=== PATIENT | male | born 1940 | race Caucasian/White ===

== ENCOUNTER 2022-05-31 06:00 | Outpatient (RCR) | payer MEDICARE, OTHER, SELFPAY | END 2022-06-29 23:59 | disposition home or self-care (01) | LOC: SPT 06:00 | PROVIDERS: Family Provider Family Medicine; Visit Provider Family Medicine | DX: H81.10 Benign paroxysmal vertigo, unspecified ear (principal) | CPT/HCPCS: 97140; 97161 ==

== ENCOUNTER 2022-09-25 17:05 | Emergency (ER) | payer MEDICARE, OTHER, SELFPAY ==
[2022-09-25] VITALS (23 sets, daily range): BP systolic 157–184; BP diastolic 86–106; PULSE 63–70; RESP 14–24; TEMP 36.8; O2SAT 93–97; BMI 31.1
--- NOTE | 2022-09-25 17:51 | CTR_ITS ---
PROCEDURE INFORMATION: Exam: CT Head Without Contrast Exam date and time: 09/25/2022 6:08 PM Age: 82 years old Clinical indication: Injury or trauma; Fall; Blunt trauma (contusions or hematomas); Consciousness not specified; Additional info: Posterior head impact with laceration, 82 yo TECHNIQUE: Imaging protocol: Computed tomography of the head without contrast. Radiation optimization: All CT scans at this facility use at least one of these dose optimization techniques: automated exposure control; mA and/or kV adjustment per patient size (includes targeted exams where dose is matched to clinical indication); or iterative reconstruction. REPORTING DATA: Count of CT and Cardiac NM exams in prior 12 months: This patient has received 0 known CTs and 0 known cardiac nuclear medicine studies in the 12 months prior to the current study. COMPARISON: No relevant prior studies available. RADIATION DOSE METRICS: Total DLP (mGy-cm): 1107.18 FINDINGS: Brain: [id number] diffuse white matter disease likely reflecting chronic microvascular ischemic changes. Cerebral ventricles: No ventriculomegaly. Paranasal sinuses: Paranasal sinus opacifications. Mastoid air cells: Visualized mastoid air cells are well aerated. Bones/joints: Unremarkable. No acute fracture. Soft tissues: Unremarkable. CT/CT head wo con* [id number] IMPRESSION: Negative for intracranial hemorrhage or mass effect.
--- NOTE | 2022-09-25 17:52 | ED_ITS ---
HPI - Fall General: Chief Complaint: Fall Stated Complaint: fall Time Seen by Provider: 09/25/22 17:12 History of Present Illness: 82-year-old male with a history of reported intermittent paroxysmal vertigo. Patient states he had a sudden onset of vertigo which caused him to lose his balance and fall backwards. He hit the back of his head and has a laceration there. He says that he did not lose consciousness. The dizziness only lasted about 5 seconds. This is happened to him several times in the past but has not happened in about 9 to 12 months. He denies any recent illnesses, fevers, chills, medication changes, dehydration, blood in his stools, chest pain, palpitations or other precipitating causes. He denies any other injuries. He has no neck pain. He has a normal mental status now. He is on aspirin but not anticoagulated. His tetanus is reportedly up-to-date within the last 10 years. He has a hx of having to go to PT for vertigo. Associated symptoms-after fall: Denies abdominal pain, chest pain, difficulty walking or neck pain Review of Systems General: Reports: 10 or more systems reviewed and unremarkable except in HPI and below Const: Denies: fever(s), chills or body aches Eyes: Denies: change in vision ENMT: Denies: throat pain Card: Denies: chest pain, edema or syncope Resp: Denies: dyspnea or productive cough GI: Denies: abdominal pain, nausea, vomiting or diarrhea : Denies: flank pain, dysuria or urinary frequency Musc: Denies: neck pain, back pain, extremity pain or extremity swelling Skin/Breast: Reports: other (laceration); Denies: rash or erythema Neuro: Reports: other (Transient dizziness--only lasted 5 s so hard to jermaine racterize); Denies: numbness in extremities, weakness in extremities, lack of coordination or difficulty walking COUNT INCLUDES THE [facility] ED PFSH: Medical History (Updated 09/25/22 @ 18:41 by Tyrone Huffman MD) BPH loc w urin obs/LUTS Cataract Diabetes type 2, controlled Diabetic gastroparesis Dyslipidemia associated with type 2 diabetes mellitus GERD (gastroesophageal reflux disease) HTN (hypertension) with goal to be determined Rotator cuff dysfunction Stroke Syncope Surgical History (Updated 09/16/22 @ 11:05 by Popeye Hernández MD) H/O shoulder surgery H/O total knee replacement Physical Exam Const: COMMON NORMALS: no limitations, alert and well nourished EXAM LIMITATIONS: no altered mental status HENMT: COMMON NORMALS: external ears normal HEAD & SCALP: contusion and laceration; no abrasion, no Land's sign, no hematoma and no raccoon eyes EXTERNAL EAR: Yes external ears normal MOUTH: no muffled voice OTHER: 3.5 cm laceration low occipital scalp Eye: COMMON NORMALS: Equal, round and reactive pupils present, EOMs intact bilaterally, conjunctivae normal and no scleral icterus CONJUNCTIVA: Yes conjunctivae normal PUPIL: Yes Equal, round and reactive pupils present Neck/C-Spine: COMMON NORMALS: no JVD GENERAL: Yes normal visual inspection, Yes trachea midline and Yes other (No midline tenderness. Normal painless AROM and PROM) Resp: COMMON NORMALS: normal respiratory effort and No use of accessory muscles Cardio: COMMON NORMALS: no JVD, regular rate and regular rhythm RATE: regular rate RHYTHM: regular rhythm GI: COMMON NORMALS: Soft to palpation and non-tender PALPATION: Yes Soft to palpation and No Guarding due to palpation present (GI) Extremity: COMMON NORMALS: normal to inspection Neuro: COMMON NORMALS: moves all extremities, no focal motor deficits and no sensory deficits noted SENSORIUM/ORIENTATION: Yes alert SPEECH: speech normal Psych: COMMON NORMALS: mental status grossly normal, Normal thought process present, cooperative, normal affect and speech normal SPEECH: Yes normal speech THOUGHT PROCESS: Normal thought process present Skin: OTHER: scalp laceration Procedures Laceration Laceration 1: Site: scalp Size (cm): 3.5 Description: linear Depth: simple, single layer Local Anesthetic: other anesthetic (Patient did not desire anesthetic. It was cleaned with iodine prior to closing.) Pre-repair: wound explored and deep structures intact Skin layer closed with: other ([place]) Number of sutures: 6 Course Vital Signs: Vital signs: Vital Signs Temperature 98.2 F 09/25/22 17:16 Pulse Rate 64 09/25/22 18:40 Respiratory Rate 21 H 09/25/22 18:40 Blood Pressure 184/106 09/25/22 18:40 Pulse Oximetry 97 09/25/22 18:40 Oxygen Delivery Me thod 09/25/22 18:30 MDM - Fall Medical Decision Making 82-year-old male with a transient nonspecific dizziness lasting just 5 seconds. This will be difficult to characterize as it could be TIA, arrhythmia, peripheral vertigo, hypotension, orthostasis, etc. Patient is asymptomatic now. He did fall back and hit the back of his head. He has a 3.5 cm laceration which was repaired with jackelyn. A CT scan of his head without contrast was negative. Patient was given information about head injury and potential for delayed onset head bleed including subdural. His jackelyn will need to be removed in 1 week. I asked the patient and his friend to follow-up with his primary care doctor if he has another episode of dizziness or to return to the emergency department. Lab Data Radiology Impressions Head CT 09/25/22 17:51 IMPRESSION: Negative for intracranial hemorrhage or mass effect. Discharge Plan Discharge Patient Disposition: Home Clinical Impression: Closed head injury, Nonspecific dizziness, Laceration of scalp Condition: Stable Prescriptions: No Action (DME) lancets [Monolet Lancets] 21 gauge misc See Rx Instructions .ROUTE Rx Instructions: Test once a day. (DME) Contour Next Test Strips Strip See Rx Instructions .ROUTE Rx Instructions: Test once a day. peg 3350-electrolytes [GaviLyte-G] 236-22.74-6.74 -5.86 gram recon soln 240 ml PO Q10M Rx Instructions: until fecal effluent is clear triamcinolone acetonide 0.1 % cream 1 applic topical BID atenolol 50 mg tablet 50 mg PO DAILY Qty: 30 5RF meclizine 25 mg tablet 25 mg PO TID PRN (Reason: dizziness) Qty: 90 5RF metformin 1,000 mg tablet 1,000 mg PO BID Qty: 60 5RF metoclopramide HCl 10 mg tablet 10 mg PO BID Qty: 60 5RF pantoprazole 40 mg tablet,delayed release (DR/EC) 40 mg PO DAILY PRN (Reason: acid reflux) Qty: 30 5RF pravastatin 80 mg tablet 80 mg PO DAILY Qty: 30 5RF terazosin 10 mg capsule 10 mg PO DAILY Qty: 30 5RF valsartan 80 mg tablet 80 mg PO BID Qty: 60 5RF aspirin 81 mg tablet,delayed release (DR/EC) 81 mg PO DAILY mecobalamin (vitamin B12) 1,000 mcg tablet,chewable 1,000 mcg PO DAILY cholecalciferol (vitamin D3) 50 mcg (2,000 unit) capsule 50 mcg PO DAILY ferrous fumarate 325 mg (106 mg iron) tablet 325 mg PO DAILY 30 Days Qty: 30 0RF glimepiride 2 mg tablet 2 mg PO DAILY Qty: 30 5RF Discharge Orders: Discharge ED (Routine); Ordered 09/25/22 Ordered By: Tyrone Huffman Referrals: Popeye Hernández MD [Primary Care Provider] - 4-7 days (Transient dizzy spell. Fell down, hit back of head. Has scalp laceration.) Discharge Diet: Usual diet Discharge Activity: Increase activity as tolerated Patient Instructions: Head Injury (ED), Dizziness (ED), Staple Care (ED) Activity Restrictions/Additional Instructions: Your jackelyn need to be removed in 1 week. If there are signs of infection, return to ER. The dizziness was brief. If it returns or you start experiencing new symptoms, call your doctor or return to ER. Coding Level of Care Code ED [employer]r for [employer]
[2022-09-25] MEDS: scopolamine 1.5 Patch 1 PATCH TRANSDERMA (18:54)
== END 2022-09-25 19:03 | disposition home or self-care (01) ==
PROVIDERS: Emergency Provider Emergency Medicine; PCP Family Medicine Adult Medicine
DX: R42 Dizziness and giddiness (principal); S09.8XXA Other specified injuries of head, initial encounter; S01.01XA Laceration without foreign body of scalp, initial encounter; Z79.82 Long term (current) use of aspirin; Z79.84 Long term (current) use of oral hypoglycemic drugs; E11.9 Type 2 diabetes mellitus without complications; E78.5 Hyperlipidemia, unspecified; I10 Essential (primary) hypertension; Z86.73 Personal history of transient ischemic attack (TIA), and cerebral infarction without residual deficits; W18.30XA Fall on same level, unspecified, initial encounter; Z23 Encounter for immunization
CPT/HCPCS: 12002; 70450; 99284

== ENCOUNTER → 2022-09-30 09:31 | Outpatient (BNVA) | payer MEDICARE, OTHER, SELFPAY | PROVIDERS: PCP Family Medicine Adult Medicine; Visit Provider Family Medicine Adult Medicine | DX: I10 Essential (primary) hypertension (principal); R55 Syncope and collapse; E11.9 Type 2 diabetes mellitus without complications; E11.69 Type 2 diabetes mellitus with other specified complication; E78.5 Hyperlipidemia, unspecified; R42 Dizziness and giddiness | CPT/HCPCS: 80053; 80061; 83036; 84443; 85025 ==

== ENCOUNTER → 2022-12-29 09:39 | Outpatient (BNVA) | payer MEDICARE, OTHER, SELFPAY | PROVIDERS: PCP Family Medicine Adult Medicine; Visit Provider Family Medicine Adult Medicine | DX: E11.9 Type 2 diabetes mellitus without complications (principal); D61.818 Other pancytopenia; D64.9 Anemia, unspecified | CPT/HCPCS: 80048; 83036; 85025 ==

== ENCOUNTER → 2023-04-24 08:23 | Outpatient (BNVA) | payer MEDICARE, OTHER, SELFPAY | PROVIDERS: PCP Family Medicine Adult Medicine; Referring Provider Family Medicine Adult Medicine; Visit Provider Psychiatry & Neurology Neurology | DX: R41.3 Other amnesia (principal); E55.9 Vitamin D deficiency, unspecified; R44.1 Visual hallucinations; R47.02 Dysphasia | CPT/HCPCS: 0346U; 36415; 82306; 82542; 82607; 82746; 83735; 83921; 86592; 86780; 99203 ==

== ENCOUNTER 2023-05-23 07:51 | Outpatient (CLI) | payer MEDICARE, OTHER, SELFPAY ==
--- NOTE | 2023-05-23 08:00 | MR_ITS ---
WS: [id number] MRI HEAD WITHOUT CONTRAST TECHNIQUE: Sagittal T1, T2 axial, T2 axial FLAIR, axial and coronal T1 images, axial susceptibility w eighted imaging, axial diffusion weighted images, and coronal T2 images were obtained. CLINICAL INFORMATION: R41.3 - Other amnesia COMPARISON: CT 09/25/2022 FINDINGS: Small 6 mm focus of equivocal restricted diffusion involving the LEFT posterior frontal lobe at the c ortex laterally suspicious for a small amount of acute to subacute ischemia. Small amount of T2 signa l abnormality in this area. This is only seen on one image and could represent artifact or T2 shine t hrough. Otherwise no evidence of restricted diffusion. Advanced small vessel changes with moderate parenchyma l volume loss. Innumerable chronic infarcts and lacunar infarcts in the cerebellum bilaterally. Encep halomalacia in the LEFT cerebellar hemisphere. Normal vascular flow voids at the skull base. No extra -axial fluid collections. No evidence of mass or mass effect. Mild paranasal sinusitis. Mastoid air cells are well aerated. Normal posterior nasopharynx and paraph aryngeal fat. Small vessel changes in the arvind. Tiny chronic lacunar infarct LEFT thalamus. Moderate symmetric atrophy temporal lobes and hippocampal formations. Normal optic chiasm and pituitary infund ibulum. Tiny punctate focus of hemosiderin in the RIGHT cerebellum. No other suspicious findings. IMPRESSION: 1. Equivocal 6 mm focus of acute to subacute ischemia in the LEFT posterior frontal cortex laterally versus artifact or T2 shine through. This is only seen on one image. 2. Moderate to advanced small vessel changes with moderate parenchymal volume loss. 3. Innumerable chronic lacunar infarcts with peripheral cortical infarcts in the cerebellum LEFT gre ater than RIGHT with encephalomalacia. 4. Tiny chronic lacunar infarct in the LEFT thalamus. 5. Tiny punctate focus of hemosiderin in the RIGHT cerebellum. 6. Moderate symmetric atrophy temporal lobes and hippocampal formations. 7. Small vessel changes in the arvind. 8. Mild paranasal sinusitis.
--- NOTE | 2023-05-23 08:45 | USCV_ITS ---
Rufus Gonsalez Age: 83 Gender: M : 1940 Exam Date: 05/23/2023 08:48 Ordering Phys: Carlyle Pack MD Technologist: COLLEEN [place] [facility] [place]: DIZZINESS AND WEAKNESS Risk Factors: Previous Vascular Surgery: Right Brachial BP: / Left Brachial BP: / Right Left Velocity (cm/s) Spectral Plaque Velocity (cm/s) Spectral Plaque Syst/Diast Broadening Syst/Diast Broadening 63.00/ 13.40 Prox CCA 79.00 / 13.90 94.80/ 15.40 Mid CCA 68.20 / 16.10 47.90/ 13.70 Distal CCA 55.50 / 14.50 37.60/ 14.20 Prox ICA 38.40 / 11.80 47.60/ 11.40 Mid ICA 61.20 / 18.00 56.70/ 14.80 Distal ICA 59.00 / 18.70 76.90 ECA 64.90 0.60 ICA/CCA 0.77 Antegrade Vertebral Antegrade 51.30/ 14.00 cm/s 50.40/ 14.50 cm/s Tri Subclavian Tri 85.90 101.9 0 FINDINGS Comparison: none available. No significant elevation of systolic or diastolic velocities. Tortuous carotid arteries. Minimal atherosclerosis. Antegrade vertebral arteries. CONCLUSIONS Bilateral ICA stenosis less than 50%. Dr. Renee Low DO (Electronically Signed) Final Date: 23 May 2023 09:40 S
== END 2023-05-23 07:52 | disposition home or self-care (01) ==
LOC: RAD 07:52
PROVIDERS: PCP Family Medicine Adult Medicine; Visit Provider Psychiatry & Neurology Neurology
DX: R41.3 Other amnesia (principal); R42 Dizziness and giddiness; R53.1 Weakness; I65.23 Occlusion and stenosis of bilateral carotid arteries; I67.82 Cerebral ischemia; Z86.73 Personal history of transient ischemic attack (TIA), and cerebral infarction without residual deficits
CPT/HCPCS: 70551; 93880

== ENCOUNTER 2023-05-29 12:40 | Emergency (ER) | payer MEDICARE, OTHER, SELFPAY ==
[2023-05-29 13:07] VITALS: BP 184/99; PULSE 70; RESP 18; TEMP 36.6; O2SAT 93; BMI 31.1
--- NOTE | 2023-05-29 13:23 | ED_ITS ---
HPI - Fall General: Chief Complaint: Fall Stated Complaint: fall, left hand lac, face lac Time Seen by Provider: 05/29/23 13:01 Source: patient and family Mode of arrival: wheelchair Limitations: no limitations History of Present Illness: Patient is a very nice 83-year-old male who presents to the ED today presumably with his daughter for evaluation following a fall. Daughter states patient was getting out of his automatic recliner and states the foot rest was not fully down and patient got his foot caught up in it causing him to fall. He did strike his head. No LOC. His main complaint is a laceration to the palmar aspect of his left hand. He has minor abrasions to his face and left elbow with no tenderness here. He does report some neck pain. No back pain. Has been ambulatory without difficulty since the fall. Unknown last tetanus. He is not on anticoagulation. MD complaint: fall Onset (ago): hour(s) Fall from: standing Fall witnessed: yes, by family Place fall occurred: home Loss of consciousness: None Prolonged down time: no Symptoms prior to fall: none Context: tripped/slipped Location of injury: head, face and neck Location of injury - extremities: Left: elbow and hand Severity: mild Associated symptoms-after fall: Reports neck pain; Denies chest pain, difficulty walking, headache(s) or lightheadedness Review of Systems Eyes: Denies: change in vision, blurry vision, floaters or seeing flashes Card: Denies: chest pain, palpitations, lightheadedness, syncope or pre- syncope Resp: Denies: dyspnea GI: Denies: nausea or vomiting Musc: Reports: neck pain and extremity pain (L hand); Denies: back pain, extremity swelling, joint pain, joint swelling, joint redness, joint warmth or limited range of motion Skin/Breast: Reports: other (L hand laceration); Denies: rash Neuro: Denies: headache(s), numbness in extremities, weakness in extremities, sensory changes, difficulty walking or dizziness [facility] PFSH: Medical History Anemia Behavior related to cognitive impairment BPH loc w urin obs/LUTS Cataract CKD stage 3 due to type 2 diabetes mellitus Diabetes type 2, controlled 12/03/2020 A1C 6.4, & 09/30/2022 A1C 7.3 Diabetic gastroparesis Dyslipidemia associated with type 2 diabetes mellitus GERD (gastroesophageal reflux disease) HTN (hypertension) with goal to be determined Pancytopenia Restless legs syndrome (RLS) Rotator cuff dysfunction Stroke Surgical History H/O shoulder surgery H/O total knee replacement Social History Smoking and tobacco/nicotine status: never used tobacco/nicotine Alcohol intake: never Substance/Drug Use: never Physical Exam Const: COMMON NORMALS: no acute distress, average body habitus, patient oriented x3, no limitations, healthy appearing, alert and well nourished GENERAL APPEARANCE: cooperative ORIENTATION/CONSCIOUSNESS: Yes awake, Yes oriented to person, Yes oriented to place and Yes oriented to time HENMT: COMMON NORMALS: normocephalic, atraumatic and TM's normal bilaterally HEAD & SCALP: normal to inspection, normocephalic and atraumatic; no Land's sign, no hematoma and no raccoon eyes FACE & SINUS: normal facial exam and other (very minor facial abrasions with no bony tenderness) TYMPANIC MEMBRANE: TM's normal bilaterally MOUTH: other (no intraoral injuries noted) Eye: COMMON NORMALS: Equal, round and reactive pupils present and EOMs intact bilaterally GENERAL EYE: appearance normal, both eyes and all related structures and normal light reflex PUPIL: Yes Equal, round and reactive pupils present DIRECT OPHTHALMOSCOPY: Yes normal light reflex Neck/C-Spine: COMMON NORMALS: full ROM GENERAL: Yes normal visual inspectio n CERVICAL SPINE: Yes cervical ROM normal, No pain with cervical ROM, Yes Cervical spine tenderness, No step off deformity and Yes Paracervical muscle tenderness Chest: COMMONS NORMALS: normal inspection of the chest and normal palpation of entire chest wall Resp: COMMON NORMALS: normal respiratory effort and clear to auscultation bilaterally AUSCULTATION: clear to auscultation bilaterally Cardio: COMMON NORMALS: regular rate and regular rhythm RATE: regular rate RHYTHM: regular rhythm GI: COMMON NORMALS: Normal to inspection, nondistended, normoactive bowel sounds present, Soft to palpation, non-tender, No hepatosplenomegaly present and no masses INSPECTION: Yes normal to inspection and No abdominal wall ecchymosis AUSCULTATION: Yes normoactive bowel sounds PALPATION: Yes Soft to palpation and Yes No hepatosplenomegaly present Back/Pelvis: COMMON NORMALS: thoracic and lumbar spine normal to inspection, no thoracic nor lumbar tenderness and thoraco-lumbar ROM normal Extremity: COMMON NORMALS: full ROM, capillary refill normal and no joint enlargement GENERAL: Yes normal exam except as noted LEFT UPPER EXTREMITY: Yes hand & digits (3.0cm palmar laceration; no tendon involvement) Left hand and digits: Yes ROM (normal) and Yes neurovascular exam (normal) OTHER: minor skin tear L elbow w/o pain-full ROM Neuro: JAKE COMA SCALE: document GCS findings Jake coma scale eye opening: Spontaneous Jake coma scale verbal response: Orientated Jake coma scale motor response: Obey commands [place] coma scale total score: 15 COMMON NORMALS: patient oriented x3, CN's II-XII intact bilaterally, moves all extremities, no focal motor deficits, no sensory deficits noted and gait normal SENSORIUM/ORIENTATION: Yes alert, Yes oriented to person, Yes oriented to place and Yes oriented to time SPEECH: speech normal GAIT: Yes Normal gait present Skin: TRAUMA: abrasion (minor) and laceration (L hand) Procedures Laceration Laceration 1: Site: hand Side (If applicable): left Size (cm): 3.0 Description: irregular and clean Depth: simple, single layer Local Anesthetic: lidocaine 2% Amount of anesthesia used (mL): 3.0 Pre-repair: wound explored and irrigated extensively Skin layer closed with: nylon Size (cm): 3-0 Number of sutures: 4 Technique: simple, interrupted Course Vital Signs: Vital signs: Vital Signs Temperature 97.9 F 05/29/23 13:07 Pulse Rate 70 05/29/23 13:07 Respiratory Rate 18 05/29/23 13:07 Blood Pressure 184/99 05/29/23 13:07 Pulse Oximetry 93 05/29/23 13:07 Oxygen Delivery Me thod Room Air 05/29/23 13:07 MDM - Fall Medical Decision Making CT head/cervical spine negative. Hand XR negative. Laceration repaired as documented. Wound care/infection precautions discussed. Tetanus updated. Return to ED precautions given. Lab Data Radiology Impressions Hand X-Ray 05/29/23 13:23 IMPRESSION: No acute findings. All radiology interpretation(s) finalized by discharge Discharge Plan Discharge Patient Disposition: Home Clinical Impression: Fall on same level from tripping Laceration of left hand Qualifiers: Encounter type: initial encounter Foreign body presence: without foreign body Qualified Code(s): S61.412A - Laceration without foreign body of left hand, initial encounter Condition: Stable Prescriptions: No Action vitamin B complex [Vitamins B Complex] Tablet 1 tab PO DAILY Qty: 90 0RF ferrous sulfate 324 mg (65 mg iron) tablet,delayed release (DR/EC) 324 mg PO DAILY cetirizine [All Day Allergy (cetirizine)] 10 mg tablet 10 mg PO DAILY PRN peg 3350-electrolytes [GaviLyte-G] 236-22.74-6.74 -5.86 gram recon soln 240 ml PO Q10M Rx Instructions: until fecal effluent is clear triamcinolone acetonide 0.1 % cream 1 applic topical BID aspirin 81 mg tablet,delayed release (DR/EC) 81 mg PO DAILY cholecalciferol (vitamin D3) 50 mcg (2,000 unit) capsule 50 mcg PO DAILY meclizine 25 mg tablet 25 mg PO .q 6 hr PRN (Reason: dizziness) Qty: 30 3RF (DME) motorized wheelchair See Rx Instructions .Route .MEDSUPPLY Qty: 1 0RF Rx Instructions: As directed glimepiride 4 mg tablet 4 mg PO BID Qty: 180 3RF Rx Instructions: administer one tablet with breakfast and one with supper ropinirole 2 mg tablet 2 mg PO .qhs Qty: 90 0RF (DME) Contour Next Test Strips Strip See Rx Instructions .Route Qty: 100 3RF Rx Instructions: Test once a day. (DME) lancets [Microlet Lancet] Misc See Rx Instructions .Route Qty: 400 11RF Rx Instructions: As directed pantoprazole 40 mg tablet,delayed release (DR/EC) 40 mg PO DAILY PRN (Reason: acid reflux) Qty: 30 5RF metformin 1,000 mg tablet 1,000 mg PO BID Qty: 60 5RF metoclopramide HCl 10 mg tablet 10 mg PO BID Qty: 60 5RF atenolol 50 mg tablet 50 mg PO DAILY Qty: 30 5RF valsartan 80 mg tablet 80 mg PO BID Qty: 60 5RF pravastatin 80 mg tablet 80 mg PO DAILY Qty: 30 5RF tamsulosin 0.4 mg capsule 0.4 mg PO DAILY Qty: 30 5RF Discharge Orders: Discharge ED (Routine); Ordered 05/29/23 Ordered By: Sari Duarte Referrals: Popeye Hernández MD [Primary Care Provider] - Activity Restrictions/Additional Instructions: CT scans and hand XR were negative. Keep wound/laceration clean with warm soap and water twice daily. Monitor for signs of infection such as redness, swelling, increased pain, or drainage. Please seek medical re-evaluation if these occur. If you received sutures today these will need to be removed (unless you were told by the provider that they are absorbable). The provider should have discussed with you the length of time until removal-7 DAYS. You may return to the emergency department for this service. 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
--- NOTE | 2023-05-29 13:23 | CT_ITS ---
WS: [id number] CT CERVICAL TRAUMA TECHNIQUE: Noncontrast CT of the cervical spine with coronal and sagittal reformatted images. CLINICAL INFORMATION: fall COMPARISON: None. DLP: 1395.[address] scans at [facility] use at least one of these dose optimization techniques: automated e xposure control; mA and/or kV adjustment per patient size (includes targeted exams where dose is matc hed to clinical indication); or iterative reconstruction. FINDINGS: Straightening of the normal cervical lordosis. Moderate spondylitic changes. Mild cervical curve conv ex LEFT. Anterior hypertrophic changes C4-C6. Normal craniocervical junction. Normal C1-C2 articulati on. Dens is normal in appearance. Normal occipital condyles. No high-grade spinal canal narrowing. No rmal C1 ring. No evidence of acute fracture or dislocation. Normal prevertebral soft tissues. Mastoids air cells are well aerated. IMPRESSION: No evidence of acute fracture or dislocation.
--- NOTE | 2023-05-29 13:23 | CT_ITS ---
WS: [id number] CT HEAD TECHNIQUE: Noncontrast CT of the head obtained from the skullbase to the vertex. CLINICAL INFORMATION: fall, struck head COMPARISON: MRI 05/23/2023 DLP: 1395.[address] scans at [facility] use at least one of these dose optimization techniques: automated e xposure control; mA and/or kV adjustment per patient size (includes targeted exams where dose is matc hed to clinical indication); or iterative reconstruction. FINDINGS: No evidence of intracranial hemorrhage or mass effect. Ventricular system and basal cisterns are kaufman nt. Moderate small vessel changes with moderate parenchymal volume loss. Chronic encephalomalacia in the cerebellum unchanged since the prior MRI compatible with chronic infarcts. Intracranial vascular calcification. LEFT maxillary sinusitis with air-fluid level. Scattered fluid in the ethmoid air cells. Normal posterior nasopharynx. Mastoid air cells are well ae rated. IMPRESSION: 1. No evidence of intracranial hemorrhage or mass effect. 2. LEFT maxillary sinusitis. 3. Moderate small cell changes with moderate parenchymal volume loss. 4. Chronic infarcts in the cerebellum bilaterally with encephalomalacia unchanged.
--- NOTE | 2023-05-29 13:23 | XRR_ITS ---
PROCEDURE INFORMATION: Exam: XR Left Hand Exam date and time: 05/29/2023 1:28 PM Age: 83 years old Clinical indication: Injury or trauma; Other: Laceration; Hand; Left; Additional info: Fall, palmar laceration TECHNIQUE: Imaging protocol: Radiologic exam of the left hand. Views: 3 or more views. COMPARISON: No relevant prior studies available. FINDINGS: Bones/joints: Alignment is normal. Severe diffuse interphalangeal osteoarthritis. Mild osteoarthritis at the metacarpophalangeal joints. Moderate osteoarthritis at the triscaphe and 1st carpometacarpal joints. No acute fracture. Soft tissues: Visible soft tissues are unremarkable. No radiopaque foreign body. XR/XR hand LT min 3V* [id number] IMPRESSION: No acute findings.
[2023-05-29] MEDS: tetanus-dipt-pertussis 0.5 mL SDV IM (14:06)
== END 2023-05-29 15:04 | disposition home or self-care (01) ==
PROVIDERS: Emergency Provider Physician Assistant; PCP Family Medicine Adult Medicine
DX: S61.412A Laceration without foreign body of left hand, initial encounter (principal); Z79.82 Long term (current) use of aspirin; Z79.84 Long term (current) use of oral hypoglycemic drugs; E11.22 Type 2 diabetes mellitus with diabetic chronic kidney disease; I12.9 Hypertensive chronic kidney disease with stage 1 through stage 4 chronic kidney disease, or unspecified chronic kidney disease; N18.30 Chronic kidney disease, stage 3 unspecified; E78.5 Hyperlipidemia, unspecified; Z86.73 Personal history of transient ischemic attack (TIA), and cerebral infarction without residual deficits; Z23 Encounter for immunization; W01.0XXA Fall on same level from slipping, tripping and stumbling without subsequent striking against object, initial encounter
CPT/HCPCS: 12002; 70450; 72125; 73130; 90471; 90715; 99284

== ENCOUNTER 2023-06-08 13:09 | Emergency (ER) | payer MEDICARE, OTHER, SELFPAY ==
--- NOTE | 2023-06-08 13:24 | W.ED.UPPEXIN ---
HPI - Extremity Injury (Upper) General: Stated Complaint: need stiches taken out Time Seen by Provider: 06/08/23 13:22 History of Present Illness: Patient returns today from an incident that occurred on May 29 in which she had stitches placed into the palmar left hand. Patient is needing removal of sutures. Patient denies any complaints. Patient appears nontoxic. Patient appears in no pain. Wound appears well approximated and healed. Review of Systems General: Reports: 10 or more systems reviewed and unremarkable except in HPI and below PFSH ED PFSH: Medical History Anemia Behavior related to cognitive impairment BPH loc w urin obs/LUTS Cataract CKD stage 3 due to type 2 diabetes mellitus Diabetes type 2, controlled 12/03/2020 A1C 6.4, & 09/30/2022 A1C 7.3 Diabetic gastroparesis Dyslipidemia associated with type 2 diabetes mellitus GERD (gastroesophageal reflux disease) HTN (hypertension) with goal to be determined Pancytopenia Restless legs syndrome (RLS) Rotator cuff dysfunction Stroke Surgical History H/O shoulder surgery H/O total knee replacement Social History Smoking and tobacco/nicotine status: never used tobacco/nicotine Alcohol intake: never Substance/Drug Use: never Physical Exam Const: COMMON NORMALS: alert HENMT: COMMON NORMALS: normocephalic HEAD & SCALP: normocephalic Neck/C-Spine: COMMON NORMALS: full ROM Resp: COMMON NORMALS: normal respiratory effort Extremity: LEFT UPPER EXTREMITY: Yes hand & digits (Healed wound palmar hand) Left hand and digits: Yes ROM Neuro: SENSORIUM/ORIENTATION: Yes alert Skin: WOUNDS: Yes wounds noted (Left hand, sutures intact, well approximated, healed) MDM - Extremity Injury (Upper) Medical Decision Making 83-year-old male patient comes in today for removal of sutures. On exam patient has well-healed wound with sutures intact and area well approximated. Nursing removed sutures without difficulty. Patient was instructed to monitor site for signs of infection and to use an emollient to the wound to help with scarring. Patient reported understanding and agreed to plan. Differential diagnosis includes not limited to dehiscence of wound, wound infection, retained foreign body. No radiology studies performed this visit Discharge Plan Discharge Patient Disposition: Home Clinical Impression: Encounter for removal of sutures Condition: Stable Prescriptions: No Action vitamin B complex [Vitamins B Complex] Tablet 1 tab PO DAILY Qty: 90 0RF ferrous sulfate 324 mg (65 mg iron) tablet,delayed release (DR/EC) 324 mg PO DAILY cetirizine [All Day Allergy (cetirizine)] 10 mg tablet 10 mg PO DAILY PRN peg 3350-electrolytes [GaviLyte-G] 236-22.74-6.74 -5.86 gram recon soln 240 ml PO Q10M Rx Instructions: until fecal effluent is clear triamcinolone acetonide 0.1 % cream 1 applic topical BID aspirin 81 mg tablet,delayed release (DR/EC) 81 mg PO DAILY cholecalciferol (vitamin D3) 50 mcg (2,000 unit) capsule 50 mcg PO DAILY meclizine 25 mg tablet 25 mg PO .q 6 hr PRN (Reason: dizziness) Qty: 30 3RF (DME) motorized wheelchair See Rx Instructions .Route .MEDSUPPLY Qty: 1 0RF Rx Instructions: As directed glimepiride 4 mg tablet 4 mg PO BID Qty: 180 3RF Rx Instructions: administer one tablet with breakfast and one with supper ropinirole 2 mg tablet 2 mg PO .qhs Qty: 90 0RF (DME) Contour Next Test Strips Strip See Rx Instructions .Route Qty: 100 3RF Rx Instructions: Test once a day. (DME) lancets [Microlet Lancet] Misc See Rx Instructions .Route Qty: 400 11RF Rx Instructions: As directed pantoprazole 40 mg tablet,delayed release (DR/EC) 40 mg PO DAILY PRN (Reason: acid reflux) Qty: 30 5RF metformin 1,000 mg tablet 1,000 mg PO BID Qty: 60 5RF metoclopramide HCl 10 mg tablet 10 mg PO BID Qty: 60 5RF atenolol 50 mg tablet 50 mg PO DAILY Qty: 30 5RF pravastatin 80 mg tablet 80 mg PO DAILY Qty: 30 5RF valsartan 80 mg tablet 80 mg PO BID Qty: 180 1RF tamsulosin 0.4 mg capsule 0.4 mg PO DAILY Qty: 30 5RF Discharge Orders: Discharge ED (Routine); Ordered 06/08/23 Ordered By: Eric Erwin Referrals: Popeye Hernández MD [Primary Care Provider] - Discharge Diet: Usual diet Discharge Activity: Increase activity as tolerated Patient Instructions: Stitches Removal (ED) Activity Restrictions/Additional Instructions: Continue routine care. Monitor site for signs of infection such as redness, fever, or drainage. Return to ED for new concerns or worsening symptoms. Coding Level of Care Code ED [employer] for [employer]
== END 2023-06-08 14:20 | disposition home or self-care (01) ==
PROVIDERS: Emergency Provider Nurse Practitioner Family; PCP Family Medicine Adult Medicine
DX: Z48.02 Encounter for removal of sutures (principal); Z79.82 Long term (current) use of aspirin; Z79.84 Long term (current) use of oral hypoglycemic drugs; E11.22 Type 2 diabetes mellitus with diabetic chronic kidney disease; I12.9 Hypertensive chronic kidney disease with stage 1 through stage 4 chronic kidney disease, or unspecified chronic kidney disease; N18.30 Chronic kidney disease, stage 3 unspecified; E78.5 Hyperlipidemia, unspecified; Z86.73 Personal history of transient ischemic attack (TIA), and cerebral infarction without residual deficits
CPT/HCPCS: 99281

== ENCOUNTER → 2023-07-19 13:53 | Outpatient (BNVA) | payer MEDICARE, OTHER, SELFPAY | PROVIDERS: PCP Family Medicine Adult Medicine; Visit Provider Psychiatry & Neurology Neurology | DX: I63.9 Cerebral infarction, unspecified (principal); I12.9 Hypertensive chronic kidney disease with stage 1 through stage 4 chronic kidney disease, or unspecified chronic kidney disease; E11.22 Type 2 diabetes mellitus with diabetic chronic kidney disease; N18.30 Chronic kidney disease, stage 3 unspecified; Z79.84 Long term (current) use of oral hypoglycemic drugs | CPT/HCPCS: 99212 ==

== ENCOUNTER → 2023-08-18 10:46 | Outpatient (BNVA) | payer MEDICARE, OTHER, SELFPAY | PROVIDERS: PCP Family Medicine Adult Medicine; Visit Provider Family Medicine Adult Medicine | DX: I10 Essential (primary) hypertension (principal); E11.22 Type 2 diabetes mellitus with diabetic chronic kidney disease; N18.30 Chronic kidney disease, stage 3 unspecified; E11.9 Type 2 diabetes mellitus without complications; I63.9 Cerebral infarction, unspecified; R55 Syncope and collapse; E11.43 Type 2 diabetes mellitus with diabetic autonomic (poly)neuropathy; K31.84 Gastroparesis; K21.9 Gastro-esophageal reflux disease without esophagitis; E11.69 Type 2 diabetes mellitus with other specified complication; E78.5 Hyperlipidemia, unspecified; G25.81 Restless legs syndrome; N40.1 Benign prostatic hyperplasia with lower urinary tract symptoms; I63.512 Cerebral infarction due to unspecified occlusion or stenosis of left middle cerebral artery; D50.8 Other iron deficiency anemias | CPT/HCPCS: 80053; 83036 ==

== ENCOUNTER → 2023-11-08 14:53 | Outpatient (BNVA) | payer MEDICARE, OTHER, SELFPAY | PROVIDERS: PCP Family Medicine Adult Medicine; Visit Provider Psychiatry & Neurology Neurology | DX: Z86.73 Personal history of transient ischemic attack (TIA), and cerebral infarction without residual deficits (principal); R41.3 Other amnesia | CPT/HCPCS: 99212 ==

== ENCOUNTER → 2024-04-03 12:25 | Outpatient (BNVA) | payer MEDICARE, OTHER, SELFPAY | PROVIDERS: PCP Family Medicine Adult Medicine; Referring Provider Family Medicine Adult Medicine; Visit Provider Nurse Practitioner Family | DX: D48.5 Neoplasm of uncertain behavior of skin (principal); L57.0 Actinic keratosis; L57.8 Other skin changes due to chronic exposure to nonionizing radiation; L82.1 Other seborrheic keratosis; L81.4 Other melanin hyperpigmentation; L91.8 Other hypertrophic disorders of the skin; D22.5 Melanocytic nevi of trunk | CPT/HCPCS: 11102; 17000; 99203 ==

== ENCOUNTER → 2024-04-22 13:03 | Outpatient (BNVA) | payer MEDICARE, OTHER, SELFPAY | PROVIDERS: PCP Family Medicine Adult Medicine; Visit Provider Dermatology | DX: C44.319 Basal cell carcinoma of skin of other parts of face (principal); L30.0 Nummular dermatitis | CPT/HCPCS: 14040; 17311; 99214 ==

== ENCOUNTER → 2024-09-27 09:50 | Outpatient (BNVA) | payer MEDICARE, OTHER, SELFPAY | PROVIDERS: PCP Family Medicine Adult Medicine; Visit Provider Family Medicine | DX: D50.8 Other iron deficiency anemias (principal); I10 Essential (primary) hypertension; E11.69 Type 2 diabetes mellitus with other specified complication | CPT/HCPCS: 80053; 80061; 82728; 83036; 83550; 84439; 84443; 85025 ==

== ENCOUNTER → 2024-11-22 10:08 | Outpatient (BNVA) | payer MEDICARE, OTHER, SELFPAY | PROVIDERS: PCP Family Medicine; Visit Provider Nurse Practitioner Family | DX: L57.8 Other skin changes due to chronic exposure to nonionizing radiation (principal); L82.1 Other seborrheic keratosis; L81.4 Other melanin hyperpigmentation; L30.0 Nummular dermatitis; Z08 Encounter for follow-up examination after completed treatment for malignant neoplasm; Z85.828 Personal history of other malignant neoplasm of skin; L57.0 Actinic keratosis; D48.5 Neoplasm of uncertain behavior of skin | CPT/HCPCS: 11102; 17004; 99214 ==

== ENCOUNTER → 2024-12-18 10:52 | Outpatient (BNVA) | payer MEDICARE, OTHER, SELFPAY | PROVIDERS: PCP Family Medicine; Visit Provider Family Medicine | DX: N17.0 Acute kidney failure with tubular necrosis (principal); N40.1 Benign prostatic hyperplasia with lower urinary tract symptoms; I10 Essential (primary) hypertension; E11.69 Type 2 diabetes mellitus with other specified complication; K21.9 Gastro-esophageal reflux disease without esophagitis; E11.22 Type 2 diabetes mellitus with diabetic chronic kidney disease; N18.30 Chronic kidney disease, stage 3 unspecified; D50.8 Other iron deficiency anemias; E11.43 Type 2 diabetes mellitus with diabetic autonomic (poly)neuropathy; K31.84 Gastroparesis; G25.81 Restless legs syndrome; R53.81 Other malaise; R31.9 Hematuria, unspecified | CPT/HCPCS: 80053; 85025; 87086 ==

== ENCOUNTER 2024-12-20 16:01 | Emergency (ER) | payer MEDICARE, OTHER, SELFPAY ==
[2024-12-20 16:12] VITALS: BP 227/92; PULSE 66; RESP 18; TEMP 36.9; O2SAT 95; BMI 31.4
--- NOTE | 2024-12-20 16:21 | ED_ITS ---
HPI - Male Genitourinary 2 General: Chief complaint: Urogenital-Male Stated complaint: Blood in Urine Time Seen by Provider: 12/20/24 16:02 History of Present Illness: 84-year-old man with a history of man ia, anemia, restless legs, chronic kidney disease, BPH, hyperlipidemia, type 2 diabetes mellitus, stroke and hypertension who presents emergency room with concern for blood in his urine. Family had noticed his urine looked darker and thought it might be blood. Patient states symptoms started on Monday. Home health nurse called EMS because of urine being darker than usual today. No known fevers. No nausea or vomiting. No abdominal pain. No chest pain Related Data Home Medications ?Medication ?Instructions ?Recorded ?Confirmed cholecalciferol (vitamin D3) 50 50 mcg PO DAILY 12/18/24 mcg (2,000 unit) capsule Previous Rx's ?Medication ?Instructions ?Recorded motorized wheelchair #1 ea 10/25/22 aspirin 81 mg tablet,delayed 81 mg PO DAILY circulatio n #90 tabs 11/08/24 release atenolol 50 mg tablet See Rx Instructions .Route 0 11/08/24 .COMPLEX #90 tabs blood sugar diagnostic (Contour #100 ea 11/08/24 Next Test Strips) cetirizine 10 mg tablet (All Day 10 mg PO DAILY PRN Allergy (cetirizine)) allergy/diaainess #90 tabs ferrous sulfate 324 mg (65 mg 324 mg PO DAILY anemia # 90 tabs 11/08/24 iron) tablet,delayed release glimepiride 4 mg tablet 4 mg PO BID diabetes #180 ta bs 11/08/24 lancets (Microlet Lancet) #400 ea 11/08/24 meclizine 25 mg tablet 25 mg PO .q 6 hr PRN dizzine ss 11/08/24 #180 tabs metformin 1,000 mg tablet 1,000 mg PO BID diabetes #18 0 tabs 11/08/24 metoclopramide HCl 10 mg tablet 10 mg PO BID gastropar esis #180 11/08/24 tabs pantoprazole 40 mg tablet,delayed 40 mg PO DAILY PRN a anila reflux #90 11/08/24 release tabs pioglitazone 30 mg tablet (Actos) 30 mg PO DAILY diabe judy #90 tabs 11/08/24 ropinirole 2 mg tablet See Rx Instructions .Route 0 11/08/24 .COMPLEX #90 tabs sitagliptin phosphate 100 mg 100 mg PO DAILY diabetes #90 tabs 11/08/24 tablet (Januvia) tamsulosin 0.4 mg capsule See Rx Instructions .Route 0 11/08/24 .COMPLEX #90 caps valsartan 80 mg tablet 80 mg PO DAILY blood pressur e and 11/08/24 kidney protection #90 tabs hydrochlorothiazide 25 mg tablet 25 mg PO QAM #14 tabs 12/18/24 nitrofurantoin 100 mg PO Q12H 5 days #10 ca ps 12/18/24 monohydrate/macrocrystals 100 mg capsule (Macrobid) cefdinir 300 mg capsule 300 mg PO BID 7 days #14 cap s 12/20/24 Allergies Allergy/AdvReac Type Severity Reaction Status Date / Time No Known Allergies Allergy Verified 12/18/24 09:56 Review of Systems 2 Narrative: Constitutional symptoms: Negative except as documented in HPI. Skin symptoms: Negative except as documented in HPI. Eye symptoms: Negative except as documented in HPI. ENMT symptoms: Negative except as documented in HPI. Respiratory symptoms: Negative except as documented in HPI. Cardiovascular symptoms: Negative except as documented in HPI. Gastrointestinal symptoms: Negative except as documented in HPI. Genitourinary symptoms: Negative except as documented in HPI. Musculoskeletal symptoms: Negative except as documented in HPI. Neurologic symptoms: Negative except as documented in HPI. Psychiatric symptoms: Negative except as documented in HPI. Endocrine symptoms: Negative except as documented in HPI. PFSH ED 2 PFSH: Medical History Debilitated patient Health counseling Orthostatic dizziness Behavior related to cognitive impairment Anemia Pancytopenia Restless legs syndrome (RLS) CKD stage 3 due to type 2 diabetes mellitus BPH loc w urin obs/LUTS Dyslipidemia associated with type 2 diabetes mellitus GERD (gastroesophageal reflux disease) Diabetic gastroparesis Rotator cuff dysfunction Cataract HTN (hypertension) with goal to be determined Stroke Diabetes type 2, controlled Surgical History H/O shoulder surgery H/O total knee replacement Social History Smoking and tobacco/nicotine status: former use of tobacco/nicotine Alcohol intake: never Substance/Drug Use: never Physical Exam 2 Narrative: EXAM NARRATIVE: General: Alert, no acute distress. Skin: Warm, dry. Head: Normocephalic, atraumatic. Neck: Supple, trachea midline. Eye: Extraocular movements are intact. Ears, nose, mouth and throat: mucosa moist. Cardiovascular: Regular, Normal peripheral perfusion. Respiratory: Lungs are clear to auscultation, respirations are non-labored, breath sounds are equal, Symmetrical chest wall expansion. Gastrointestinal: Soft, Nontender, Non distended Musculoskeletal: Normal ROM, no deformity. Neurological: Alert and oriented, No focal neurological deficit observed. Psychiatric: Cooperative, appropriate mood & affect. Course 2 Vital Signs: Vital signs: Vital Signs Temperature 98.5 F 12/20/24 16:12 Pulse Rate 64 12/20/24 16:25 Respiratory Rate 18 12/20/24 16:12 Blood Pressure 176/76 12/20/24 16:25 Pulse Oximetry 92 12/20/24 16:25 Oxygen Delivery Me thod Room Air 12/20/24 16:25 MDM - Male Medical Decision Making Medical decision making: Differential diagnosis for complaint of hematuria including but not limited to and based on the above HPI, review of systems and physical exam: UTI / hemorrhagic cystitis, pyelonephritis, kidney stones, bladder cancer Orders placed to evaluate differential diagnosis based on the above differential, HPI and physical exam Lab Review: Laboratory results were reviewed and interpreted by myself the emergency room physician. No leukocytosis. Stable anemia. Creatinine slightly elevated over his baseline at 1.7. He was just darted on HCTZ. We are can hold that for now. Urine does show hematuria with very few whites. No bacteria. Will treat for possible continued urinary tract infection since he does have hematuria and have him follow with urology. With his worsening renal failure not going to do a CT with contrast today which could help evaluate this but I think cystoscopy with urology is a better choice at this time. I reviewed the patient's medical record. Reexamination: Patient remained stable. No increased work of breathing. No altered mental status. No focal motor deficits. Blood pressure has improved spontaneously. I discussed findings with his . She expresses understanding. Sounds like he has some worsening sundowning and dementia. This may need to be addressed by his primary as well. This is been going on for some time. I do not see any acute findings and there is not been an acute worsening of the symptoms. Assessment and plan: Hematuria Dehydration ? IV Rocephin and IV fluids. - Discharged home - Discussed plan with patient. Answered any questions. - Evaluation and treatment of this problem were appropriate in the emergency setting. Lab Data 12/20/24 16:12 12/20/24 16:12 Laboratory Results WBC 4.60 10^3/uL (3.29-11.43) 12/20/24 16:12 RBC 3.26 10^6/uL (3.85-5.65) L 12/20/24 16:12 Hgb 9.00 g/dL (11.27-16.99) L 12/20/24 16:12 Hct 29.5 % (37-53) L 12/20/24 16:12 MCV 90.5 fl (82-101) 12/20/24 16:12 MCH 27.6 pg (27-33) 12/20/24 16:12 MCHC 30.5 g/dL (30-55) 12/20/24 16:12 RDW 13.9 % (12.1-15.1) 12/20/24 16:12 Plt Count 140 10^3/cmm (157-399) L 12/20/24 16:12 MPV 9.7 fL (7.4-10.4) 12/20/24 16:12 Neut % (Auto) 63.3 % 12/20/24 16:12 Lymph % (Auto) 19.3 % 12/20/24 16:12 [place] % (Auto) 12.8 % 12/20/24 16:12 Eos % (Auto) 3.7 % 12/20/24 16:12 Baso % (Auto) 0.7 % 12/20/24 16:12 Neut # (Auto) 2.91 10^3/uL (1.8-7.7) 12/20/24 16:12 Lymph # (Auto) 0.9 10^3/uL (0.8-4.8) 12/20/24 16:12 [place] # (Auto) 0.6 10^3/uL (0.2-0.9) 12/20/24 16:12 Eos # (Auto) 0.2 10^3/uL (0.0-0.8) 12/20/24 16:12 Baso # (Auto) 0.0 10^3/uL (0.0-0.1) 12/20/24 16:12 Nucleated RBC % (auto) 0 % 12/20/24 16:12 Nucleated RBCs # 0.0 /100WBC 12/20/24 16:12 PT 12.70 SECONDS (12.1-14.9) 12/20/24 16:12 INR 0.90 (0.8-1.2) 12/20/24 16:12 APTT 26.6 SECONDS (23.9-36.7) 12/20/24 16:12 Sodium 143 mmol/L (136-145) 12/20/24 16:12 Potassium 3.5 mmol/L (3.5-5.1) 12/20/24 16:12 Chloride 104 mmol/L (98-107) 12/20/24 16:12 Carbon Dioxide 26 mmol/L (22-29) 12/20/24 16:12 Anion Gap 16.5 (5-19) 12/20/24 16:12 BUN 19 mg/dL (8-23) 12/20/24 16:12 Creatinine 1.7 mg/dL (0.7-1.2) H 12/20/24 16:12 GFR Calculation Not Reportable 12/20/24 16:12 Glucose 71 mg/dL (65-115) 12/20/24 16:12 Calculated Osmolality 297 mOsm/kg (285-295) H 12/20/24 16:12 Lactic Acid 1.4 mmol/L (0.5-2.2) 12/20/24 16:12 Calcium 8.6 mg/dL (8.5-10.5) 12/20/24 16:12 Total Bilirubin 0.6 mg/dL (0.15-1.2) 12/20/24 16:12 AST 14 U/L (0-40) 12/20/24 16:12 ALT 11 U/L (0-41) 12/20/24 16:12 Alkaline Phosphatase 51 U/L (40-130) 12/20/24 16:12 Total Protein 6.6 g/dL (6.6-8.7) 12/20/24 16:12 Albumin 4.0 g/dL (3.5-5.2) 12/20/24 16:12 Globulin 2.6 g/dL (1.3-4.6) 12/20/24 16:12 Urine Color Yellow (Yellow) 12/20/24 16:20 Urine Appearance Clear (CLEAR) 12/20/24 16:20 Urine pH 6.5 (5-7) 12/20/24 16:20 Ur Specific [place] 1.014 (1.005-1.030) 12/20/24 16:20 Urine Protein 2+ (Negative) A 12/20/24 16:20 Urine Glucose (UA) Negative (Normal) 12/20/24 16:20 Urine Ketones Negative (Negative) 12/20/24 16:20 Urine Blood 3+ (Negative) A 12/20/24 16:20 Urine Nitrate Negative (Negative) 12/20/24 16:20 Urine Bilirubin Negative (Negative) 12/20/24 16:20 Urine Urobilinogen 1.0 mg/dL (Negative) 12/20/24 16:20 Ur Leukocyte Esterase Negative (Negative) 12/20/24 16:20 Urine RBC >100 /hpf (0-2) H 12/20/24 16:20 Urine WBC 0-5 /hpf (0-5) 12/20/24 16:20 Ur Squamous Epith Cells 0-5 /hpf (0-5) 12/20/24 16:20 Amorphous Sediment Not Reportable 12/20/24 16:20 Urine Bacteria None seen /hpf (NONE) 12/20/24 16:20 Hyaline Casts 1.21 /lpf 12/20/24 16:20 No radiology studies performed this visit Discharge Plan Discharge Patient Disposition: Home Clinical Impression: Hematuria, Dehydration Condition: Stable Prescriptions: New cefdinir 300 mg capsule 300 mg PO BID 7 Days Qty: 14 0RF No Action aspirin 81 mg tablet,delayed release (DR/EC) 81 mg PO DAILY Qty: 90 3RF atenolol 50 mg tablet See Rx Instructions .ROUTE .COMPLEX Qty: 90 3RF Dose Instruction: TAKE 1 TABLET DAILY FOR BLOOD PRESSURE Rx Instructions: TAKE 1 TABLET DAILY FOR BLOOD PRESSURE (DME) Contour Next Test Strips Strip See Rx Instructions .Route Qty: 100 3RF Rx Instructions: Test once a day. cetirizine [All Day Allergy (cetirizine)] 10 mg tablet 10 mg PO DAILY PRN (Reason: allergy/diaainess) Qty: 90 3RF ferrous sulfate 324 mg (65 mg iron) tablet,delayed release (DR/EC) 324 mg PO DAILY Qty: 90 3RF glimepiride 4 mg tablet 4 mg PO BID Qty: 180 3RF Rx Instructions: administer one tablet with breakfast and one with supper (DME) lancets [Microlet Lancet] Misc See Rx Instructions .Route Qty: 400 11RF Rx Instructions: As directed meclizine 25 mg tablet 25 mg PO .q 6 hr PRN (Reason: dizziness) Qty: 180 3RF metformin 1,000 mg tablet 1,000 mg PO BID Qty: 180 3RF metoclopramide HCl 10 mg tablet 10 mg PO BID Qty: 180 3RF pantoprazole 40 mg tablet,delayed release (DR/EC) 40 mg PO DAILY PRN (Reason: acid reflux) Qty: 90 2RF pioglitazone [Actos] 30 mg tablet 30 mg PO DAILY Qty: 90 1RF ropinirole 2 mg tablet See Rx Instructions .ROUTE .COMPLEX Qty: 90 3RF Dose Instruction: TAKE 1 TABLET AT BEDTIME Rx Instructions: TAKE 1 TABLET AT BEDTIME Januvia 100 mg tablet 100 mg PO DAILY Qty: 90 1RF tamsulosin 0.4 mg capsule See Rx Instructions .ROUTE .COMPLEX Qty: 90 3RF Dose Instruction: TAKE 1 CAPSULE DAILY Rx Instructions: TAKE 1 CAPSULE DAILY valsartan 80 mg tablet 80 mg PO DAILY Qty: 90 3RF cholecalciferol (vitamin D3) 50 mcg (2,000 unit) capsule 50 mcg PO DAILY hydrochlorothiazide 25 mg tablet 25 mg PO QAM Qty: 14 0RF nitrofurantoin monohyd/m-cryst [Macrobid] 100 mg capsule 100 mg PO Q12H 5 Days Qty: 10 0RF Rx Instructions: must administer with a meal/food (DME) motorized wheelchair See Rx Instructions .Route .MEDSUPPLY Qty: 1 0RF Rx Instructions: As directed Discharge Orders: Discharge ED (Routine); Ordered 12/20/24 Ordered By: Maria Antonia Cook Referrals: Darren Roberts [Referring, Urology] Referral Note: Please call for follow-up with urologist for possible cystoscopy with either Dr. Roberts or urologist of your choosing Homero Roman MD [Primary Care Provider, Family Practice] Discharge Diet: Usual diet Discharge Activity: Increase activity as tolerated Patient Instructions: Hematuria (ED), Opioid Safety, Pain Management Activity Restrictions/Additional Instructions: Hold your hydrochlorothiazide over the weekend. Keep your follow-up with Dr. Roman. Thank you for choosing [facility] for your healthcare needs today. You have been screened and evaluated and felt safe for discharge. Health conditions do change or evolve sometimes and as such it is important that you follow up with your Primary Doctor to be re checked, 3-5 days is a general good time frame for follow up. 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
[2024-12-20 16:25] VITALS: BP 176/76; PULSE 64; O2SAT 92
[2024-12-20 16:33] LABS: Bilirubin Urine Negative (Negative); Blood Urine 3+ (Negative); Glucose Urine UA Negative (Normal); Ketones Urine Negative (Negative); Leukocyte Esterase Urine Negative (Negative); Nitrate Urine Negative (Negative); Protein Urine 2+ (Negative); Specific Gravity, Urine 1.014 (1.005-1.030); Urine Appearance Clear (CLEAR); Urine Color Yellow (Yellow); pH Urine 6.5 (5-7)
[2024-12-20 16:36] LABS: Bacteria Urine None Seen /hpf; Hyaline Casts Urine 1.21 /lpf; RBC Urine >100 /hpf (0-2); Squamous Epithelial Cell Urine 0-5 /hpf (0-5); WBC Urine 0-5 /hpf (0-5)
[2024-12-20 16:37] LABS: Basophils % 0.7 %; Eosinophils # 0.2 10^3/uL (0.0-0.8); Eosinophils % 3.7 %; Hematocrit 29.5 % (37-53); Lymphocytes # 0.9 10^3/uL (0.8-4.8); Lymphocytes % 19.3 %; Mean Corpuscular HGB Conc 30.5 g/dL (30-55); Mean Corpuscular Hemoglobin 27.6 pg (27-33); Mean Corpuscular Volume 90.5 fl (82-101); Mean Platelet Volume 9.7 fL (7.4-10.4); Monocytes # 0.6 10^3/uL (0.2-0.9); Monocytes % 12.8 %; Neutrophils # 2.91 10^3/uL (1.8-7.7); Neutrophils % 63.3 %; Nucleated Red Blood Cells % 0 %; Platelet Count 140 10^3/cmm (157-399); Red Blood Count 3.26 10^6/uL (3.85-5.65); Red Cell Distribution Width 13.9 % (12.1-15.1)
[2024-12-20 16:44] LABS: Lactic Sepsis W/Reflex 1.4 mmol/L (0.5-2.2)
[2024-12-20 16:50] LABS: Alanine Aminotransferase 11 U/L (0-41); Alkaline Phosphatase 51 U/L (40-130); Anion Gap 16.5 (5-19); Aspartate Amino Transferase 14 U/L (0-40); Blood Urea Nitrogen 19 mg/dL (8-23); Calcium 8.6 mg/dL (8.5-10.5); Carbon Dioxide 26 mmol/L (22-29); Chloride 104 mmol/L (98-107); Globulin 2.6 g/dL (1.3-4.6); Glucose 71 mg/dL (65-115); Osmolality Calculated 297 mOsm/kg (285-295); Potassium 3.5 mmol/L (3.5-5.1); Sodium 143 mmol/L (136-145); Total Bilirubin 0.6 mg/dL (0.15-1.2); Total Protein 6.6 g/dL (6.6-8.7)
[2024-12-20 16:57] LABS: Add Urine Culture? Yes
[2024-12-20] MEDS: sodium chloride 0.9% 500 ML 999 ML IV (17:03)
[2024-12-20 17:04] LABS: Partial Thromboplastin Time 26.6 SECONDS (23.9-36.7)
[2024-12-20 17:15] VITALS: PULSE 90; O2SAT 93
[2024-12-20] MEDS: cefTRIAXone 1,000 mg SDV 1000 MG IVP (17:43)
[2024-12-20 17:58] VITALS: BP 180/91; PULSE 89; O2SAT 94
== END 2024-12-20 17:59 | disposition home or self-care (01) ==
PROVIDERS: Emergency Provider Emergency Medicine; PCP Family Medicine
DX: R31.9 Hematuria, unspecified (principal); F03.90 Unspecified dementia, unspecified severity, without behavioral disturbance, psychotic disturbance, mood disturbance, and anxiety; D64.9 Anemia, unspecified; G25.81 Restless legs syndrome; N18.30 Chronic kidney disease, stage 3 unspecified; E11.43 Type 2 diabetes mellitus with diabetic autonomic (poly)neuropathy; K31.84 Gastroparesis; E11.69 Type 2 diabetes mellitus with other specified complication; E78.5 Hyperlipidemia, unspecified; E11.22 Type 2 diabetes mellitus with diabetic chronic kidney disease; I12.9 Hypertensive chronic kidney disease with stage 1 through stage 4 chronic kidney disease, or unspecified chronic kidney disease; Z86.73 Personal history of transient ischemic attack (TIA), and cerebral infarction without residual deficits; Z79.899 Other long term (current) drug therapy; N40.0 Benign prostatic hyperplasia without lower urinary tract symptoms; Z87.891 Personal history of nicotine dependence; E86.0 Dehydration; Z79.82 Long term (current) use of aspirin; Z79.84 Long term (current) use of oral hypoglycemic drugs
CPT/HCPCS: 36415; 80053; 81001; 83605; 85025; 85610; 85730; 87040; 87086; 96361; 96374; 99284; J0696; J7040

== ENCOUNTER → 2025-01-03 10:28 | Outpatient (BNVA) | payer MEDICARE, OTHER, SELFPAY | PROVIDERS: PCP Family Medicine; Visit Provider Registered Nurse Neonatal Intensive Care | DX: R39.9 Unspecified symptoms and signs involving the genitourinary system (principal) | CPT/HCPCS: 81000 ==

== ENCOUNTER 2025-01-31 16:04 | Emergency (ER) | payer MEDICARE, OTHER, SELFPAY ==
[2025-01-31 16:05] VITALS: BP 174/84; PULSE 65; RESP 16; TEMP 36.8; O2SAT 93; BMI 31.8
--- NOTE | 2025-01-31 16:09 | XRR_ITS ---
PROCEDURE INFORMATION: Exam: XR Chest Exam date and time: 01/31/2025 4:09 PM Age: 84 years old Clinical indication: Cough and dyspnea; Additional info: Dyspnea/cough TECHNIQUE: Imaging protocol: Radiologic exam of the chest. Views: 1 view. COMPARISON: CT cervical spin wo con* [id number] 05/29/2023 1:34 PM FINDINGS: Lungs: Unremarkable. No consolidation. Pleural spaces: Unremarkable. No pleural effusion. No pneumothorax. Heart/Mediastinum: Unremarkable. No cardiomegaly. Bones/joints: Mild and moderate multilevel spondylosis. Bilateral shoulder arthritis. Otherwise, unremarkable. XR/XR chest 1V portable [id number] IMPRESSION: No acute disease.
--- NOTE | 2025-01-31 16:11 | ED_ITS ---
Documented by User: Barber Fontaine DO 02/01/25 14:16 HPI - Weakness 2 General: Chief complaint: Weakness Stated complaint: weakness Time Seen by Provider: 01/31/25 16:09 History of Present Illness: 84-year-old male presents emergency room complaint of generalized weakness for the last 2 to 3 months at times he gets very dizzy he states he is fallen multiple times including twice yesterday has been looking at getting into a prison. He denies any chest pain denies any shortness of breath has not noticed anything that exacerbates or relieves his symptoms. No vomiting. He does notice that at times when he gets up in the morning he has urgency to urinate or lose control of his urine. Denies any fever sweats or chills no recent medication changes. According to his old chart he does have some mild dementia symptoms. He has had some behavior issues related to his dementia as well. He has chronic kidney disease and is diabetic. 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 Dyslipidemia associated with type 2 diabetes mellitus GERD (gastroesophageal reflux disease) Diabetic gastroparesis Rotator cuff dysfunction Cataract HTN (hypertension) with goal to be determined Stroke Diabetes type 2, controlled Surgical History H/O shoulder surgery H/O total knee replacement Social History Smoking and tobacco/nicotine status: former use of tobacco/nicotine Alcohol intake: never Substance/Drug Use: never Physical Exam 2 Const: COMMON NORMALS: no acute distress GENERAL APPEARANCE: cooperative and comfortable ORIENTATION/CONSCIOUSNESS: Yes awake, Yes oriented to person, Yes oriented to place and Yes oriented to time HENMT: COMMON NORMALS: normocephalic, atraumatic and hearing grossly normal bilaterally HEAD & SCALP: normocephalic and atraumatic Resp: COMMON NORMALS: normal respiratory effort, No retractions, No use of accessory muscles and clear to auscultation bilaterally AUSCULTATION: clear to auscultation bilaterally Cardio: COMMON NORMALS: regular rate, regular rhythm and No murmurs present (Cardio) RATE: regular rate RHYTHM: regular rhythm GI: COMMON NORMALS: Soft to palpation and No hepatosplenomegaly present A USCULTATION: Yes normoactive bowel sounds PALPATION: Yes Soft to palpation, No Tenderness to palpation present (GI), No Guarding due to palpation present (GI) and Yes No hepatosplenomegaly present Extremity: COMMON NORMALS: normal to inspection, capillary refill normal, no clubbing, cyanosis or edema, no calf tenderness and no pedal edema Neuro: SENSORIUM/ORIENTATION: Yes oriented to person, Yes oriented to place and Yes oriented to time Skin: COMMON NORMALS: no rashes or lesions noted GENERAL SKIN EXAM: no rashes or lesions noted Course 2 Vital Signs: Vital signs: Vital Signs Temperature 98.2 F 01/31/25 16:05 Pulse Rate 68 01/31/25 20:06 Respiratory Rate 16 01/31/25 16:05 Blood Pressure 191/96 01/31/25 20:06 Pulse Oximetry 94 01/31/25 20:06 Oxygen Delivery Me thod Room Air 01/31/25 19:00 MDM - Weakness Medical Decision Making Care signed out to Dr. Verduzco at change of shift. See final notes for diagnosis and disposition. Patient with generalized weakness. This been ongoing for several months. He has chronic anemia and chronic renal insufficiency. None of his workup today shows anything of acute changes or concerning abnormalities that would require admission or emergent evaluation or treatment. Discussed with patient the findings. They are trying to get into a prison and I recommend they continue following up with her primary care physician to facilitate this. Lab Data 01/31/25 17:24 01/31/25 17:24 Radiology Impressions Chest X-Ray 01/31/25 16:09 IMPRESSION: No acute disease. Head CT 01/31/25 16:31 IMPRESSION: 1. No acute intracranial findings. 2. Additional details as above. Laboratory Results WBC 4.42 10^3/uL (3.29-11.43) 01/31/25 17: RBC 3.32 10^6/uL (3.85-5.65) L 01/31/25 17:24 Hgb 9.20 g/dL (11.27-16.99) L 01/31/25 17:24 Hct 30.0 % (37-53) L 01/31/25 17: MCV 90.4 fl (82-101) 01/31/25 17:24 MCH 27.7 pg (27-33) 01/31/25 17: MCHC 30.7 g/dL (30-55) 01/31/25 17: RDW 14.3 % (12.1-15.1) 01/31/25 17: Plt Count 131 10^3/cmm (157-399) L 01/31/25 17: MPV 10.3 fL (7.4-10.4) 01/31/25 17: Neut % (Auto) 53.6 % 01/31/25 17:24 Lymph % (Auto) 28.5 % 01/31/25 17:24 [place] % (Auto) 12.4 % 01/31/25 17: Eos % (Auto) 4.1 % 01/31/25: Baso % (Auto) 0.9 % 01/31/25: Neut # (Auto) 2.37 10^3/uL (1.8-7.7) 01/31/25 17:24 Lymph # (Auto) 1.3 10^3/uL (0.8-4.8) 01/31/25 17:24 [place] # (Auto) 0.6 10^3/uL (0.2-0.9) 01/31/25 17: Eos # (Auto) 0.2 10^3/uL (0.0-0.8) 01/31/25 17:24 Baso # (Auto) 0.0 10^3/uL (0.0-0.1) 01/31/25 17:24 Nucleated RBC % (auto) 0 % 01/31/25 17: Nucleated RBCs # 0.0 /100WBC 01/31/25 17:24 Sodium 141 mmol/L (136-145) 01/31/25 17:24 Potassium 4.0 mmol/L (3.5-5.1) 01/31/25 17:24 Chloride 104 mmol/L (98-107) 01/31/25 17:24 Carbon Dioxide 24 mmol/L (22-29) 01/31/25 17:24 Anion Gap 17.0 (5-19) 01/31/25 17:24 BUN 26 mg/dL (8-23) H 01/31/25 17:24 Creatinine 1.6 mg/dL (0.7-1.2) H 01/31/25 17:24 GFR Calculation Not Reportable 01/31/25 17:24 Glucose 143 mg/dL (65-115) H 01/31/25 17:24 Calculated Osmolality 299 mOsm/kg (285-295) H 01/31/25 17:24 Calcium 9.2 mg/dL (8.5-10.5) 01/31/25 17:24 Total Bilirubin 0.4 mg/dL (0.15-1.2) 01/31/25 17:24 AST 17 U/L (0-40) 01/31/25 17:24 ALT 10 U/L (0-41) 01/31/25 17:24 Alkaline Phosphatase 49 U/L (40-130) 01/31/25 17:24 Creatine Kinase 194 U/L (39-308) 01/31/25 17:24 Total Protein 6.2 g/dL (6.6-8.7) L 01/31/25 17:24 Albumin 3.9 g/dL (3.5-5.2) 01/31/25 17:24 Globulin 2.3 g/dL (1.3-4.6) 01/31/25 17:24 Lipase 21 U/L (13-60) 01/31/25 17:24 Urine Color Yellow (Yellow) 01/31/25 17:00 Urine Appearance Clear (CLEAR) 01/31/25 17:00 Urine pH 5.0 (5-7) 01/31/25 17:00 Ur Specific [place] 1.019 (1.005-1.030) 01/31/25 17:00 Urine Protein 2+ (Negative) A 01/31/25 17:00 Urine Glucose (UA) Negative (Normal) 01/31/25 17:00 Urine Ketones Trace (Negative) 01/31/25 17:00 Urine Blood Negative (Negative) 01/31/25 17:00 Urine Nitrate Negative (Negative) 01/31/25 17:00 Urine Bilirubin Negative (Negative) 01/31/25 17:00 Urine Urobilinogen 0.2 mg/dL (Negative) 01/31/25 17:00 Ur Leukocyte Esterase Negative (Negative) 01/31/25 17:00 Urine RBC 0-2 /hpf (0-2) 01/31/25 17:00 Urine WBC 0-5 /hpf (0-5) 01/31/25 17:00 Ur Squamous Epith Cells 0-5 /hpf (0-5) 01/31/25 17:00 Amorphous Sediment Not Reportable 01/31/25 17:00 Urine Bacteria None seen /hpf (NONE) 01/31/25 17:00 Hyaline Casts 0.40 /lpf 01/31/25 17:00 Discharge Plan Discharge Patient Disposition: Home Clinical Impression: Generalized weakness Condition: Stable Prescriptions: No Action aspirin 81 mg tablet,delayed release (DR/EC) 81 mg PO DAILY Qty: 90 3RF atenolol 50 mg tablet See Rx Instructions .ROUTE .COMPLEX Qty: 90 3RF Dose Instruction: TAKE 1 TABLET DAILY FOR BLOOD PRESSURE Rx Instructions: TAKE 1 TABLET DAILY FOR BLOOD PRESSURE (DME) Contour Next Test Strips Strip See Rx Instructions .Route Qty: 100 3RF Rx Instructions: Test once a day. cetirizine [All Day Allergy (cetirizine)] 10 mg tablet 10 mg PO DAILY PRN (Reason: allergy/diaainess) Qty: 90 3RF ferrous sulfate 324 mg (65 mg iron) tablet,delayed release (DR/EC) 324 mg PO DAILY Qty: 90 3RF glimepiride 4 mg tablet 4 mg PO BID Qty: 180 3RF Rx Instructions: administer one tablet with breakfast and one with supper (DME) lancets [Microlet Lancet] Misc See Rx Instructions .Route Qty: 400 11RF Rx Instructions: As directed meclizine 25 mg tablet 25 mg PO .q 6 hr PRN (Reason: dizziness) Qty: 180 3RF metformin 1,000 mg tablet 1,000 mg PO BID Qty: 180 3RF metoclopramide HCl 10 mg tablet 10 mg PO BID Qty: 180 3RF pantoprazole 40 mg tablet,delayed release (DR/EC) 40 mg PO DAILY PRN (Reason: acid reflux) Qty: 90 2RF pioglitazone [Actos] 30 mg tablet 30 mg PO DAILY Qty: 90 1RF ropinirole 2 mg tablet See Rx Instructions .ROUTE .COMPLEX Qty: 90 3RF Dose Instruction: TAKE 1 TABLET AT BEDTIME Rx Instructions: TAKE 1 TABLET AT BEDTIME Januvia 100 mg tablet 100 mg PO DAILY Qty: 90 1RF tamsulosin 0.4 mg capsule See Rx Instructions .ROUTE .COMPLEX Qty: 90 3RF Dose Instruction: TAKE 1 CAPSULE DAILY Rx Instructions: TAKE 1 CAPSULE DAILY valsartan 80 mg tablet 80 mg PO DAILY Qty: 90 3RF cholecalciferol (vitamin D3) 50 mcg (2,000 unit) capsule 50 mcg PO DAILY (DME) motorized wheelchair See Rx Instructions .Route .MEDSUPPLY Qty: 1 0RF Rx Instructions: As directed hydrochlorothiazide 25 mg tablet 25 mg PO QAM Qty: 14 0RF Discharge Orders: Discharge ED (Routine); Ordered 01/31/25 Ordered By: Felipe Verduzco Referrals: Homero Roman MD [Primary Care Provider, Family Practice] Discharge Diet: Advance as tolerated Patient Instructions: Opioid Safety, Pain Management, Patient Portal & [place] Instructions Print Language: Citizen Of [place] Coding Level of Care Code ED Cell Operation Supervisor for Chg Fwd Related Data Home Medications ?Medication ?Instructions ?Recorded ?Confirmed cholecalciferol (vitamin D3) 50 50 mcg PO DAILY 01/03/25 mcg (2,000 unit) capsule Previous Rx's ?Medication ?Instructions ?Recorded motorized wheelchair #1 ea 10/25/22 aspirin 81 mg tablet,delayed 81 mg PO DAILY circulatio n #90 tabs 11/08/24 release atenolol 50 mg tablet See Rx Instructions .Route 0 11/08/24 .COMPLEX #90 tabs blood sugar diagnostic (Contour #100 ea 11/08/24 Next Test Strips) cetirizine 10 mg tablet (All Day 10 mg PO DAILY PRN Allergy (cetirizine)) allergy/diaainess #90 tabs ferrous sulfate 324 mg (65 mg 324 mg PO DAILY anemia # 90 tabs 11/08/24 iron) tablet,delayed release glimepiride 4 mg tablet 4 mg PO BID diabetes #180 ta bs 11/08/24 lancets (Microlet Lancet) #400 ea 11/08/24 meclizine 25 mg tablet 25 mg PO .q 6 hr PRN dizzine ss 11/08/24 #180 tabs metformin 1,000 mg tablet 1,000 mg PO BID diabetes #18 0 tabs 11/08/24 metoclopramide HCl 10 mg tablet 10 mg PO BID gastropar esis #180 11/08/24 tabs pantoprazole 40 mg tablet,delayed 40 mg PO DAILY PRN a anila reflux #90 11/08/24 release tabs pioglitazone 30 mg tablet (Actos) 30 mg PO DAILY diabe judy #90 tabs 11/08/24 ropinirole 2 mg tablet See Rx Instructions .Route 0 11/08/24 .COMPLEX #90 tabs sitagliptin phosphate 100 mg 100 mg PO DAILY diabetes #90 tabs 11/08/24 tablet (Januvia) tamsulosin 0.4 mg capsule See Rx Instructions .Route 0 11/08/24 .COMPLEX #90 caps valsartan 80 mg tablet 80 mg PO DAILY blood pressur e and 11/08/24 kidney protection #90 tabs hydrochlorothiazide 25 mg tablet 25 mg PO QAM #14 tabs 01/10/25 Allergies Allergy/AdvReac Type Severity Reaction Status Date / Time No Known Allergies Allergy Verified 01/03/25 10:18 Documented by User: Felipe Verduzco MD 01/31/25 19:43 HPI - Weakness 2 General: Chief complaint: Weakness Stated complaint: weakness Time Seen by Provider: 01/31/25 16:09 PFSH ED 2 PFSH: Medical History Debilitated patient Health counseling Orthostatic dizziness Behavior related to cognitive impairment Anemia Pancytopenia Restless legs syndrome (RLS) CKD stage 3 due to type 2 diabetes mellitus BPH loc w urin obs/LUTS Dyslipidemia associated with type 2 diabetes mellitus GERD (gastroesophageal reflux disease) Diabetic gastroparesis Rotator cuff dysfunction Cataract HTN (hypertension) with goal to be determined Stroke Diabetes type 2, controlled Surgical History H/O shoulder surgery H/O total knee replacement Social History Smoking and tobacco/nicotine status: former use of tobacco/nicotine Alcohol intake: never Substance/Drug Use: never Course 2 Vital Signs: Vital signs: Vital Signs Temperature 98.2 F 01/31/25 16:05 Pulse Rate 68 01/31/25 20:06 Respiratory Rate 16 01/31/25 16:05 Blood Pressure 191/96 01/31/25 20:06 Pulse Oximetry 94 01/31/25 20:06 Oxygen Delivery Me thod Room Air 01/31/25 19:00 MDM - Weakness Medical Decision Making Patient with generalized weakness. This been ongoing for several months. He has chronic anemia and chronic renal insufficiency. None of his workup today shows anything of acute changes or concerning abnormalities that would require admission or emergent evaluation or treatment. Discussed with patient the findings. They are trying to get into a prison and I recommend they continue following up with her primary care physician to facilitate this. Lab Data 01/31/25 17:24 01/31/25 17:24 Radiology Impressions Chest X-Ray 01/31/25 16:09 IMPRESSION: No acute disease. Head CT 01/31/25 16:31 IMPRESSION: 1. No acute intracranial findings. 2. Additional details as above. Laboratory Results WBC 4.42 10^3/uL (3.29-11.43) 01/31/25 17:24 RBC 3.32 10^6/uL (3.85-5.65) L 01/31/25 17:24 Hgb 9.20 g/dL (11.27-16.99) L 01/31/25 17:24 Hct 30.0 % (37-53) L 01/31/25 17:24 MCV 90.4 fl (82-101) 01/31/25 17:24 MCH 27.7 pg (27-33) 01/31/25 17:24 MCHC 30.7 g/dL (30-55) 01/31/25 17:24 RDW 14.3 % (12.1-15.1) 01/31/25 17:24 Plt Count 131 10^3/cmm (157-399) L 01/31/25 17:24 MPV 10.3 fL (7.4-10.4) 01/31/25 17:24 Neut % (Auto) 53.6 % 01/31/25 17:24 Lymph % (Auto) 28.5 % 01/31/25 17:24 [place] % (Auto) 12.4 % 01/31/25 17:24 Eos % (Auto) 4.1 % 01/31/25 17:24 Baso % (Auto) 0.9 % 01/31/25 17:24 Neut # (Auto) 2.37 10^3/uL (1.8-7.7) 01/31/25 17:24 Lymph # (Auto) 1.3 10^3/uL (0.8-4.8) 01/31/25 17:24 [place] # (Auto) 0.6 10^3/uL (0.2-0.9) 01/31/25 17:24 Eos # (Auto) 0.2 10^3/uL (0.0-0.8) 01/31/25 17:24 Baso # (Auto) 0.0 10^3/uL (0.0-0.1) 01/31/25 17:24 Nucleated RBC % (auto) 0 % 01/31/25 17:24 Nucleated RBCs # 0.0 /100WBC 01/31/25 17:24 Sodium 141 mmol/L (136-145) 01/31/25 17:24 Potassium 4.0 mmol/L (3.5-5.1) 01/31/25 17:24 Chloride 104 mmol/L (98-107) 01/31/25 17:24 Carbon Dioxide 24 mmol/L (22-29) 01/31/25 17:24 Anion Gap 17.0 (5-19) 01/31/25 17:24 BUN 26 mg/dL (8-23) H 01/31/25 17:24 Creatinine 1.6 mg/dL (0.7-1.2) H 01/31/25 17:24 GFR Calculation Not Reportable 01/31/25 17:24 Glucose 143 mg/dL (65-115) H 01/31/25 17:24 Calculated Osmolality 299 mOsm/kg (285-295) H 01/31/25 17:24 Calcium 9.2 mg/dL (8.5-10.5) 01/31/25 17:24 Total Bilirubin 0.4 mg/dL (0.15-1.2) 01/31/25 17:24 AST 17 U/L (0-40) 01/31/25 17:24 ALT 10 U/L (0-41) 01/31/25 17:24 Alkaline Phosphatase 49 U/L (40-130) 01/31/25 17:24 Creatine Kinase 194 U/L (39-308) 01/31/25 17:24 Total Protein 6.2 g/dL (6.6-8.7) L 01/31/25 17:24 Albumin 3.9 g/dL (3.5-5.2) 01/31/25 17:24 Globulin 2.3 g/dL (1.3-4.6) 01/31/25 17:24 Lipase 21 U/L (13-60) 01/31/25 17:24 Urine Color Yellow (Yellow) 01/31/25 17:00 Urine Appearance Clear (CLEAR) 01/31/25 17:00 Urine pH 5.0 (5-7) 01/31/25 17:00 Ur Specific [place] 1.019 (1.005-1.030) 01/31/25 17:00 Urine Protein 2+ (Negative) A 01/31/25 17:00 Urine Glucose (UA) Negative (Normal) 01/31/25 17:00 Urine Ketones Trace (Negative) 01/31/25 17:00 Urine Blood Negative (Negative) 01/31/25 17:00 Urine Nitrate Negative (Negative) 01/31/25 17:00 Urine Bilirubin Negative (Negative) 01/31/25 17:00 Urine Urobilinogen 0.2 mg/dL (Negative) 01/31/25 17:00 Ur Leukocyte Esterase Negative (Negative) 01/31/25 17:00 Urine RBC 0-2 /hpf (0-2) 01/31/25 17:00 Urine WBC 0-5 /hpf (0-5) 01/31/25 17:00 Ur Squamous Epith Cells 0-5 /hpf (0-5) 01/31/25 17:00 Amorphous Sediment Not Reportable 01/31/25 17:00 Urine Bacteria None seen /hpf (NONE) 01/31/25 17:00 Hyaline Casts 0.40 /lpf 01/31/25 17:00 All radiology interpretation(s) finalized by discharge Discharge Plan Discharge Patient Disposition: Home Clinical Impression: Generalized weakness Condition: Stable Prescriptions: No Action aspirin 81 mg tablet,delayed release (DR/EC) 81 mg PO DAILY Qty: 90 3RF atenolol 50 mg tablet See Rx Instructions .ROUTE .COMPLEX Qty: 90 3RF Dose Instruction: TAKE 1 TABLET DAILY FOR BLOOD PRESSURE Rx Instructions: TAKE 1 TABLET DAILY FOR BLOOD PRESSURE (DME) Contour Next Test Strips Strip See Rx Instructions .Route Qty: 100 3RF Rx Instructions: Test once a day. cetirizine [All Day Allergy (cetirizine)] 10 mg tablet 10 mg PO DAILY PRN (Reason: allergy/diaainess) Qty: 90 3RF ferrous sulfate 324 mg (65 mg iron) tablet,delayed release (DR/EC) 324 mg PO DAILY Qty: 90 3RF glimepiride 4 mg tablet 4 mg PO BID Qty: 180 3RF Rx Instructions: administer one tablet with breakfast and one with supper (DME) lancets [Microlet Lancet] Misc See Rx Instructions .Route Qty: 400 11RF Rx Instructions: As directed meclizine 25 mg tablet 25 mg PO .q 6 hr PRN (Reason: dizziness) Qty: 180 3RF metformin 1,000 mg tablet 1,000 mg PO BID Qty: 180 3RF metoclopramide HCl 10 mg tablet 10 mg PO BID Qty: 180 3RF pantoprazole 40 mg tablet,delayed release (DR/EC) 40 mg PO DAILY PRN (Reason: acid reflux) Qty: 90 2RF pioglitazone [Actos] 30 mg tablet 30 mg PO DAILY Qty: 90 1RF ropinirole 2 mg tablet See Rx Instructions .ROUTE .COMPLEX Qty: 90 3RF Dose Instruction: TAKE 1 TABLET AT BEDTIME Rx Instructions: TAKE 1 TABLET AT BEDTIME Januvia 100 mg tablet 100 mg PO DAILY Qty: 90 1RF tamsulosin 0.4 mg capsule See Rx Instructions .ROUTE .COMPLEX Qty: 90 3RF Dose Instruction: TAKE 1 CAPSULE DAILY Rx Instructions: TAKE 1 CAPSULE DAILY valsartan 80 mg tablet 80 mg PO DAILY Qty: 90 3RF cholecalciferol (vitamin D3) 50 mcg (2,000 unit) capsule 50 mcg PO DAILY (DME) motorized wheelchair See Rx Instructions .Route .MEDSUPPLY Qty: 1 0RF Rx Instructions: As directed hydrochlorothiazide 25 mg tablet 25 mg PO QAM Qty: 14 0RF Discharge Orders: Discharge ED (Routine); Ordered 01/31/25 Ordered By: Felipe Verduzco Referrals: Homero Roman MD [Primary Care Provider, [facility]] Discharge Diet: Advance as tolerated Patient Instructions: Opioid Safety, Pain Management, Patient Portal & [place] Instructions Print Language: Citizen Of [place] Coding Level of Care Code ED Cell Operation Supervisor for Chg Fwd Related Data Home Medications ?Medication ?Instructions ?Recorded ?Confirmed cholecalciferol (vitamin D3) 50 50 mcg PO DAILY 01/03/25 mcg (2,000 unit) capsule Previous Rx's ?Medication ?Instructions ?Recorded motorized wheelchair #1 ea 10/25/22 aspirin 81 mg tablet,delayed 81 mg PO DAILY circulatio n #90 tabs 11/08/24 release atenolol 50 mg tablet See Rx Instructions .Route 0 11/08/24 .COMPLEX #90 tabs blood sugar diagnostic (Contour #100 ea 11/08/24 Next Test Strips) cetirizine 10 mg tablet (All Day 10 mg PO DAILY PRN Allergy (cetirizine)) allergy/diaainess #90 tabs ferrous sulfate 324 mg (65 mg 324 mg PO DAILY anemia # 90 tabs 11/08/24 iron) tablet,delayed release glimepiride 4 mg tablet 4 mg PO BID diabetes #180 ta bs 11/08/24 lancets (Microlet Lancet) #400 ea 11/08/24 meclizine 25 mg tablet 25 mg PO .q 6 hr PRN dizzine ss 11/08/24 #180 tabs metformin 1,000 mg tablet 1,000 mg PO BID diabetes #18 0 tabs 11/08/24 metoclopramide HCl 10 mg tablet 10 mg PO BID gastropar esis #180 11/08/24 tabs pantoprazole 40 mg tablet,delayed 40 mg PO DAILY PRN a anila reflux #90 11/08/24 release tabs pioglitazone 30 mg tablet (Actos) 30 mg PO DAILY diabe judy #90 tabs 11/08/24 ropinirole 2 mg tablet See Rx Instructions .Route 0 11/08/24 .COMPLEX #90 tabs sitagliptin phosphate 100 mg 100 mg PO DAILY diabetes #90 tabs 11/08/24 tablet (Januvia) tamsulosin 0.4 mg capsule See Rx Instructions .Route 0 11/08/24 .COMPLEX #90 caps valsartan 80 mg tablet 80 mg PO DAILY blood pressur e and 11/08/24 kidney protection #90 tabs hydrochlorothiazide 25 mg tablet 25 mg PO QAM #14 tabs 01/10/25 Allergies Allergy/AdvReac Type Severity Reaction Status Date / Time No Known Allergies Allergy Verified 01/03/25 10:18
--- OUTSIDE RECORDS SUMMARY | 2025-01-31 16:12 | XMS_ITS | Patient Health Record ---
Author Organization [facility] Address [address] [place] [address] Care Team Providers Care Scientific Programmer Analyst Name Role Phone Jesus Sarmiento Primary Care Provider Vivian Henao [phone] Allergies Allergen (clinical drug ingredient) Drug/Non Drug Allergy documented on EMR Reaction Allergy Type Onset Date Status No Known Drug Allergy Unknown Drug Allergy Active Reason For Referral No Information Medications Medication SIG (Take, Route, Frequency, Duration) Notes Start Date End Date Status Terazosin HCl 10 MG 1 tablet at bedtime Orally Once a day for 90 days Active Reglan 10 MG 1 tablet as directed Orally once for 1 day 06/13/2022 Active Vitamin D3 50 MCG (1999 UT) 1 tablet Orally Once a day Active Reglan 10 MG 1 tablet before meals Orally once a day for 1 day 08/05/2022 Active Atenolol 50 MG 1 tablet Orally Once a day for 90 days Active Reglan 10 MG as directed Orally one time for 1 day 09/19/2022 Active Ferrous Sulfate 325 MG as directed orally Once a day for 90 days Active Stool Softener 100 MG 1 capsule as needed Orally Once a day Active Triamcinolone Acetonide 0.1 % APPLY DAILY TO SKIN TO AFFECTED AREA TWICE A DAY FOR 2 WEEKS for 30 Active Claritin 10 MG 1 tablet Orally Once a day Active Valsartan 80 MG 1 tablet twice a day for 90 Active metFORMIN HCl 1000 MG 1 tablet with a meal Orally BID for 30 day(s) Active Tamsulosin HCl 0.4 MG TAKE 1 CAPSULE BY MOUTH EVERY DAY FOR 30 DAYS for 90 Active Aspirin 81 81 MG 1 tablet Orally Once a day for 30 day(s) 08/04/2020 Active Pravastatin Sodium 80 MG TAKE 1 TABLET BY MOUTH EVERY DAY for 90 Active Pantoprazole Sodium 40 MG 1 tablet Orally Once a day for 90 days Active Glimepiride 2 MG 1 tablet with breakfast or the first main meal of the day Orally Once a day for 90 days Decrease from BID to daily due to patients concerns for hypoglycemic episodes 11/12/2020 Active Vitamin B12 500 MCG 1 tablet Orally Once a day Active Tylenol 8 Hour Arthritis Pain 650 MG 1 tablet Orally as needed Active traMADol HCl 50 MG 1 tablet as needed Orally bid for 30 days 08/03/2021 Active Immunizations Vaccine Route Administration Date Status Comme nts COVID-19 Vaccine (Moderna) Dose #2 Unknown 09/25/2020 Administered COVID-19 Vaccine (Pfizer) Dose #1 Unknown 08/28/2020 Administered Flucelvax IM Intramuscular 05/25/2021 Administered Influenza (whole), CPT 82741 Inactive Unknown 04/30/2017 Administered Influenza (whole), CPT 71289 Inactive Unknown 04/30/2018 Administered Pneumococcal polysaccharide PPV23 Unknown 2017 Administered Social History Tobacco Use: Social History Observation Description Date Details (start date - stop date) Former Smoker NA - NA Household Question Answer Notes Marital status: Level of education: finished high school Retired xTobacco Use/Smoking Question Answer Notes Are you a former smoker Alcohol Screen (Audit-C) Question Answer Notes Did you have a drink contain ing alcohol in the past year? Yes How often did you have a dri nk containing alcohol in the past year? Monthly or less (1 point) How many drinks did you have on a typical day when you were drinking in the past year? 1 or 2 drinks (0 point) How often did you have 6 or more drinks on one occasion in the past year? Never (0 point) Points 1 Interpretation Negative Problems Problem Type SNOMED Code ICD Code Onset Dates Problem Status W/U Status Risk Notes Problem Nocturia (738548045) Nocturia (R35.1) Active confirmed Problem 717134333566318 Benign prostatic hyperplasia with lower urinary tract symptoms (N40.1) Active confirmed Problem 36941913 Essential hypertension (I10) Active confirmed Problem 087571130 Gastroesophageal reflux disease without esophagitis (K21.9) Active confirmed Problem 77553006 Iron deficiency anemia, unspecified iron deficiency anemia type (D50.9) Active confirmed Problem 075990202 Osteoarthritis, unspecified osteoarthritis type, unspecified site (M19.90) Active confirmed Problem 525279733 Uncontrolled typ e 2 diabetes mellitus with hyperglycemia (E11.65) Active confirmed Problem Hyperlipidaemia (68944940) Hyperlipidemia, unspecified hyperlipidemia type (E78.5) Active confirmed Problem History of malignant neoplasm of prostate (163316621) Hx of malignant neoplasm of prostate (Z85.46) Active confirmed Problem Constipation (88629200) Constipation (K59.00) Active confirmed Problem 149631633 Thrombocytopenia (D69.6) Active confirmed Problem 95144577 Pharyngoesophage al dysphagia (R13.14) Active confirmed Problem 436215046 OAB (overactive bladder) (N32.81) Active confirmed Problem History of malignant neoplasm of prostate (873522294) History of prostate cancer (Z85.46) Active confirmed Problem 571793976 History of adenomatous polyp of colon (Z86.010) Active confirmed Problem History of radiation therapy (324621235) History of radiation therapy (Z92.3) Active confirmed Problem Chronic kidney disease stage 3A (disorder) (883954925) Stage 3a chronic kidney disease (CKD) (N18.31) Active confirmed Problem 727893263 Controlled type 2 diabetes mellitus without complication, without long-term current use of insulin (E11.9) Inactive confirmed Problem 516893573 Prostate cancer (C61) Inactive confirmed Plan Of Treatment No Information Insurance Providers Payer Name Payer Address Payer Phone Subscriber Number Group Number Insured Name Patient Relationship to Insured Coverage Start Date Coverage End Date [place] Medicare [address] [place] [phone] [id number] Rufus Gonsalez Self - patient is the insured [facility] Insurance [address] [address] [place]RIANNA GARCES [phone] [id number] Rufus Gonsalez Self - patient is the insured Medical (General) History Medical History History ICD Code Prostate cancer C61 Iron deficiency anemia D50.9 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
--- NOTE | 2025-01-31 16:24 | ECG_ITS ---
[facility] [place] Test Date: 2025-01-31 Pat Name: Rufus Gonsalez Department: Room: Gender: Male Armed Guard: : 1940 Requested By: Barber Reece Order Number: [id number] Reading MD: MARIA D ROYAL Measurements Intervals [place] Rate: 62 P: -77 MS: 178 QRS: 2 QRSD: 94 T: 1 QT: 407 QTc: 414 Interpretive Statements SINUS RHYTHM No previous ECG available for comparison Electronically Signed On 02-04-2025 21:34:36 CDT by MARIA D ROYAL [email or web address]
--- NOTE | 2025-01-31 16:31 | CTR_ITS ---
PROCEDURE INFORMATION: Exam: CT Head Without Contrast Exam date and time: 01/31/2025 4:45 PM Age: 84 years old Clinical indication: Injury or trauma; Fall; Blunt trauma (contusions or hematomas); Consciousness not specified; Additional info: Vertigo frequent falls TECHNIQUE: Imaging protocol: Computed tomography of the head without contrast. Radiation optimization: All CT scans at this facility use at least one of these dose optimization techniques: automated exposure control; mA and/or kV adjustment per patient size (includes targeted exams where dose is matched to clinical indication); or iterative reconstruction. COMPARISON: CT head wo con* [id number] 05/29/2023 1:34 PM RADIATION DOSE METRICS: Total DLP (mGy-cm): 1123.98 FINDINGS: Brain: Mild, diffuse atrophy of the brain.There is ill-defined, fairly symmetric low-density within the cerebral deep white matter bilaterally which is likely the sequela of chronic ischemic change due to small vessel disease. Chronic infarct left cerebellum. No CT evidence of mass effect, intracranial hemorrhage, or acute infarct. Cerebral ventricles: Prominent ventricles due to the atrophy. Otherwise, unremarkable. Paranasal sinuses: Moderate bilateral sinusitis. Mastoid air cells: Visualized mastoid air cells are well aerated. Auditory system: Clear middle ear cavities bilaterally. Bones: Unremarkable. No acute fracture. Soft tissues: Otherwise, unremarkable. CT/CT head wo con* [id number] IMPRESSION: 1. No acute intracranial findings. 2. Additional details as above.
[2025-01-31 17:06] VITALS: BP 177/93; PULSE 62; O2SAT 93
[2025-01-31 17:14] LABS: Glucose Urine UA Negative (Normal); Nitrate Urine Negative (Negative); Specific Gravity, Urine 1.019 (1.005-1.030)
[2025-01-31 17:16] LABS: Add Urine Microscopic? YES
[2025-01-31 17:30] VITALS: BP 179/94; PULSE 61; O2SAT 97
[2025-01-31 17:54] LABS: Hematocrit 30.0 % (37-53); Hemoglobin 9.20 g/dL (11.27-16.99); Mean Corpuscular HGB Conc 30.7 g/dL (30-55); Mean Corpuscular Hemoglobin 27.7 pg (27-33); Mean Corpuscular Volume 90.4 fl (82-101); Nucleated Red Blood Cells % 0 %; Platelet Count 131 10^3/cmm (157-399); Red Blood Count 3.32 10^6/uL (3.85-5.65); White Blood Count 4.42 10^3/uL (3.29-11.43)
[2025-01-31 18:15] LABS: Alanine Aminotransferase 10 U/L (0-41); Albumin Level 3.9 g/dL (3.5-5.2); Alkaline Phosphatase 49 U/L (40-130); Anion Gap 17.0 (5-19); Aspartate Amino Transferase 17 U/L (0-40); Blood Urea Nitrogen 26 mg/dL (8-23); Calcium 9.2 mg/dL (8.5-10.5); Carbon Dioxide 24 mmol/L (22-29); Chloride 104 mmol/L (98-107); Creatinine Clr Calc Pharmacy 42.5857; Globulin 2.3 g/dL (1.3-4.6); Glucose 143 mg/dL (65-115); Lipase 21 U/L (13-60); Osmolality Calculated 299 mOsm/kg (285-295); Potassium 4.0 mmol/L (3.5-5.1); Sodium 141 mmol/L (136-145); Total Protein 6.2 g/dL (6.6-8.7)
[2025-01-31 18:30] VITALS: BP 191/96; PULSE 60; O2SAT 93
--- NOTE | 2025-01-31 18:58 | ECG_ITS ---
[facility]: 2025-01-31 Pat Name: Rufus Gonsalez Department: Room: Gender: Male Produce Department Manager: : 1940 Requested By: Barber Reece Order Number: [id number] Reading MD: Measurements Intervals [place] Rate: 58 P: -64 CO: 197 QRS: 1 QRSD: 85 T: -2 QT: 425 QTc: 417 Interpretive Statements SINUS BRADYCARDIA WITH OCCASIONAL VENTRICULAR PREMATURE COMPLEXES MINIMAL ST DEPRESSION [0.025+ mV ST DEPRESSION] Compared to ECG 01/31/2025 16:24:56 Ventricular premature complex(es) now present ST (T wave) deviation now present Sinus rhythm no longer present [email or web address]
[2025-01-31 19:00] VITALS: PULSE 58; O2SAT 94
[2025-01-31 20:06] VITALS: BP 191/96; PULSE 68; O2SAT 94
== END 2025-01-31 20:07 | disposition home or self-care (01) ==
PROVIDERS: Family Medicine; Emergency Provider Emergency Medicine; PCP Family Medicine
DX: R53.1 Weakness (principal); Z79.82 Long term (current) use of aspirin; Z79.84 Long term (current) use of oral hypoglycemic drugs; Z87.891 Personal history of nicotine dependence; E78.5 Hyperlipidemia, unspecified; E11.22 Type 2 diabetes mellitus with diabetic chronic kidney disease; I12.9 Hypertensive chronic kidney disease with stage 1 through stage 4 chronic kidney disease, or unspecified chronic kidney disease; N18.30 Chronic kidney disease, stage 3 unspecified
CPT/HCPCS: 36415; 51798; 70450; 71045; 80053; 81001; 82550; 83690; 85025; 93005; 93010; 99285

== ENCOUNTER 2025-07-10 04:47 | Emergency (ER) | payer MEDICARE, OTHER, SELFPAY ==
--- OUTSIDE RECORDS SUMMARY | 2025-03-19 11:00 | XMS_ITS ---
Author Organization [employer] Address [address] [place] [address] Care Team Providers Care Cable Television Program Director Name Role Phone Jesus Sarmiento Primary Care Provider DONNA Louise [phone] REASON FOR VISIT cysto w/ psa/ct Encounters Encounter Location Date Provider Diagnosis [facility] [address] [place] [facility] [place] [address] 03/19/2025 DONNA SERNA Plan Of Treatment No Information Progress Notes * Rufus BARON LDOB:1940 ( 85 yo M)Acc No.[id number]:03/19/2025 Patient: Rufus ALVAREZ Provider: Duarte Serna MD :1940 A ge:84 Y S ex:Male Date:03/19/2025 Address:[address] [place], [place] [address] Pcp:Jesus Sarmiento Subjective: * Chief Complaints: * 1 . Cysto w/ psa/ct. * Medical History: Objective: * Vitals: Assessment: Plan: * Treatment: * Billing Information: * Visit Code: * Procedure Codes: * Electronic signature of JONATHAN SERNA MD on 07/10/2025 at 04:59 AM FINANCIAL SERVICES ASSOCIATE Sign off status: Pending * Provider: Duarte Serna MD Date: 0 03/19/2025 Generated for Joy wang/Ottoniel/eTransmitting on: 1 09/10/2024 04:59 AM FINANCIAL SERVICES ASSOCIATE
[2025-07-10] VITALS (17 sets, daily range): BP systolic 110–138; BP diastolic 54–80; PULSE 58–63; RESP 16; TEMP 36.9; O2SAT 92–97; BMI 29.7
--- OUTSIDE RECORDS SUMMARY | 2025-07-10 04:56 | XMS_ITS | Continuity of Care Document ---
Author Organization [facility], [facility], [facility] ([facility]) Address [address] [facility] [place] [address] Assessment No assessment recorded. Plan of Treatment Reminders Order Date Submit Date Provider Last Modified By Organization Details Last Modified Time Details Appointments None record ed. Lab None record ed. Referral None record ed. Procedures None record ed. Surgeries None record ed. Imaging None record ed. Medication Orders None record ed. Patient TargetsNo targets recorded. Patient Instructions Encounter Date Encounter Id Patient Instructions Last Modified By Organization Details Last Modified Time 06/23/2025 [id number] Blood pressure and heart rate controlled. Mood good, doing well. [email or web address] Not available 06/23/2025 12:55:44 Reason for Referral None Reported. Problems Name Problem SNOMED Code Status Onset Date Resolution Date Notes Provider Name and Address Organization Details Recorded Time Benign essential hypertensi on 3763468 Active 2002 Hyperte nsion; 003 2:28PM by Jeremie Gordillo MD, Office Visit; Promote d; acuity set as *; Not Available [facility] 3 03:14:21 Arthritis 7535528 Active 2002 Arthrit is; 003 2:29PM by Jeremie Gordillo MD, Office Visit; Promote d; acuity set as *; [facility] 03:14:22 Chronic kidney disease due to type 2 diabetes mellitus 065973552491 Active 2024 [facility] 14:58:38 Chronic kidney disease stage 3 890777575 Active 2024 [facility] [place] 5 14:58:38 Benign prostatic hyperplasi a 689926033 Active 2024 [facility] [place] 5 14:58:39 Iron deficiency anemia 43951479 Active 2024 [facility] [place] 5 14:58:41 Problem Notes None recorded. Medical Equipment None Reported. Medications Name Sig Start Date Stop Date Status Note LastModified by Organization Details LastModified Time doxycycli ne hyclate 100 mg capsule take 1 capsule BY MOUTH TWICE DAILY FOR THREE DAYS 04/14 completed Not Available Not Available Not Available Zantac 150 mg tablet BID/PRN 2002 active Recorded 07/18/20 03 3:00PM by Jeremie Gordillo MD, Office Visit; Refill Quantity : 30; Tab; Not Available Not Available Not Available tamsulosi n 0.4 mg capsule take 1 capsule BY MOUTH EVERY DAY active Not Available Not Available No t Available triamcino lone acetonide 0.1 % topical ointment apply TWICE DAILY TO dry areas ON LEFT arm FOR THREE weeks use no more THAN TWO weeks PER MONTH FOR flares active Not Available Not Available No t Available hydrochlo rothiazid e 25 mg tablet TAKE 1 TABLET BY MOUTH EVERY MORNING active Not Available Not Available No t Available mupirocin 2 % topical ointment APPLY TO THE AFFECTED AREA(S) ON face one TO two times a DAY UNTIL HEALED active Not Available Not Available No t Available cefdinir 300 mg capsule take 1 capsule BY MOUTH TWICE DAILY FOR 7 DAYS 04/14 completed Not Available Not Available Not Available amoxicill in 875 mg-potass ium clavulana te 125 mg tablet TAKE 1 TABLET BY MOUTH TWICE DAILY FOR SEVEN DAYS 04/14 completed Not Available Not Available Not Available nitrofura ntoin monohydra te/macroc rystals 100 mg capsule take 1 capsule BY MOUTH EVERY TWELVE HOURS with meal/mazin d for 5 days 04/14 completed Not Available Not Available Not Available Norvasc QD 2002 active Recorded 07/18/20 03 3:00PM by Jeremie Gordillo MD, Office Visit; Refill Quantity : 30; Tab; Not Available Not Available Not Available Bextra QD 2002 active Recorded 07/18/20 03 3:02PM by Jeremie Gordillo MD, Recovere d Encounte r; Refill Quantity : 30; Tab; Not Available Not Available Not Available Vitals Date Recorded Body weight Heart rate Respiratory rate Body temperature Oxygen saturation Systolic And Diastolic Provider Name and Address Organization Details Last Updated DateTime 5 914334. 1 g 66 /min 18 /min 96.8 [degF] 94 % 154/72 mm[Hg] NIKITA VELASQUEZ [facility] 5 12:53:45 Social History None recorded. Functional Status None recorded. Mental Status None recorded. Family History Nothing Reported. Medical History No medical history recorded. Immunizations Vaccine Type Date Status Note Provider Nam e and Address Organization Details Recorded Time Tdap 1 completed Not Available [facility] 07/03/2025 11:46:10 Influenza, high-dose, trivalent, PF 5 completed Not Available [facility] 07/03/2025 11:46:10 Pneumococcal conjugate PCV 13 5 completed Not Available [facility] 07/03/2025 11:46:10 Influenza, high-dose, trivalent, PF 6 completed Not Available [facility] 07/03/2025 11:46:10 pneumococcal polysaccharide PPV23 7 completed Not Available [facility] 07/03/2025 11:46:10 Influenza, high-dose, trivalent, PF 7 completed Not Available [facility] 07/03/2025 11:46:10 Influenza, high-dose, trivalent, PF 8 completed Not Available [facility] 07/03/2025 11:46:10 Tdap 9 completed Not Available [facility] 07/03/2025 11:46:10 Influenza, split virus, quadrivalent, preservative 9 completed Not Available [facility] 07/03/2025 11:46:10 zoster recombinant 0 completed Not Available [facility] 07/03/2025 11:46:10 Influenza, recombinant, quadrivalent, PF 0 completed Not Available [facility] 07/03/2025 11:46:10 COVID-19, mRNA, LNP-S, PF, 30 mcg/0.3 mL dose 1 completed Not Available [facility] 07/03/2025 11:46:10 COVID-19, mRNA, LNP-S, PF, 30 mcg/0.3 mL dose 1 completed Not Available [facility] 07/03/2025 11:46:10 zoster recombinant 1 completed Not Available [facility] 07/03/2025 11:46:10 COVID-19, mRNA, LNP-S, PF, 30 mcg/0.3 mL dose 1 completed Not Available [facility] 07/03/2025 11:46:10 Influenza, adjuvanted, quadrivalent, PF 2 completed Not Available [facility] 07/03/2025 11:46:10 COVID-19, mRNA, LNP-S, bivalent, PF, 30 mcg/0.3 mL dose 2 completed [facility]/03/2025 11:46:10 Influenza, high-dose, quadrivalent, PF 3 completed [facility] 07/03/2025 11:46:10 Tdap 3 completed Not Available [facility] 07/03/2025 11:46:10 Influenza, split virus, trivalent, PF 4 completed Not Available [facility] 07/03/2025 11:46:10 Influenza, split virus, trivalent, preservative 3 completed Not Available [facility] 02/25/2023 02:31:40 Past Encounters Encounter ID Performer Location Encounter Start Date Encounter Closed Date Diagnosis/Indication Diagnosis SNOMED-CT Code Diagnosis ICD10 Code Diagnosis IMO Codes Diagnosis Note [id number] Mike Serrano DO [facility] ([facility]) [address] [place] [phone] 05/26/2025 13:52:35 05/28/2025 08:37:05 History of fall 429723729 Z91.81 1688733 Benign ess ential hypertension 7801803 I10 Chronic ki dney disease due to type 2 diabetes mellitus 8267669746 08 E11.22 8092456662 Iron defic iency anemia 51779299 D50.8 2504435 [id number] Mike Serrano DO [facility] ([facility]) [address] [place] [address] 06/23/2025 12:00:18 07/01/2025 14:06:15 Benign essential hypertension 1580547 I10 Benign pro static hyperplasia 881129839 N40.1 85748554 Arthritis 4143023 M19.90 Chronic ki dney disease stage 3 900752279 N18.30 8305306269 Chronic ki dney disease due to type 2 diabetes mellitus 9634382093 08 E11.22 6329792982 Iron defic iency anemia 15019783 D50.8 8564374 Health Concerns Section Related Observation LastModified by Organization Detai ls LastModified Time None Recorded Concern Status LastModified by Organization Details LastModified Time None Recorded Payers Encounter Date Sequence Insurance Name Policy Number Policy Elliott Covered Member ID Elliott Member ID Guarantor Name 06/23/2025 1 [place] Rufus Gonsalez [id number] Rufus Gonsalez 06/23/2025 2 [place] Rufus Gonsalez [id number] Rufus Gonsalez Notes Date Note Type Note Provider Name and Address Organization Details Recorded Time 5 text/html HypertensionReported by PatientHPIFor severity, patient reportsgrade 1 (130-139/80-89). For duration, patient reportshas noted for years. For alleviating factors, patient reportsmedication.ROS as noted in the HPI no complaints per staff or patient. Mike Serrano DO [address] [place] [address], [phone], [facility] 06/29/2025 16:18:04
--- OUTSIDE RECORDS SUMMARY | 2025-07-10 04:59 | XMS_ITS | Patient Health Record ---
Author Organization [email or web address], [facility] Address [address] [place] [address] Care Team Providers Care Truck Leasing Manager Name Role Phone Torsten Jesus Primary Care Provider DONNA oLuise Unavailable [phone] SHARONDA ISABELLE Unavailable [phone] Allergies No Known Allergies Results Component Value Reference Range Notes Urinalysis, Routine Reviewed date:01/23/2025 01:13:16 PM Interpretation: Performing Lab: Notes/Report: Urine-Color dark yellow Appearance slightly cloudy Glucose - Bilirubin - Ketones - Specific Palm 1.025 Occult Blood 3+ pH 6.0 Urine Protein 2+ Urobilinogen,Semi-Qn - Nitrite, Urine - WBC Esterase - Reason For Referral No Information Medications Medication SIG (Take, Route, Frequency, Duration) Notes Start Date End Date Status Valsartan 80 MG 1 tablet twice a day; Duration: 90 Active Vitamin D3 50 MCG (1999) 1 tablet Orally Once a day Active Tamsulosin HCl 0.4 MG TAKE 1 CAPSULE BY MOUTH EVERY DAY FOR 30 DAYS; Duration: 90 Active Claritin 10 MG 1 tablet Orally Once a day Active Triamcinolone Acetonide 0.1 % APPLY DAILY TO SKIN TO AFFECTED AREA TWICE A DAY FOR 2 WEEKS; Duration: 30 Active Terazosin HCl 10 MG 1 tablet at bedtime Orally Once a day; Duration: 90 days *Pick strength-form from Reactful for eRX* Active Glimepiride 2 MG 1 tablet with breakfast or the first main meal of the day Orally Once a day; Duration: 90 days Decrease from BID to daily due to patients concerns for hypoglycemic episodes 11/12/2020 Active rOPINIRole HCl 1 MG 1 tablet 1 to 3 hours before bedtime Orally Once a day Active Reglan 10 MG 1 tablet as directed Orally once; Duration: 1 day 06/13/2022 Not-Taking Actos 30 MG 1 tablet Orally Once a day Active Reglan 10 MG as directed Orally one time; Duration: 1 day 09/19/2022 Not-Taking Meclizine HCl 25 MG 1 tablet as needed Orally every 12 hrs Active hydroCHLOROthiazide 25 MG 1 tablet in the morning Orally Once a day Active Pantoprazole Sodium 40 MG 1 tablet Orally Once a day; Duration: 90 days Active Vitamin B12 500 MCG 1 tablet Orally Once a day Active Pravastatin Sodium 80 MG TAKE 1 TABLET BY MOUTH EVERY DAY; Duration: 90 Active SITagliptin Phosphate 100 MG 1 tablet Orally Once a day Active Reglan 10 MG 1 tablet before meals Orally once a day; Duration: 1 day 08/05/2022 Not-Taking Tylenol 8 Hour Arthritis Pain 650 MG 1 tablet Orally as needed Active Atenolol 50 MG 1 tablet Orally Once a day; Duration: 90 days Active Ferrous Sulfate 325 MG as directed orally Once a day; Duration: 90 days *Pick strength-form from Reactful for eRX* Active metFORMIN HCl 1000 MG 1 tablet with a meal Orally BID; Duration: 30 day(s) Active Aspirin 81 81 MG 1 tablet Orally Once a day; Duration: 30 day(s) *Pick strength-form from Reactful for eRX* 08/04/2020 Active Stool Softener 100 MG 1 capsule as needed Orally Once a day Active traMADol HCl 50 MG 1 tablet as needed Orally bid; Duration: 30 days 08/03/2021 Active Immunizations Vaccine Route Administration Date Status Comme nts Pneumococcal polysaccharide PPV23 Unknown 2017 Administered Immunization Given by from source eCW:: Influenza (whole), CPT 08223 Inactive Unknown 04/30/2017 Administered Influenza (whole), CPT 27555 Inactive Unknown 04/30/2018 Administered Flucelvax IM Intramuscular 05/25/2021 Administered COVID-19 Vaccine (Pfizer) Dose #1 Unknown 08/28/2020 Administered Immunization Given by from source eCW:: COVID-19 Vaccine (Moderna) Dose #2 Unknown 09/25/2020 Administered Immunization Given by from source eCW:: Social History Tobacco Use: Social History Observation Description Date Details (start date - stop date) Former Smoker NA - NA Tobacco Control (Standard) Question Answer Notes Tobacco use: Former smoker How long has it been since you last smoked? Grea ter than 10 years AUDIT-C (Standard) Question Answer Notes Did you have a drink containing alcohol in the p ast year? No Points 0 Interpretation Negative Problems Problem Type SNOMED Code ICD Code Onset Dates Problem Status W/U Status Risk Notes Problem Nocturia (406391742) Nocturia (R35.1) Active confirmed Problem Essential hypertension (39802185) Essential hypertension (I10) Active confirmed Problem Osteoarthritis (802820995) Osteoarthritis, unspecified osteoarthritis type, unspecified site (M19.90) Active confirmed Problem Lower urinary tract symptoms due to benign prostatic hypertrophy (65212594741034) Benign prostatic hyperplasia with lower urinary tract symptoms (N40.1) Active confirmed Problem Iron deficiency anemia (04786573) Iron deficiency anemia, unspecified iron deficiency anemia type (D50.9) Active confirmed Problem Dysphagia (32265752) Pharyngoesophageal dysphagia (R13.14) Active confirmed Problem History of malignant neoplasm of prostate (790887299) History of prostate cancer (Z85.46) Active confirmed Problem Thrombocytopenia (687144871) Thrombocytopenia (D69.6) Active confirmed Problem Hyperlipidaemia (48078755) Hyperlipidemia, unspecified hyperlipidemia type (E78.5) Active confirmed Problem Constipation (48425302) Constipation (K59.00) Active confirmed Problem Hyperglycemia due to type 2 diabetes mellitus (839741125747955) Uncontrolled type 2 diabetes mellitus with hyperglycemia (E11.65) Active confirmed Problem History of malignant neoplasm of prostate (934153259) Hx of malignant neoplasm of prostate (Z85.46) Active confirmed Problem History of radiation therapy (180114427) History of radiation therapy (Z92.3) Active confirmed Problem Gastroesophageal reflux disease without esophagitis (105320953) Gastroesophageal reflux disease without esophagitis (K21.9) Active confirmed Problem Chronic kidney disease stage 3A (disorder) (600767690) Stage 3a chronic kidney disease (CKD) (N18.31) Active confirmed Problem History of adenomatous polyp of colon (784383570) History of adenomatous polyp of colon (Z86.010) Active confirmed Problem Overactive urinary bladder (disorder) (401198401) OAB (overactive bladder) (N32.81) Active confirmed Problem Type II diabetes mellitus without complication (363274926) Controlled type 2 diabetes mellitus without complication, without long-term current use of insulin (E11.9) Inactive confirmed Problem Malignant tumor of prostate (939964041) Prostate cancer (C61) Inactive confirmed Vital Signs Heart Rate 57 /min 01/23/2025 Height-cm 181.61 cm 01/23/2025 Blood pressure diastolic 88 mm Hg 01/23/2025 Weight-kg 102.06 kg 01/23/2025 Height 71.5 in 01/23/2025 Blood pressure systolic 179 mm Hg 01/23/2025 Weight 225 lbs 01/23/2025 BMI 30.94 kg/m2 01/23/2025 Procedures Procedure Date Ordered Date Performed Result Body Sit e Bladder Scan 01/23/2025 01/23/2025 0 mL Encounters Encounter Location Date Provider Diagnosis [employer] [address] [facility] [place] [address] 01/23/2025 ISABELLE MCDONOUGH Benign prostatic hyperplasia with lower urinary tract symptoms N40.1 ; Gross hematuria R31.0 ; Nocturia R35.1 ; History of prostate cancer Z85.46 and History of radiation therapy Z92.3 [employer] [address] [facility] [place] [address] 01/06/2025 DONNA ANDRADE Assessments Encounter Date Diagnosis (ICD Code) Assessment Notes Treatment Notes Treatment Clinical Notes Section Notes 01/23/2025 Gross hematuria (ICD-10 - R31.0) We discussed the indications and rationale for a hematuria workup including the possibility of malignancy causing hematuria. In terms of the workup specifically, we discussed the need for evaluation of the upper urinary tracts with radiologic imaging and the lower urinary tract with cystoscopy. We will set up the CT scan w/ and w/o contrast and delayed imaging per hematuria protocol. We will also schedule for next available cystoscopy. 01/23/2025 Benign prostatic hyperplasia with lower urinary tract symptoms (ICD-10 - N40.1) 01/23/2025 Nocturia (ICD-10 - R35.1) 01/23/2025 History of prostate cancer (ICD-10 - Z85.46) No recent PSA. Will check new PSA and review at follow up. 01/23/2025 History of radiation therapy (ICD-10 - Z92.3) Plan Of Treatment Pending Test Test Name Order Date CT Abd & Pelvis W & [place] [address] 01/23/2025 Bladder scan 10/15/2021 Bladder scan 09/17/2021 Bladder scan 05/25/2020 Colonoscopy, High Risk Screening-G0105 1 08/13/2021 EGD, Upper GI Diagnostic-93346 Blood Urea Nitrogen (BUN) 01/23/2025 Creatinine Serum 01/23/2025 PSA-Screening 01/23/2025 Future Test Test Name Order Date PSA Diagnostic--68050 05/25/2021 PSA Diagnostic--78270 10/12/2021 Testosterone Total 76398 10/12/2021 PSA Diagnostic--33452 03/13/2022 PSA Diagnostic--06730 09/19/2022 Testosterone Total 28571 09/19/2022 Insurance Providers Payer Name Payer Address Payer Phone Subscriber Number Group Number Insured Name Patient Relationship to Insured Coverage Start Date Coverage End Date CT Medicare [address] [place]ILBERTO DEDE PAUL [id number] Rufus Gonsalez Self - patient is the insured [employer] Insurance [address] [address] [place], [place] [id number] Rufus Gonsalez Self - patient is the insured Medical (General) History Medical History History ICD Code Prostate cancer C61 Iron deficiency anemia D50.9 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
--- OUTSIDE RECORDS SUMMARY | 2025-07-10 04:59 | XMS_ITS | Continuity of Care Document ---
Author Organization [facility], [place], [facility] ([facility]) Address [address] [place] [address] Assessment No assessment recorded. Plan of Treatment [...] Modified By Organization Details Last Modified Time 05/26/2025 [id number] Fall over the weekend, no injuries. Does c/o abd pain, will stop iron and vit D to see if abd pain improves. [email or web address] Not available 05/26/2025 14:42:40 Reason for Referral None Reported. Results Created Date Observation Date Name Description Value Unit Range Abnormal Flag Note LastModifiedBy Organization Detail LastModifiedTime Result Notes None recorded. Problems Name Problem SNOMED Code Status Onset Date Resolution Date Notes Provider Name and Address Organization Details Recorded Time Benign essential hypertensi on 5439246 Active 2002 Hyperte nsion; 003 2:28PM by Jeremie Gordillo MD, Office Visit; Promote d; acuity set as *; Not Available [facility] 3 03:14:21 Arthritis 3141220 Active 2002 Arthrit is; 003 2:29PM by Jeremie Gordillo MD, Office Visit; Promote d; acuity set as *; Not Available [facility] 3 03:14:22 Chronic kidney disease due to type 2 diabetes mellitus 308279290448 Active 2024 NIKITA adan, [facility], [place] 14:58:38 Chronic kidney disease stage 3 889909869 [facility] 14:58:38 Benign prostatic hyperplasi a 246965299 [facility] [place] 5 14:58:39 Iron deficiency anemia 00475062 [facility] [place] 14:58:41 Problem Notes None recorded. Medical Equipment [...] Address Organization Details Last Updated DateTime 5 257154. 28 g 70 /min 18 /min 97.9 [degF] 92 % 136/68 mm[Hg] NIKITA VELASQUEZ [facility] 5 14:39:07 Social History None recorded. Functional Status None recorded. Mental Status None recorded. Family History Nothing Reported. Medical History No medical history recorded. Immunizations Vaccine Type Date Status Note Provider Nam e and Address Organization Details Recorded Time Tdap 1 completed Not Available [facility] 07/03/2025 11:46:10 Influenza, high-dose, trivalent, PF 5 completed Not Available [facility] 07/03/2025 11:46:10 Pneumococcal conjugate PCV 13 5 completed Not Available [facility] 07/03/2025 11:46:10 Influenza, high-dose, trivalent, PF 6 completed Not Available [facility] 07/03/2025 11:46:10 pneumococcal polysaccharide PPV23 7 completed Not Available [facility] 07/03/2025 11:46:10 Influenza, high-dose, trivalent, PF 7 completed Not Available [facility] 07/03/2025 11:46:10 Influenza, high-dose, trivalent, PF 8 completed Not Available [facility] 07/03/2025 11:46:10 Tdap 9 completed Not Available [facility] 07/03/2025 11:46:10 Influenza, split virus, quadrivalent, preservative 9 completed Not Available [facility] 07/03/2025 11:46:10 zoster recombinant 0 completed [facility] Available [facility] 07/03/2025 11:46:10 Influenza, recombinant, quadrivalent, PF 0 completed Not Available [facility] 07/03/2025 11:46:10 COVID-19, mRNA, LNP-S, PF, 30 mcg/0.3 mL dose 1 completed Not Available [facility] 07/03/2025 11:46:10 COVID-19, mRNA, LNP-S, PF, 30 mcg/0.3 mL dose 1 completed Not Available [facility] 07/03/2025 11:46:10 zoster recombinant 1 completed Not Available [facility] 07/03/2025 11:46:10 COVID-19, mRNA, LNP-S, PF, 30 mcg/0.3 mL dose 1 completed Not Available [facility] 07/03/2025 11:46:10 Influenza, adjuvanted, quadrivalent, PF 2 completed Not Available [facility] 07/03/2025 11:46:10 COVID-19, mRNA, LNP-S, bivalent, PF, 30 mcg/0.3 mL dose 2 completed Not Available [facility] 07/03/2025 11:46:10 Influenza, high-dose, quadrivalent, PF 3 completed [facility] Available [facility] 07/03/2025 11:46:10 Tdap 3 completed Not Available [facility] 07/03/2025 11:46:10 Influenza, split virus, trivalent, PF 4 completed Not Available [facility] 07/03/2025 11:46:10 Influenza, split virus, trivalent, preservative 3 completed Not Available [facility] 02/25/2023 02:31:40 Past Encounters Encounter ID Performer Location Encounter Start Date Encounter Closed Date Diagnosis/Indication Diagnosis SNOMED-CT Code Diagnosis ICD10 Code Diagnosis IMO Codes Diagnosis Note [id number] Mike Serrano DO [facility] [address] [place] [address] 05/05/2025 12:44:01 05/07/2025 07:51:52 Benign essential hypertension 4905356 I10 Benign pro static hyperplasia 243972814 N40.1 41831590 Arthritis 2737107 M19.90 Chronic ki dney disease stage 3 280856403 N18.30 4122362855 Chronic ki dney disease due to type 2 diabetes mellitus 5994388573 08 E11.22 1724098168 Iron defic iency anemia 81120372 D50.8 9346610 [id number] Mike Serrano DO [facility] [address] [place] [address] 05/26/2025 13:52:35 05/28/2025 08:37:05 History of fall 239443178 Z91.81 9868183 Benign ess ential hypertension 1965985 I10 Chronic ki dney disease due to type 2 diabetes mellitus 2195455831 08 E11.22 9973232123 Iron defic iency anemia 56189506 D50.8 8134602 Health Concerns Section Related Observation LastModified by Organization Detai ls LastModified Time None Recorded Concern Status LastModified by Organization Details LastModified Time None Recorded Payers Encounter Date Sequence Insurance Name Policy Number Policy Elliott Covered Member ID Elliott Member ID Guarantor Name 05/26/2025 1 [place] [facility] Rufus Gonsalez [id number] 5 Rufus Gonsalez Notes Date Note Type Note Provider Name and Address Organization Details Recorded Time text/html HypertensionReported by PatientHPIFor severity, patient reportsgrade 1 (130-139/80-89). For duration, patient reportshas noted for years. For alleviating factors, patient reportsmedication.ROS as noted in the HPI fall over the weekend, no injuries. Mike Serrano DO [address] [place] [address], [phone], [facility], [place] 05/27/2025 15:03:54
--- OUTSIDE RECORDS SUMMARY | 2025-07-10 04:59 | XMS_ITS | Encounter Summary ---
Author Organization [facility], [facility] Address [address] [place] [address] Phone Care Team Providers Care Radiographer Angiogram Name Role Phone Jay Tineo MD Primary Care Provider [phone] Encounter Details Date Type Department Care Team (Late st Contact Info) Description 08/03/2021 Orders Only [facility] [address] [place] [address] Chronic kidney disease stage 3A (HCC) Social History Tobacco Use Types Packs/Day Years Used Date Smoking Tobacco: Never Assessed Sex and Gender Information Value Date Recorded Sex Assigned at Not on file Legal Sex Male 12:40 PM EST Gender Identity Not on file Sexual Orientation Not on file documented as of this encounter Plan of Treatment Not on file documented as of this encounter Visit Diagnoses Diagnosis Chronic kidney disease stage 3A (HCC) documented in this encounter Care Teams Radiographer Angiogram Relationship Specialty Start Date End Date Jay Tineo MD [address] [place] [address] PCP - General Family Medicine 08/04/21 documented as of this encounter
--- OUTSIDE RECORDS SUMMARY | 2025-07-10 04:59 | XMS_ITS | Continuity of Care Document ---
Author Organization [facility], LShawLLelo, [facility] ([facility]) Address [address] [facility] [place] [address] Assessment No assessment recorded. Plan of Treatment [...] Modified By Organization Details Last Modified Time 04/10/2025 [id number] Planning to work with therapy with goal of returning home. d/c glimepiride. [email or web address] Not available 04/10/2025 15:00:55 Reason for Referral None Reported. Problems Name Problem SNOMED Code Status Onset Date Resolution Date Notes Provider Name and Address Organization Details Recorded Time Benign essential hypertensi on 9484902 Active 2002 Hyperte nsion; 003 2:28PM by Jeremie Gordillo MD, Office Visit; Promote d; acuity set as *; Not Available [facility] 3 03:14:21 Arthritis 9203855 Active 2002 Arthrit is; 003 2:29PM by Jeremie Gordillo MD, Office Visit; Promote d; acuity set as *; Not Available [facility] 3 03:14:22 Chronic kidney disease due to type 2 diabetes mellitus 731287614588 Active 2024 NIKITA adan [place] [facility] 14:58:38 Chronic kidney disease stage 3 531940162 Active 2024 [facility] 14:58:38 Benign prostatic hyperplasi a 221484227 Active 2024 [facility] 14:58:39 Iron deficiency anemia 75935929 Active 2024 [facility] 14:58:41 Problem Notes None recorded. Medical [...] Not Available Not Available Not Available Vitals None Recorded Social History None recorded. Functional Status None recorded. Mental Status None recorded. Family History Nothing Reported. Medical History No medical history recorded. Immunizations Vaccine Type Date Status Note Provider Nam e and Address Organization Details Recorded Time Tdap 1 completed Not Available [facility] 07/03/2025 11:46:10 Influenza, high-dose, trivalent, PF 5 completed Not Available [facility] 07/03/2025 11:46:10 Pneumococcal conjugate PCV 13 5 completed Not Available [facility] 07/03/2025 11:46:10 Influenza, high-dose, trivalent, PF 6 completed Not Available [facility] 07/03/2025 11:46:10 pneumococcal polysaccharide PPV23 7 completed Not Available [facility] 07/03/2025 11:46:10 Influenza, high-dose, trivalent, PF 7 completed Not Available [facility] 07/03/2025 11:46:10 Influenza, high-dose, trivalent, PF 8 completed Not Available [facility] 07/03/2025 11:46:10 Tdap 9 completed Not Available [facility] 07/03/2025 11:46:10 Influenza, split virus, quadrivalent, preservative 9 completed Not Available [facility] 07/03/2025 11:46:10 zoster recombinant 0 completed Not Available [facility] 07/03/2025 11:46:10 Influenza, recombinant, quadrivalent, PF 0 completed Not Available [facility] 07/03/2025 11:46:10 COVID-19, mRNA, LNP-S, PF, 30 mcg/0.3 mL dose 1 completed Not Available [facility] 07/03/2025 11:46:10 COVID-19, mRNA, LNP-S, PF, 30 mcg/0.3 mL dose 1 completed Not Available [facility] 07/03/2025 11:46:10 zoster recombinant 1 completed Not Available [facility] 07/03/2025 11:46:10 COVID-19, mRNA, LNP-S, PF, 30 mcg/0.3 mL dose 1 completed Not Available [facility] 07/03/2025 11:46:10 Influenza, adjuvanted, quadrivalent, PF 2 completed Not Available [facility] 07/03/2025 11:46:10 COVID-19, mRNA, LNP-S, bivalent, PF, 30 mcg/0.3 mL dose 2 completed Not Available [facility] 07/03/2025 11:46:10 Influenza, high-dose, quadrivalent, PF 3 completed Not Available [facility] 07/03/2025 11:46:10 Tdap 3 completed Not Available [facility] 07/03/2025 11:46:10 Influenza, split virus, trivalent, PF 4 completed Not Available [facility] 07/03/2025 11:46:10 Influenza, split virus, trivalent, preservative 3 completed Not Available [facility] 02/25/2023 02:31:40 Past Encounters Encounter ID Performer Location Encounter Start Date Encounter Closed Date Diagnosis/Indication Diagnosis SNOMED-CT Code Diagnosis ICD10 Code Diagnosis IMO Codes Diagnosis Note [id number] Mike Serrano DO [facility] ([facility]) [address] [place] [address] 04/10/2025 12:59:18 04/15/2025 12:01:05 Benign essential hypertension 7355046 I10 Chronic ki dney disease due to type 2 diabetes mellitus 8677189488 08 E11.22 7210628971 Chronic ki dney disease stage 3 183668052 N18.30 1404919149 Benign pro static hyperplasia 861019628 N40.1 91995457 Iron defic iency anemia 93259233 D50.8 2643488 Health Concerns Section Related Observation LastModified by Organization Detai ls LastModified Time None Recorded Concern Status LastModified by Organization Details LastModified Time None Recorded Payers Encounter Date Sequence Insurance Name Policy Number Policy Elliott Covered Member ID Elliott Member ID Guarantor Name 04/10/2025 1 [place]ICARE [place] [employer] Rufusramila Gonsalez [id number] Rufus Gonsalez Notes Date Note Type Note Provider Name and Address Organization Details Recorded Time 5 text/html HypertensionReported by PatientHPIFor severity, patient reportsgrade 1 (130-139/80-89). For duration, patient reportshas noted for years. For alleviating factors, patient reportsmedication.ROS as noted in the HPI new admit to SNF for theapy. Mike Serrano, DO [address] [place] [address], [phone], [facility] 04/14/2025 12:09:37
--- OUTSIDE RECORDS SUMMARY | 2025-07-10 04:59 | XMS_ITS | Encounter Summary ---
Author Organization [facility] [employer] [facility], [facility] Address [address] [facility] [address] [place] [address] Phone Care Team Providers Care Fisher Seal Name Role Phone Jay Tineo MD Primary Care Provider [phone] Encounter Details Date Type Department Care Team (Late st Contact Info) Description 09/21/2021 Orders Only [facility] [employer] [facility] [address] [facility] [address] [place] [address] Type 2 diabetes mellitus with diabetic chronic kidney disease (HCC) Social History Tobacco Use Types Packs/Day Years Used Date Smoking Tobacco: Never Assessed Sex and Gender Information Value Date Recorded Sex Assigned at Not on file Legal Sex Male 12:40 PM EST Gender Identity Not on file Sexual Orientation Not on file documented as of this encounter Plan of Treatment Not on file documented as of this encounter Visit Diagnoses Diagnosis Type 2 diabetes mellitus with diabetic chronic kidney disease (HCC) documented in this encounter Care Teams Fisher Seal Relationship Specialty Start Date End Date Jay Tineo MD [address] [place] [id number] PCP - General Family Medicine 08/04/21 documented as of this encounter
--- OUTSIDE RECORDS SUMMARY | 2025-07-10 04:59 | XMS_ITS | Patient Health Record ---
Author Organization [facility] Address [address] [place] [address] Care Team Providers Care Can Coverer Name Role Phone Jesus Sarmiento Primary Care Provider Vivian Henao [phone] Allergies Allergen (clinical drug ingredient) Drug/Non Drug Allergy documented on EMR Reaction Allergy Type Onset Date Status No Known Drug Allergy Unknown Drug Allergy Active Reason For Referral No Information Medications Medication SIG (Take, Route, Frequency, Duration) Notes Start Date End Date Status Terazosin HCl 10 MG Tablet 1 tablet at bedtime Orally Once a day; Duration: 90 days Active Reglan 10 MG Tablet 1 tablet as directed Orally once; Duration: 1 day 06/13/2022 Active Vitamin D3 50 MCG (1999 UT) Tablet 1 tablet Orally Once a day Active Reglan 10 MG Tablet 1 tablet before meals Orally once a day; Duration: 1 day 08/05/2022 Active Atenolol 50 MG Tablet 1 tablet Orally Once a day; Duration: 90 days Active Reglan 10 MG Tablet as directed Orally one time; Duration: 1 day 09/19/2022 Active Ferrous Sulfate 325 MG Capsule as directed orally Once a day; Duration: 90 days Active Stool Softener 100 MG Capsule 1 capsule as needed Orally Once a day Active Triamcinolone Acetonide 0.1 % Ointment APPLY DAILY TO SKIN TO AFFECTED AREA TWICE A DAY FOR 2 WEEKS; Duration: 30 Active Claritin 10 MG Tablet 1 tablet Orally Once a day Active Valsartan 80 MG Tablet 1 tablet twice a day; Duration: 90 Active metFORMIN HCl 1000 MG Tablet 1 tablet with a meal Orally BID; Duration: 30 day(s) Active Tamsulosin HCl 0.4 MG Capsule TAKE 1 CAPSULE BY MOUTH EVERY DAY FOR 30 DAYS; Duration: 90 Active Aspirin 81 81 MG Tablet Delayed Release 1 tablet Orally Once a day; Duration: 30 day(s) 08/04/2020 Active Pravastatin Sodium 80 MG Tablet TAKE 1 TABLET BY MOUTH EVERY DAY; Duration: 90 Active Pantoprazole Sodium 40 MG Tablet Delayed Release 1 tablet Orally Once a day; Duration: 90 days Active Glimepiride 2 MG Tablet 1 tablet with breakfast or the first main meal of the day Orally Once a day; Duration: 90 days Decrease from BID to daily due to patients concerns for hypoglycemic episodes 11/12/2020 Active Vitamin B12 500 MCG Tablet 1 tablet Orally Once a day Active Tylenol 8 Hour Arthritis Pain 650 MG Tablet Extended Release 1 tablet Orally as needed Active traMADol HCl 50 MG Tablet 1 tablet as needed Orally bid; Duration: 30 days 08/03/2021 Active Immunizations Vaccine Route Administration Date Status Comme nts COVID-19 Vaccine (Moderna) Dose #2 Unknown 09/25/2020 Administered COVID-19 Vaccine (Pfizer) Dose #1 Unknown 08/28/2020 Administered Flucelvax IM Intramuscular 05/25/2021 Administered Influenza (whole), CPT 43616 Inactive Unknown 04/30/2017 Administered Influenza (whole), CPT 92546 Inactive Unknown 04/30/2018 Administered Pneumococcal polysaccharide PPV23 Unknown 2017 Administered Social History Tobacco Use: Social History Observation Description Date Details (start date - stop date) Former Smoker NA - NA Social History Drugs/Alcohol: Social Info Question Answer Notes Alcohol Screen (Audit-C) Did you have a drink containing alcohol in the past year? Yes How often did you have a drink containing alcohol in the past year? Monthly or less (1 point) How many drinks did you have on a typical day when you were drinking in the past year? 1 or 2 drinks (0 point) How often did you have 6 or more drinks on one occasion in the past year? Never (0 point) Points 1 Interpretation Negative Drugs Have you used drugs other than those for medical reasons in the past 12 months? No Household: Social Info Question Answer Notes Household Marital status: Level of education: finished high school Retired Tobacco Use: Social Info Question Answer Notes xTobacco Use/Smoking Are you a former smoker Additional Details Category Social Info Options Details Drugs/Alcohol: Do you smoke marijuana? Abrams Social History Migrated Social History Smoking Status:Ex-smoker (finding) Problems Problem Type SNOMED Code ICD Code Onset Dates Problem Status W/U Status Risk Notes Problem Nocturia (325277316) Nocturia (R35.1) Active confirmed Problem Lower urinary tract symptoms due to benign prostatic hypertrophy (36503437288330) Benign prostatic hyperplasia with lower urinary tract symptoms (N40.1) Active confirmed Problem Essential hypertension (99484737) Essential hypertension (I10) Active confirmed Problem Gastroesophageal reflux disease without esophagitis (961953430) Gastroesophageal reflux disease without esophagitis (K21.9) Active confirmed Problem Iron deficiency anemia (84880339) Iron deficiency anemia, unspecified iron deficiency anemia type (D50.9) Active confirmed Problem Osteoarthritis (099111844) Osteoarthritis, unspecified osteoarthritis type, unspecified site (M19.90) Active confirmed Problem Hyperglycemia due to type 2 diabetes mellitus (535639971429349) Uncontrolled type 2 diabetes mellitus with hyperglycemia (E11.65) Active confirmed Problem Hyperlipidaemia (43076603) Hyperlipidemia, unspecified hyperlipidemia type (E78.5) Active confirmed Problem History of malignant neoplasm of prostate (608245484) Hx of malignant neoplasm of prostate (Z85.46) Active confirmed Problem Constipation (00258025) Constipation (K59.00) Active confirmed Problem Thrombocytopenia (159603176) Thrombocytopenia (D69.6) Active confirmed Problem Dysphagia (69691946) Pharyngoesophageal dysphagia (R13.14) Active confirmed Problem Overactive urinary bladder (disorder) (932821971) OAB (overactive bladder) (N32.81) Active confirmed Problem History of malignant neoplasm of prostate (035190683) History of prostate cancer (Z85.46) Active confirmed Problem History of adenomatous polyp of colon (854498132) History of adenomatous polyp of colon (Z86.010) Active confirmed Problem History of radiation therapy (638273112) History of radiation therapy (Z92.3) Active confirmed Problem Chronic kidney disease stage 3A (disorder) (329326796) Stage 3a chronic kidney disease (CKD) (N18.31) Active confirmed Problem Type II diabetes mellitus without complication (433269582) Controlled type 2 diabetes mellitus without complication, without long-term current use of insulin (E11.9) Inactive confirmed Problem Malignant tumor of prostate (241456702) Prostate cancer (C61) Inactive confirmed Plan Of Treatment No Information Insurance Providers Payer Name Payer Address Payer Phone Subscriber Number Group Number Insured Name Patient Relationship to Insured Coverage Start Date Coverage End Date [place] [address] [place] [phone] [id number] Rufus Gonsalez Self - patient is the insured [employer] [address] [address] [place] [phone] [id number] Rufus Gonsalez Self - patient is the [...] insomnia Psoriasis GERD Surgical History Surgery Date(Month/Year) Radiation for prostate cancer Left shoulder repair 2021 Skin cancer removal, nose CEIOLI both eyes Cryosurgery of prostate Bilateral total knee replacements Hospitalization History Reason Date(Month/Year) see surgical hx CVA
--- OUTSIDE RECORDS SUMMARY | 2025-07-10 04:59 | XMS_ITS | Continuity of Care Document ---
Author Organization [facility], [place], [facility] ([facility]) Address [address] [place] [address] Assessment No assessment recorded. Plan of Treatment [...] Modified By Organization Details Last Modified Time 05/05/2025 [id number] Doing well, mood good. Vitals stable. [email or web address] Not available 05/05/2025 14:25:00 Reason for Referral None Reported. Results Created Date Observation Date Name Description Value Unit Range Abnormal Flag Note LastModifiedBy Organization Detail LastModifiedTime Result Notes None recorded. Problems Name Problem SNOMED Code Status Onset Date Resolution Date Notes Provider Name and Address Organization Details Recorded Time Benign essential hypertensi on 1467012 Active 2002 Hyperte nsion; 003 2:28PM by Jeremie Gordillo MD, Office Visit; Promote d; acuity set as *; Not Available [facility] 3 03:14:21 Arthritis 5862472 Active 2002 Arthrit is; 003 2:29PM by Jeremie Gordillo MD, Office Visit; Promote d; acuity set as *; Not Available [facility] 3 03:14:22 Chronic kidney disease due to type 2 diabetes mellitus 791397275089 Active 2024 NIKITA adan, [facility], [place] 5 14:58:38 Chronic kidney disease stage 3 978472922 [facility] 14:58:38 Benign prostatic hyperplasi a 505008826 Active 2024 [facility] 5 14:58:39 Iron deficiency anemia 22603397 Active 2024 [facility] 5 14:58:41 Problem Notes None recorded. [...] Not Available Not Available Vitals Date Recorded Heart rate Respiratory rate Body temperature Oxygen saturation Systolic And Diastolic Provider Name and Address Organization Details Last Updated DateTime 5 98 /min 20 /min 98.6 [degF] 96 % 144/68 mm[Hg] NIKITA FISHER [facility] 5 14:23:45 Social History None recorded. Functional Status None recorded. Mental Status None recorded. Family History Nothing Reported. Medical History No medical history recorded. Immunizations Vaccine Type Date Status Note Provider Nam e and Address Organization Details Recorded Time Tdap 1 completed Not Available [facility] 07[facility]03[facility]2025 11:46:10 Influenza, high-dose, trivalent, PF 5 completed Not Available [facility] 07/03/2025 11:46:10 Pneumococcal conjugate PCV 13 5 completed Not Available [facility] 07/03/2025 11:46:10 Influenza, high-dose, trivalent, PF 6 completed Not Available [facility] 07/03/2025 11:46:10 pneumococcal polysaccharide PPV23 7 completed Not Available [facility] 07/03/2025 11:46:10 Influenza, high-dose, trivalent, PF 7 completed Not Available [facility] 07/03/2025 11:46:10 Influenza, high-dose, trivalent, PF 8 completed Not Available [facility] 07/03/2025 11:46:10 Tdap 9 completed Not Available [facility] 07/03/2025 11:46:10 Influenza, split virus, quadrivalent, preservative 9 completed Not Available [facility] 07/03/2025 11:46:10 zoster recombinant 0 completed Not Available [facility] 07/03/2025 11:46:10 Influenza, recombinant, quadrivalent, PF 0 completed Not Available [facility] 07/03/2025 11:46:10 COVID-19, mRNA, LNP-S, PF, 30 mcg/0.3 mL dose 1 completed Not Available [facility] 07/03/2025 11:46:10 COVID-19, mRNA, LNP-S, PF, 30 mcg/0.3 mL dose 1 completed Not Available [facility] 07/03/2025 11:46:10 zoster recombinant 1 completed Not Available [facility] 07/03/2025 11:46:10 COVID-19, mRNA, LNP-S, PF, 30 mcg/0.3 mL dose 1 completed Not Available [facility] 07/[facility]/2025 11:46:10 Influenza, adjuvanted, quadrivalent, PF 2 completed Not Available [facility] 07/03/2025 11:46:10 COVID-19, mRNA, LNP-S, bivalent, PF, 30 mcg/0.3 mL dose 2 completed Not Available [facility] 07/03/2025 11:46:10 Influenza, high-dose, quadrivalent, PF 3 completed Not Available [facility] 07/03/2025 11:46:10 Tdap 3 completed Not Available [facility] 07/03/2025 11:46:10 Influenza, split virus, trivalent, PF 4 completed Not Available [facility] 07/03/2025 11:46:10 Influenza, split virus, trivalent, preservative 3 completed Not Available [facility] 02/25/2023 02:31:40 Past Encounters Encounter ID Performer Location Encounter Start Date Encounter Closed Date Diagnosis/Indication Diagnosis SNOMED-CT Code Diagnosis ICD10 Code Diagnosis IMO Codes Diagnosis Note [id number] Mike Serrano DO [facility] ([address] [address] 04/10/2025 12:59:18 04/15/2025 12:01:05 Benign essential hypertension 5875814 I10 Chronic ki dney disease due to type 2 diabetes mellitus 1624575872 08 E11.22 3396423299 Chronic ki dney disease stage 3 007769118 N18.30 2240229232 Benign pro static hyperplasia 148693847 N40.1 48941692 Iron defic iency anemia 92348368 D50.8 3766373 [id number] Mike Serrano DO [facility] ([facility]) [address] [place] [address] 05/05/2025 12:44:01 05/07/2025 07:51:52 Benign essential hypertension 6843462 I10 Benign pro static hyperplasia 129820254 N40.1 23480058 Arthritis 0982300 M19.90 Chronic ki dney disease stage 3 841914038 N18.30 2134680580 Chronic ki dney disease due to type 2 diabetes mellitus 7595698633 08 E11.22 3066586753 Iron defic iency anemia 96287559 D50.8 7787531 Health Concerns Section Related Observation LastModified by Organization Detai ls LastModified Time None Recorded Concern Status LastModified by Organization Details LastModified Time None Recorded Payers Encounter Date Sequence Insurance Name Policy Number Policy Elliott Covered Member ID Elliott Member ID Guarantor Name 05/05/2025 1 MEDICARE B-[place]: [facility] Rufus Gonsalez [id number] Rufus Gonsalez Notes Date Note Type Note Provider Name and Address Organization Details Recorded Time text/html HypertensionReported by PatientHPIFor severity, patient reportsgrade 1 (130-139/80-89). For duration, patient reportshas noted for years. For alleviating factors, patient reportsmedication.ROS as noted in the HPI no complaints per staff or patient. Mike Serrano DO [address] [place] [address], [id number], [facility], [place]aw[place] 05/05/2025 15:09:09
--- OUTSIDE RECORDS SUMMARY | 2025-07-10 04:59 | XMS_ITS | Clinical Summary ---
Author Organization [facility] Address [address] [place] [address] Care Team Providers Care Branch Services Manager Name Role Phone Jay Tineo MD Primary Care Provider [phone] Social History Tobacco Use Types Packs/Day Years Used Date Smoking Tobacco: Never Assessed Sex and Gender Information Value Date Recorded Sex Assigned at Not on file Legal Sex Male 12:40 PM EST Gender Identity Not on file Sexual Orientation Not on file Plan of Treatment Health Maintenance Due Date Last Done Comments Pneumococcal Vaccine: 50+ Ye ars (2 of 2 - PCV) 2018 2017 Diabetes: Hemoglobin A1C 09/21/2021 Diabetes: Ophthalmology Exam 09/21/2021 Diabetes: Pedal Pulse Checked 09/21/2021 Diabetes: Sensory Foot Exam 09/21/2021 Diabetes: Visual Foot Exam 09/21/2021 Influenza Vaccine (#1) 2025 05/25/2021 Hepatitis B Vaccine Aged Out No longe r eligible based on patient's age to complete this topic Insurance [facility] [employer] 1,2,3 (VACCN) Care Teams Branch Services Manager Relationship Specialty Start Date End Date Jay Tineo MD [address] [place] [address] PCP - General Family Medicine 08/04/21
--- NOTE | 2025-07-10 05:04 | XRR_ITS ---
PROCEDURE INFORMATION: Exam: XR Chest Exam date and time: 07/10/2025 5:24 AM Age: 85 years old Clinical indication: Shortness of breath; Additional info: Hypoxia TECHNIQUE: Imaging protocol: Radiologic exam of the chest. Views: 1 view. COMPARISON: CR (CHEST, ) 01/31/2025 4:09 PM FINDINGS: Lungs: Unremarkable. No consolidation. Pleural spaces: Unremarkable. No pleural effusion. No pneumothorax. Heart/Mediastinum: Borderline cardiomegaly. Bones/joints: Unremarkable. Opacity in the lateral right mid lung suggesting infiltrate. Minimal infiltrate or atelectasis at the left base. Degenerative changes of the shoulders. XR/XR chest 1V portable [id number] IMPRESSION: Mild developing opacity in the lateral right middle lobe.
[2025-07-10 05:17] LABS: Hematocrit 30.6 % (37-53); Hemoglobin 9.80 g/dL (11.27-16.99); Mean Corpuscular HGB Conc 32.0 g/dL (30-55); Mean Corpuscular Hemoglobin 27.8 pg (27-33); Mean Corpuscular Volume 86.7 fl (82-101); Nucleated Red Blood Cells % 0 %; Platelet Count 106 10^3/cmm (157-399); Red Blood Count 3.53 10^6/uL (3.85-5.65); White Blood Count 3.04 10^3/uL (3.29-11.43)
--- NOTE | 2025-07-10 05:22 | ECG_ITS ---
[facility] Test Date: 2025-07-10 Pat Name: Rufus Gonsalez Department: Room: Gender: Male Carriage Setter: : 1940 Requested By: Krupa iDaz Order Number: [id number] Silvano MD: Sheila Waite M.D. Measurements Intervals [place] Rate: 61 P: 93 SD: 208 QRS: 51 QRSD: 95 T: 32 QT: 410 QTc: 416 Interpretive Statements SINUS RHYTHM NONSPECIFIC ST & T-WAVE ABNORMALITY Compared to ECG 05/05/2025 14:51:04 T-wave abnormality now present Sinus bradycardia no longer present Electronically Signed On 07-10-2025 17:21:42 JOURNEYMAN WELDER by Sheila Waite M.D. [email or web address]
[2025-07-10 05:26] LABS: Lactic Sepsis W/Reflex 1.1 mmol/L (0.5-2.2)
[2025-07-10 05:28] LABS: Troponin(5th) Baseline 59 ng/L (0-15)
[2025-07-10 05:37] LABS: Alanine Aminotransferase 9 U/L (0-41); Albumin Level 4.4 g/dL (3.5-5.2); Alkaline Phosphatase 54 U/L (40-130); Anion Gap 14.8 (5-19); Aspartate Amino Transferase 22 U/L (0-40); Blood Urea Nitrogen 23 mg/dL (8-23); Calcium 9.3 mg/dL (8.5-10.5); Carbon Dioxide 25 mmol/L (22-29); Chloride 103 mmol/L (98-107); Globulin 2.1 g/dL (1.3-4.6); Glucose 174 mg/dL (65-115); NT Pro B Type Natriuretic Pept 9705 pg/mL (0-450); Osmolality Calculated 296 mOsm/kg (285-295); Potassium 3.8 mmol/L (3.5-5.1); Sodium 139 mmol/L (136-145); Total Protein 6.5 g/dL (6.6-8.7)
--- NOTE | 2025-07-10 05:39 | ED_ITS ---
HPI - URI/Sore Throat 2 General: Chief Complaint: Upper Respiratory Infection Stated Complaint: fever, weakness Time Seen by Provider: 07/10/25 05:31 Source: patient and EMS Mode of arrival: EMS Limitations: no limitations History of Present Illness: 85-year-old male is here from nursing ho me states he had some slight cough congestion over the last few days he states he has just been feeling generally weak as well. Denies any fever. jail stated had some chest pain but he denies here. Denies any vomiting or diarrhea denies any worse improved factors Related Data Home Medications ?Medication ?Instructions ?Recorded ?Confirmed cholecalciferol (vitamin D3) 50 50 mcg PO DAILY 01/03/25 mcg (2,000 unit) capsule Previous Rx's ?Medication ?Instructions ?Recorded motorized wheelchair #1 ea 10/25/22 aspirin 81 mg tablet,delayed 81 mg PO DAILY circulatio n #90 tabs 11/08/24 release atenolol 50 mg tablet See Rx Instructions .Route 0 11/08/24 .COMPLEX #90 tabs blood sugar diagnostic (Contour #100 ea 11/08/24 Next Test Strips) cetirizine 10 mg tablet (All Day 10 mg PO DAILY PRN Allergy (cetirizine)) allergy/diaainess #90 tabs ferrous sulfate 324 mg (65 mg 324 mg PO DAILY anemia # 90 tabs 11/08/24 iron) tablet,delayed release glimepiride 4 mg tablet 4 mg PO BID diabetes #180 ta bs 11/08/24 lancets (Microlet Lancet) #400 ea 11/08/24 meclizine 25 mg tablet 25 mg PO .q 6 hr PRN dizzine ss 11/08/24 #180 tabs metformin 1,000 mg tablet 1,000 mg PO BID diabetes #18 0 tabs 11/08/24 pantoprazole 40 mg tablet,delayed 40 mg PO DAILY PRN a anila reflux #90 11/08/24 release tabs pioglitazone 30 mg tablet (Actos) 30 mg PO DAILY diabe judy #90 tabs 11/08/24 ropinirole 2 mg tablet See Rx Instructions .Route 0 11/08/24 .COMPLEX #90 tabs sitagliptin phosphate 100 mg 100 mg PO DAILY diabetes #90 tabs 11/08/24 tablet (Januvia) valsartan 80 mg tablet 80 mg PO DAILY blood pressur e and 11/08/24 kidney protection #90 tabs hydrochlorothiazide 25 mg tablet 25 mg PO QAM #14 tabs 01/10/25 metoclopramide HCl 10 mg tablet 10 mg PO BID gastropar esis #180 02/18/25 tabs tamsulosin 0.4 mg capsule See Rx Instructions .Route 0 02/18/25 .COMPLEX #90 caps Allergies Allergy/AdvReac Type Severity Reaction Status Date / Time No Known Allergies Allergy Verified 01/03/25 10:18 PFSH ED 2 PFSH: Medical History (Updated 07/10/25 @ 07:08 by Silvestre Gogn MD) Debilitated patient Health counseling Orthostatic dizziness Behavior related to cognitive impairment Anemia Pancytopenia Restless legs syndrome (RLS) CKD stage 3 due to type 2 diabetes mellitus BPH loc w urin obs/LUTS Dyslipidemia associated with type 2 diabetes mellitus GERD (gastroesophageal reflux disease) Diabetic gastroparesis Rotator cuff dysfunction Cataract HTN (hypertension) with goal to be determined Stroke Diabetes type 2, controlled Surgical History H/O shoulder surgery H/O total knee replacement Social History Smoking and tobacco/nicotine status: former use of tobacco/nicotine Alcohol intake: never Substance/Drug Use: never Physical Exam 2 Const: COMMON NORMALS: patient oriented x3 HENMT: COMMON NORMALS: normocephalic and atraumatic HEAD & SCALP: n ormocephalic and atraumatic Eye: COMMON NORMALS: Equal, round and reactive pupils present and EOMs intact bilaterally PUPIL: Yes Equal, round and reactive pupils present Neck/C-Spine: COMMON NORMALS: full ROM and supple Chest: COMMONS NORMALS: normal inspection of the chest and normal palpation of entire chest wall Resp: COMMON NORMALS: normal respiratory effort, No retractions, No use of accessory muscles and clear to auscultation bilaterally AUSCULTATION: clear to auscultation bilaterally Cardio: COMMON NORMALS: regular rate, regular rhythm and No murmurs present (Cardio) RATE: regular rate RHYTHM: regular rhythm GI: COMMON NORMALS: Normal to inspection, nondistended, normoactive bowel sounds present, Soft to palpation, non-tender and no masses PALPATION: Yes Soft to palpation Extremity: COMMON NORMALS: normal to inspection and full ROM Neuro: COMMON NORMALS: patient oriented x3, moves all extremities and no focal motor deficits Psych: COMMON NORMALS: mental status grossly normal, Normal thought process present and cooperative THOUGHT PROCESS: Normal thought process present Skin: COMMON NORMALS: no rashes or lesions noted and no wounds GENERAL SKIN EXAM: no rashes or lesions noted Course 2 Vital Signs: Vital signs: Vital Signs Temperature 98.4 F 07/10/25 04:49 Pulse Rate 63 07/10/25 04:49 Respiratory Rate 16 07/10/25 04:49 Blood Pressure 120/70 07/10/25 06:10 Pulse Oximetry 96 07/10/25 06:10 Oxygen Delivery Nh thod Room Air 07/10/25 04:49 MDM - URI/Sore Throat Medical Decision Making Patient presents here with cough congestion differential includes pneumonia, URI. Patient chest x-ray interpreted by me showed no acute abnormality patient did test positive for COVID this is likely causing his symptoms he is in no distress here he is stable for discharge back to senior care follow-up PCP return if worsening. EKG interpreted by me at 0608 normal sinus rhythm heart rate [address] elevation QRS 92 QTc 411 Medical Records I reviewed the patient's medical records. Lab Data I reviewed the patient's lab results. 07/10/25 05:00 07/10/25 05:00 Radiology Impressions Chest X-Ray 07/10/25 05:04 IMPRESSION: Mild developing opacity in the lateral right middle lobe. Laboratory Results WBC 3.04 10^3/uL (3.29-11.43) L 07/10/25 05:00 RBC 3.53 10^6/uL (3.85-5.65) L 07/10/25 05:00 Hgb 9.80 g/dL (11.27-16.99) L 07/10/25 05:00 Hct 30.6 % (37-53) L 07/10/25 05:00 MCV 86.7 fl (82-101) 07/10/25 05:00 MCH 27.8 pg (27-33) 07/10/25 05:00 MCHC 32.0 g/dL (30-55) 07/10/25 05:00 RDW 14.1 % (12.1-15.1) 07/10/25 05:00 Plt Count 106 10^3/cmm (157-399) L 07/10/25 05:00 MPV 10.5 fL (7.4-10.4) H 07/10/25 05:00 Neut % (Auto) 68.2 % 07/10/25 05:00 Lymph % (Auto) 10.5 % 07/10/25 05:00 Morris % (Auto) 20.7 % 07/10/25 05:00 Eos % (Auto) 0.3 % 07/10/25 05:00 Baso % (Auto) 0.0 % 07/10/25 05:00 Neut # (Auto) 2.07 10^3/uL (1.8-7.7) 07/10/25 05:00 Lymph # (Auto) 0.3 10^3/uL (0.8-4.8) L 07/10/25 05:00 Morris # (Auto) 0.6 10^3/uL (0.2-0.9) 07/10/25 05:00 Eos # (Auto) 0.0 10^3/uL (0.0-0.8) 07/10/25 05:00 Baso # (Auto) 0.0 10^3/uL (0.0-0.1) 07/10/25 05:00 Nucleated RBC % (auto) 0 % 07/10/25 05:00 Nucleated RBCs # 0.0 /100WBC 07/10/25 05:00 Sodium 139 mmol/L (136-145) 07/10/25 05:00 Potassium 3.8 mmol/L (3.5-5.1) 07/10/25 05:00 Chloride 103 mmol/L (98-107) 07/10/25 05:00 Carbon Dioxide 25 mmol/L (22-29) 07/10/25 05:00 Anion Gap 14.8 (5-19) 07/10/25 05:00 BUN 23 mg/dL (8-23) 07/10/25 05:00 Creatinine 1.5 mg/dL (0.7-1.2) H 07/10/25 05:00 GFR Calculation Not Reportable 07/10/25 05:00 Glucose 174 mg/dL (65-115) H 07/10/25 05:00 Calculated Osmolality 296 mOsm/kg (285-295) H 07/10/25 05:00 Lactic Acid 1.1 mmol/L (0.5-2.2) 07/10/25 05:00 Calcium 9.3 mg/dL (8.5-10.5) 07/10/25 05:00 Total Bilirubin 0.4 mg/dL (0.15-1.2) 07/10/25 05:00 AST 22 U/L (0-40) 07/10/25 05:00 ALT 9 U/L (0-41) 07/10/25 05:00 Alkaline Phosphatase 54 U/L (40-130) 07/10/25 05:00 Troponin T Baseline 59 ng/L (0-15) H 07/10/25 05:00 Troponin T 60 Minute 53.58 ng/L (0-15) H 07/10/25 06:32 Delta Troponin T -5.42 ABS# (0-10) L 07/10/25 06:32 NT-Pro-B Natriuret Pep 9705 pg/mL (0-450) H 07/10/25 05:00 Total Protein 6.5 g/dL (6.6-8.7) L 07/10/25 05:00 Albumin 4.4 g/dL (3.5-5.2) 07/10/25 05:00 Globulin 2.1 g/dL (1.3-4.6) 07/10/25 05:00 Urine Color Yellow (Yellow) 07/10/25 05:37 Urine Appearance Turbid (CLEAR) A 07/10/25 05:37 Urine pH 5.0 (5-7) 07/10/25 05:37 Ur Specific [place] 1.022 (1.005-1.030) 07/10/25 05:37 Urine Protein 3+ (Negative) A 07/10/25 05:37 Urine Glucose (UA) Negative (Normal) 07/10/25 05:37 Urine Ketones Negative (Negative) 07/10/25 05:37 Urine Blood 3+ (Negative) A 07/10/25 05:37 Urine Nitrate Negative (Negative) 07/10/25 05:37 Urine Bilirubin Negative (Negative) 07/10/25 05:37 Urine Urobilinogen 0.2 mg/dL (Negative) 07/10/25 05:37 Ur Leukocyte Esterase Negative (Negative) 07/10/25 05:37 Urine RBC >100 /hpf (0-2) H 07/10/25 05:37 Urine WBC 0-5 /hpf (0-5) 07/10/25 05:37 Ur Squamous Epith Cells 6-10 /hpf (0-5) 07/10/25 05:37 Amorphous Sediment Not Reportable 07/10/25 05:37 Urine Bacteria None seen /hpf (NONE) 07/10/25 05:37 Hyaline Casts 8.26 /lpf 07/10/25 05:37 Urine Mucus Trace /hpf 07/10/25 05:37 Influenza A (PCR) Negative (Negative) 07/10/25 05:01 Influenza Type B (PCR) Negative (Negative) 07/10/25 05:01 RSV (PCR) Negative (Negative) 07/10/25 05:01 SARS-CoV-2 (PCR) Positive (Negative) A 07/10/25 05:01 All radiology interpretation(s) finalized by discharge Discharge Plan Discharge Patient Disposition: Home Clinical Impression: COVID-19 Condition: Stable Prescriptions: No Action aspirin 81 mg tablet,delayed release (DR/EC) 81 mg PO DAILY Qty: 90 3RF atenolol 50 mg tablet See Rx Instructions .ROUTE .COMPLEX Qty: 90 3RF Dose Instruction: TAKE 1 TABLET DAILY FOR BLOOD PRESSURE Rx Instructions: TAKE 1 TABLET DAILY FOR BLOOD PRESSURE (DME) Contour Next Test Strips Strip See Rx Instructions .Route Qty: 100 3RF Rx Instructions: Test once a day. cetirizine [All Day Allergy (cetirizine)] 10 mg tablet 10 mg PO DAILY PRN (Reason: allergy/diaainess) Qty: 90 3RF ferrous sulfate 324 mg (65 mg iron) tablet,delayed release (DR/EC) 324 mg PO DAILY Qty: 90 3RF glimepiride 4 mg tablet 4 mg PO BID Qty: 180 3RF Rx Instructions: administer one tablet with breakfast and one with supper (DME) lancets [Microlet Lancet] Misc See Rx Instructions .Route Qty: 400 11RF Rx Instructions: As directed meclizine 25 mg tablet 25 mg PO .q 6 hr PRN (Reason: dizziness) Qty: 180 3RF metformin 1,000 mg tablet 1,000 mg PO BID Qty: 180 3RF pantoprazole 40 mg tablet,delayed release (DR/EC) 40 mg PO DAILY PRN (Reason: acid reflux) Qty: 90 2RF pioglitazone [Actos] 30 mg tablet 30 mg PO DAILY Qty: 90 1RF ropinirole 2 mg tablet See Rx Instructions .ROUTE .COMPLEX Qty: 90 3RF Dose Instruction: TAKE 1 TABLET AT BEDTIME Rx Instructions: TAKE 1 TABLET AT BEDTIME Januvia 100 mg tablet 100 mg PO DAILY Qty: 90 1RF valsartan 80 mg tablet 80 mg PO DAILY Qty: 90 3RF cholecalciferol (vitamin D3) 50 mcg (2,000 unit) capsule 50 mcg PO DAILY (DME) motorized wheelchair See Rx Instructions .Route .MEDSUPPLY Qty: 1 0RF Rx Instructions: As directed hydrochlorothiazide 25 mg tablet 25 mg PO QAM Qty: 14 0RF tamsulosin 0.4 mg capsule See Rx Instructions .ROUTE .COMPLEX Qty: 90 3RF Dose Instruction: TAKE 1 CAPSULE DAILY Rx Instructions: TAKE 1 CAPSULE DAILY metoclopramide HCl 10 mg tablet 10 mg PO BID Qty: 180 3RF Discharge Orders: Discharge ED (Routine); Ordered 07/10/25 Ordered By: Silvestre Gong Referrals: Mike Serrano DO [Primary Care Provider, Internal Medicine] - 4-7 days Discharge Diet: Advance as tolerated Discharge Activity: Resume usual activity Patient Instructions: COVID-19 (Coronavirus Disease 2019) (ED) Print Language: Kiswahili Coding Level of Care Code ED Screw Machine Operator Swiss Type for Payton Rg
[2025-07-10 05:53] LABS: Glucose Urine UA Negative (Normal); Nitrate Urine Negative (Negative); Specific Gravity, Urine 1.022 (1.005-1.030)
[2025-07-10 05:55] LABS: Add Urine Microscopic? YES
[2025-07-10 06:00] LABS: Respiratory Syncytial Virus Ce NEGATIVE (Negative)
[2025-07-10 06:04] LABS: SARS-CoV-2 PCR Positive (Negative)
--- NOTE | 2025-07-10 06:05 | ECG_ITS ---
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 Measurements Intervals [place] Rate: 64 P: -1 MT: 192 QRS: 43 QRSD: 92 T: 17 QT: 402 QTc: 415 Interpretive Statements SINUS RHYTHM NONSPECIFIC ST & T-WAVE ABNORMALITY Compared to ECG 07/10/2025 05:22:11 No significant changes Electronically Signed On 07-10-2025 17:39:47 [employer] by Sheila Waite M.D. [email or web address]
[2025-07-10 06:12] LABS: UA Slide Review UA Slide Review Perf
[2025-07-10] MEDS: FUROsemide 10 mg/mL SDV 4mL 40 MG IVP (06:13)
== END 2025-07-10 09:13 | disposition home or self-care (01) ==
PROVIDERS: Emergency Medicine; Emergency Provider Emergency Medicine; PCP Internal Medicine
DX: U07.1 COVID-19 (principal); Z11.52 Encounter for screening for COVID-19; Z79.82 Long term (current) use of aspirin; Z79.84 Long term (current) use of oral hypoglycemic drugs; Z87.891 Personal history of nicotine dependence; E78.5 Hyperlipidemia, unspecified; E11.22 Type 2 diabetes mellitus with diabetic chronic kidney disease; I12.9 Hypertensive chronic kidney disease with stage 1 through stage 4 chronic kidney disease, or unspecified chronic kidney disease; N18.30 Chronic kidney disease, stage 3 unspecified; Z86.73 Personal history of transient ischemic attack (TIA), and cerebral infarction without residual deficits
CPT/HCPCS: 71045; 80053; 81001; 83605; 83880; 84484; 85025; 87086; 87637; 93005; 99285; J1938

== ENCOUNTER 2025-07-19 10:20 | Emergency (ER) | payer MEDICARE, OTHER, SELFPAY ==
--- OUTSIDE RECORDS SUMMARY | 2025-03-19 11:00 | XMS_ITS ---
Author Organization [facility] Address [address] [facility] [place] [address] Care Team Providers Care Radius Grinder Name Role Phone Jesus Sarmiento Primary Care Provider DONNA Louise [phone] REASON FOR VISIT cysto w/ psa/ct Encounters Encounter Location Date Provider Diagnosis [facility] [address] [place] [facility] [place] [address] 03/19/2025 DONNA SERNA Plan Of Treatment No Information Progress Notes * Rufus BARON LDOB:1940 ( 85 yo M)Acc No.[id number]:03/19/2025 Patient: Rufus ALVAREZ Provider: Duarte Serna MD :1940 A ge:84 Y S ex:Male Date:03/19/2025 Address:[facility] Pcp:Jesus Sarmiento Subjective: * Chief Complaints: * 1 . Cysto w/ psa/ct. * Medical History: Objective: * Vitals: Assessment: Plan: * Treatment: * Billing Information: * Visit Code: * Procedure Codes: * Electronic signature of JONATHAN SERNA MD on 07/19/2025 at 10:34 AM TORTILLA MAKER Sign off status: Pending * Provider: Duarte Serna MD Date: 0 03/19/2025 Generated for Sophyi kathleen/Ottoniel/eTransmitting on: 1 09/19/2024 10:34 AM TORTILLA MAKER
[2025-07-19 10:20] VITALS: BP 122/78; PULSE 69; RESP 17; TEMP 36.9; O2SAT 94; BMI 29.7
--- NOTE | 2025-07-19 10:27 | ED_ITS ---
HPI - Male Genitourinary 2 General: Chief complaint: Urogenital-Male Stated complaint: blood in urine Time Seen by Provider: 07/19/25 10:21 History of Present Illness: 85-year-old man with a history of man ia, pancytopenia, anemia, restless leg syndrome, chronic kidney disease, BPH, hyperlipidemia, diabetes, gastroparesis, obesity, hypertension and stroke who [facility] the emergency room [facility] with concerns for hematuria and malaise. He has no specific complaints. He says he just does not feel well and hurts all over. He is not having any dysuria at this time. No vomiting. No abdominal pain. No altered mental status. No focal motor deficits. No fever. Related Data Home Medications ?Medication ?Instructions ?Recorded ?Confirmed cholecalciferol (vitamin D3) 50 50 mcg PO DAILY 01/03/25 mcg (2,000 unit) capsule Previous Rx's ?Medication ?Instructions ?Recorded motorized wheelchair #1 ea 10/25/22 aspirin 81 mg tablet,delayed 81 mg PO DAILY circulatio n #90 tabs 11/08/24 release atenolol 50 mg tablet See Rx Instructions .Route 0 11/08/24 .COMPLEX #90 tabs blood sugar diagnostic (Contour #100 ea 11/08/24 Next Test Strips) cetirizine 10 mg tablet (All Day 10 mg PO DAILY PRN Allergy (cetirizine)) allergy/diaainess #90 tabs ferrous sulfate 324 mg (65 mg 324 mg PO DAILY anemia # 90 tabs 11/08/24 iron) tablet,delayed release glimepiride 4 mg tablet 4 mg PO BID diabetes #180 ta bs 11/08/24 lancets (Microlet Lancet) #400 ea 11/08/24 meclizine 25 mg tablet 25 mg PO .q 6 hr PRN dizzine ss 11/08/24 #180 tabs metformin 1,000 mg tablet 1,000 mg PO BID diabetes #18 0 tabs 11/08/24 pantoprazole 40 mg tablet,delayed 40 mg PO DAILY PRN a anila reflux #90 11/08/24 release tabs pioglitazone 30 mg tablet (Actos) 30 mg PO DAILY diabe judy #90 tabs 11/08/24 ropinirole 2 mg tablet See Rx Instructions .Route 0 11/08/24 .COMPLEX #90 tabs sitagliptin phosphate 100 mg 100 mg PO DAILY diabetes #90 tabs 11/08/24 tablet (Januvia) valsartan 80 mg tablet 80 mg PO DAILY blood pressur e and 11/08/24 kidney protection #90 tabs hydrochlorothiazide 25 mg tablet 25 mg PO QAM #14 tabs 01/10/25 metoclopramide HCl 10 mg tablet 10 mg PO BID gastropar esis #180 02/18/25 tabs tamsulosin 0.4 mg capsule See Rx Instructions .Route 0 02/18/25 .COMPLEX #90 caps cefdinir 300 mg capsule 300 mg PO BID 10 days #20 ca ps 07/19/25 Allergies Allergy/AdvReac Type Severity Reaction Status Date / Time No Known Allergies Allergy Verified 01/03/25 10:18 Review of Systems 2 Narrative: Constitutional symptoms: Negative except as documented in HPI. Skin symptoms: Negative except as documented in HPI. Eye symptoms: Negative except as documented in HPI. ENMT symptoms: Negative except as documented in HPI. Respiratory symptoms: Negative except as documented in HPI. Cardiovascular symptoms: Negative except as documented in HPI. Gastrointestinal symptoms: Negative except as documented in HPI. Genitourinary symptoms: Negative except as documented in HPI. Musculoskeletal symptoms: Negative except as documented in HPI. Neurologic symptoms: Negative except as documented in HPI. Psychiatric symptoms: Negative except as documented in HPI. Endocrine symptoms: Negative except as documented in HPI. PFSH ED 2 PFSH: Medical History (Updated 07/19/25 @ 12:34 by Maria Antonia Cook MD) Debilitated patient Health counseling Orthostatic dizziness Behavior related to cognitive impairment Anemia Pancytopenia Restless legs syndrome (RLS) CKD stage 3 due to type 2 diabetes mellitus BPH loc w urin obs/LUTS Dyslipidemia associated with type 2 diabetes mellitus GERD (gastroesophageal reflux disease) Diabetic gastroparesis Rotator cuff dysfunction Cataract HTN (hypertension) with goal to be determined Stroke Diabetes type 2, controlled Surgical History H/O shoulder surgery H/O total knee replacement Social History Smoking and tobacco/nicotine status: former use of tobacco/nicotine Alcohol intake: never Substance/Drug Use: never Physical Exam 2 Narrative: EXAM NARRATIVE: General: Alert, no acute distress. Skin: Warm, dry. Patient appears somewhat pale Head: Normocephalic, atraumatic. Neck: Supple, trachea midline. Eye: Extraocular movements are intact. Ears, nose, mouth and throat: mucosa moist. Cardiovascular: Regular, Normal peripheral perfusion. Respiratory: Lungs are clear to auscultation, respirations are non-labored, breath sounds are equal, Symmetrical chest wall expansion. Gastrointestinal: Soft, Nontender, Non distended Musculoskeletal: Normal ROM, no deformity. Neurological: Alert and oriented, No focal neurological deficit observed. Psychiatric: Cooperative, appropriate mood & affect. Course 2 Vital Signs: Vital signs: Vital Signs Temperature 98.4 F 07/19/25 10:20 Pulse Rate 69 07/19/25 11:43 Respiratory Rate 20 H 07/19/25 12:28 Blood Pressure 150/83 07/19/25 11:43 Pulse Oximetry 96 07/19/25 12:28 Oxygen Delivery Me thod Room Air 07/19/25 11:43 MDM - Male Medical Decision Making Medical decision making Patient's reason for coming to the emergency room: Hematuria Social determinants: Retired, penitentiary patient I reviewed the patient's medical record. 85-year-old man with a history of dementia, pancytopenia, anemia, restless leg syndrome, chronic kidney disease, BPH, hyperlipidemia, diabetes, gastroparesis, obesity, hypertension and stroke I reviewed the patient's current home meds I do not see that the patient is on any anticoagulation. Alternate historians: None Differential diagnosis for complaint of hematuria including but not limited to and based on the above HPI, review of systems and physical exam: UTI / hemorrhagic cystitis, pyelonephritis, kidney stones, bladder cancer Orders placed to evaluate differential diagnosis based on the above differential, HPI and physical exam Lab Review: Laboratory results were reviewed and interpreted by myself the emergency room physician. No leukocytosis. Stable chronic anemia with a hemoglobin of 9.8. Slight worsening of his chronic renal insufficiency with a BUN and creatinine of 30 and 1.7. Urinary tract infection with hematuria. Nitrate positive. 11-20 whites. 1+ bacteria. CT of the abdomen pelvis without contrast: Soft tissue lesion of unknown origin of 1.3 x 2.1 cm in the bladder. Cystoscopy can be considered in the future. Right renal stone. Left renal lesion. MRI may need to be done for this to Assessment of risk: Level of risk: High risk patient. longterm patient with multiple comorbidities Hospitalization considerations: Patient being admitted for IV antibiotics and fluids. Reexamination: Patient remained stable. No increased work of breathing. No altered mental status. No focal motor deficits. Assessment and plan: Urinary tract infection Hematuria Malaise Dehydration Acute on chronic renal insufficiency Renal mass Concern for bladder mass ?Fluids and IV cefepime in the emergency room. - Discharged home - Discussed findings and plan with patient. Answered any questions. - All laboratory values were reviewed and interpreted personally by myself, the ER physician - All imaging was reviewed and interpreted personally by myself, the ER physician. - Evaluation and treatment of this problem were appropriate in the emergency setting Lab Data 07/19/25 10:40 07/19/25 10:40 Radiology Impressions Abdomen/Pelvis CT 07/19/25 11:23 IMPRESSION: 1. Indeterminate soft tissue density lesion in the bladder on the right side 1.3 x 2.1 cm. Neoplasm can not be excluded. Correlation with cystoscopy finding may be helpful. 2. Mucous plugging in the right lower lobe. 3. Left renal indeterminate 1 x 0.9 cm hyperdense lesion. MRI of the kidney without and with contrast for further evaluation is advised. 4. Right renal 3 mm stone. 5. No obstructive uropathy. 6. Large hiatal hernia. 7. Cholelithiasis 8. Sigmoid and descending colon diverticulosis. 9. Additional findings as described. COMMENTS: Consistent with the [employer]'s Incidental Findings Committee white paper ([employer] 2018): Any incidental renal lesion less than 1 cm or classified as too small to characterize, or any incidental cystic renal lesion characterized as simple-appearing, is likely benign. No follow-up imaging is recommended for these lesions per consensus recommendations based on imaging criteria. Laboratory Results WBC 4.43 10^3/uL (3.29-11.43) 07/19/25 10:40 RBC 3.64 10^6/uL (3.85-5.65) L 07/19/25 10:40 Hgb 9.80 g/dL (11.27-16.99) L 07/19/25 10:40 Hct 31.9 % (37-53) L 07/19/25 10:40 MCV 87.6 fl (82-101) 07/19/25 10:40 MCH 26.9 pg (27-33) L 07/19/25 10:40 MCHC 30.7 g/dL (30-55) 07/19/25 10:40 RDW 13.6 % (12.1-15.1) 07/19/25 10:40 Plt Count 161 10^3/cmm (157-399) 07/19/25 10:40 MPV 9.9 fL (7.4-10.4) 07/19/25 10:40 Neut % (Auto) 61.7 % 07/19/25 10:40 Lymph % (Auto) 19.0 % 07/19/25 10:40 [place] % (Auto) 15.1 % 07/19/25 10:40 Eos % (Auto) 2.9 % 07/19/25 10:40 Baso % (Auto) 0.2 % 07/19/25 10:40 Neut # (Auto) 2.73 10^3/uL (1.8-7.7) 07/19/25 10:40 Lymph # (Auto) 0.8 10^3/uL (0.8-4.8) 07/19/25 10:40 [place] # (Auto) 0.7 10^3/uL (0.2-0.9) 07/19/25 10:40 Eos # (Auto) 0.1 10^3/uL (0.0-0.8) 07/19/25 10:40 Baso # (Auto) 0.0 10^3/uL (0.0-0.1) 07/19/25 10:40 Nucleated RBC % (auto) 0 % 07/19/25 10:40 Nucleated RBCs # 0.0 /100WBC 07/19/25 10:40 PT 13.50 SECONDS (12.1-14.9) 07/19/25 10:40 INR 0.96 (0.8-1.2) 07/19/25 10:40 APTT 25.0 SECONDS (23.9-36.7) 07/19/25 10:40 Sodium 137 mmol/L (136-145) 07/19/25 10:40 Potassium 4.3 mmol/L (3.5-5.1) 07/19/25 10:40 Chloride 102 mmol/L (98-107) 07/19/25 10:40 Carbon Dioxide 23 mmol/L (22-29) 07/19/25 10:40 Anion Gap 16.3 (5-19) 07/19/25 10:40 BUN 30 mg/dL (8-23) H 07/19/25 10:40 Creatinine 1.7 mg/dL (0.7-1.2) H 07/19/25 10:40 GFR Calculation Not Reportable 07/19/25 10:40 Glucose 146 mg/dL (65-115) H 07/19/25 10:40 Calculated Osmolality 293 mOsm/kg (285-295) 07/19/25 10:40 Lactic Acid 1.4 mmol/L (0.5-2.2) 07/19/25 10:40 Calcium 9.3 mg/dL (8.5-10.5) 07/19/25 10:40 Total Bilirubin 0.5 mg/dL (0.15-1.2) 07/19/25 10:40 AST 19 U/L (0-40) 07/19/25 10:40 ALT 11 U/L (0-41) 07/19/25 10:40 Alkaline Phosphatase 51 U/L (40-130) 07/19/25 10:40 C-Reactive Protein 6.2 mg/L (0.0-4.9) H 07/19/25 10:40 Total Protein 5.9 g/dL (6.6-8.7) L 07/19/25 10:40 Albumin 3.9 g/dL (3.5-5.2) 07/19/25 10:40 Globulin 2.0 g/dL (1.3-4.6) 07/19/25 10:40 Urine Color Red (Yellow) A 07/19/25 10:48 Urine Appearance Turbid (CLEAR) A 07/19/25 10:48 Urine pH 5.0 (5-7) 07/19/25 10:48 Ur Specific [place] 1.021 (1.005-1.030) 07/19/25 10:48 Urine Protein 2+ (Negative) A 07/19/25 10:48 Urine Glucose (UA) Negative (Normal) 07/19/25 10:48 Urine Ketones Negative (Negative) 07/19/25 10:48 Urine Blood 2+ (Negative) A 07/19/25 10:48 Urine Nitrate Positive (Negative) A 07/19/25 10:48 Urine Bilirubin 2+ (Negative) H 07/19/25 10:48 Urine Urobilinogen 0.2 mg/dL (Negative) 07/19/25 10:48 Ur Leukocyte Esterase 2+ (Negative) A 07/19/25 10:48 Urine RBC >100 /hpf (0-2) H 07/19/25 10:48 Urine WBC 11-20 /hpf (0-5) H 07/19/25 10:48 Ur Squamous Epith Cells 6-10 /hpf (0-5) 07/19/25 10:48 Amorphous Sediment Not Reportable 07/19/25 10:48 Urine Bacteria 1+ /hpf (NONE) H 07/19/25 10:48 Hyaline Casts 3.91 /lpf 07/19/25 10:48 All radiology interpretation(s) finalized by discharge Discharge Plan Discharge Patient Disposition: Home Clinical Impression: Urinary tract infection, Acute on chronic renal insufficiency, Hematuria, Malaise, Bladder mass, Dehydration Condition: Stable Prescriptions: New cefdinir 300 mg capsule 300 mg PO BID 10 Days Qty: 20 0RF No Action aspirin 81 mg tablet,delayed release (DR/EC) 81 mg PO DAILY Qty: 90 3RF atenolol 50 mg tablet See Rx Instructions .ROUTE .COMPLEX Qty: 90 3RF Dose Instruction: TAKE 1 TABLET DAILY FOR BLOOD PRESSURE Rx Instructions: TAKE 1 TABLET DAILY FOR BLOOD PRESSURE (DME) Contour Next Test Strips Strip See Rx Instructions .Route Qty: 100 3RF Rx Instructions: Test once a day. cetirizine [All Day Allergy (cetirizine)] 10 mg tablet 10 mg PO DAILY PRN (Reason: allergy/diaainess) Qty: 90 3RF ferrous sulfate 324 mg (65 mg iron) tablet,delayed release (DR/EC) 324 mg PO DAILY Qty: 90 3RF glimepiride 4 mg tablet 4 mg PO BID Qty: 180 3RF Rx Instructions: administer one tablet with breakfast and one with supper (DME) lancets [Microlet Lancet] Misc See Rx Instructions .Route Qty: 400 11RF Rx Instructions: As directed meclizine 25 mg tablet 25 mg PO .q 6 hr PRN (Reason: dizziness) Qty: 180 3RF metformin 1,000 mg tablet 1,000 mg PO BID Qty: 180 3RF pantoprazole 40 mg tablet,delayed release (DR/EC) 40 mg PO DAILY PRN (Reason: acid reflux) Qty: 90 2RF pioglitazone [Actos] 30 mg tablet 30 mg PO DAILY Qty: 90 1RF ropinirole 2 mg tablet See Rx Instructions .ROUTE .COMPLEX Qty: 90 3RF Dose Instruction: TAKE 1 TABLET AT BEDTIME Rx Instructions: TAKE 1 TABLET AT BEDTIME Januvia 100 mg tablet 100 mg PO DAILY Qty: 90 1RF valsartan 80 mg tablet 80 mg PO DAILY Qty: 90 3RF cholecalciferol (vitamin D3) 50 mcg (2,000 unit) capsule 50 mcg PO DAILY (DME) motorized wheelchair See Rx Instructions .Route .MEDSUPPLY Qty: 1 0RF Rx Instructions: As directed hydrochlorothiazide 25 mg tablet 25 mg PO QAM Qty: 14 0RF tamsulosin 0.4 mg capsule See Rx Instructions .ROUTE .COMPLEX Qty: 90 3RF Dose Instruction: TAKE 1 CAPSULE DAILY Rx Instructions: TAKE 1 CAPSULE DAILY metoclopramide HCl 10 mg tablet 10 mg PO BID Qty: 180 3RF Discharge Orders: Discharge ED (Routine); Ordered 07/19/25 Ordered By: Maria Antonia Cook Referrals: Darren Roberts [Referring, Urology] - 7-10 days Referral Note: Please follow-up with Dr. Roberts or the urologist of your choosing Mike Serrano DO [Primary Care Provider, Internal Medicine] Discharge Diet: Usual diet Discharge Activity: Increase activity as tolerated Patient Instructions: Urinary Tract Infection in Older Adults (ED), Opioid Safety, Pain Management, Patient Portal & [place] Instructions Activity Restrictions/Additional Instructions: You will need to follow-up with urology to evaluate your bladder in the near future. Likely will need cystoscopy because there was concern for a small lesion in your bladder. Also your doctor needs to consider an MRI To look at your kidney because there was concern for a lesion there as well. Thank you for choosing [facility] for your healthcare needs today. You have been screened and evaluated and felt safe for discharge. Health conditions do change or evolve sometimes and as such it is important that you follow up with your Primary Doctor to be re checked, 3-5 days is a general good time frame for follow up. You are always welcome to return to the ED for re assessment if your symptoms are worsening or you have new concerns. (Please note that included in your discharge packet is information concerning opioid safety and pain management. 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
--- OUTSIDE RECORDS SUMMARY | 2025-07-19 10:34 | XMS_ITS | Encounter Summary ---
Author Organization [facility], [facility] Address [address] [place] [address] Phone Care Team Providers Care Grades 1 Through 6 Teacher Name Role Phone Jay Tineo MD Primary Care Provider [phone] Encounter Details Date Type Department Care Team (Late st Contact Info) Description 08/03/2021 Orders Only [facility] [address] [place] [address] Chronic kidney disease stage 3A [...] (HCC) documented in this encounter Care Teams Grades 1 Through 6 Teacher Relationship Specialty Start Date End Date Jay Tineo MD [address] [place] [address] PCP - General Family Medicine 08/04/21 documented as of this encounter
--- OUTSIDE RECORDS SUMMARY | 2025-07-19 10:34 | XMS_ITS | Data Portability ---
Author Organization [facility] - Malena Doe [facility] Address [address] [address] [place] [address] Assessment No assessment recorded. Plan of Treatment [...] By Organization Details Last Modified Time 04/10/2025 [id number] Planning to work with therapy with goal of returning home. d/c glimepiride. [email or web address] Not available 04/10/2025 15:00:55 05/05/2025 [id number] Doing well, mood good. Vitals stable. [email or web address] Not available 05/05/2025 14:25:00 05/26/2025 [id number] Fall over the weekend, no injuries. Does c/o abd pain, will stop iron and vit D to see if abd pain improves. [email or web address] Not available 05/26/2025 14:42:40 06/23/2025 [id number] Blood pressure and heart rate controlled. Mood good, doing well. [email or web address] Not available 06/23/2025 12:55:44 07/03/2025 [id number] Worsening RLS symptoms at night, will increase requip to 4mg at hs. [email or web address] Not available 07/03/2025 12:12:27 Reason for Referral None Reported. Results Created Date Observation Date Name Description Value Unit Range Abnormal Flag Note LastModifiedBy Organization Detail LastModifiedTime Result Notes None recorded. Problems Name Problem SNOMED Code Status Onset Date Resolution Date Notes Provider Name and Address Organization Details Recorded Time Benign essential hypertensi on 5353654 Active 2002 Hyperte nsion; 003 2:28PM by Jeremie Gordillo MD, Office Visit; Promote d; acuity set as *; Not Available [facility] 3 03:14:21 Arthritis 5964468 Active 2002 Arthrit is; 003 2:29PM by Jeremie Gordillo MD, Office Visit; Promote d; acuity set as *; Not Available [facility] 3 03:14:22 Chronic kidney disease due to type 2 diabetes mellitus 788437768675 [facility] 14:58:38 Chronic kidney disease stage 3 418436590 Active 2024 [facility] 14:58:38 Benign prostatic hyperplasi a 001629567 Active 2024 [facility] 5 14:58:39 Iron deficiency anemia 94685104 Active 2024 NIKITA VELASQUEZ [facility] 5 14:58:41 Problem Notes None recorded. [...] /min 98.6 [degF] 96 % 144/68 mm[Hg] [facility] 5 14:23:45 Date Recorded Body weight Heart rate Respiratory rate Body temperature Oxygen saturation Systolic And Diastolic Provider Name and Address Organization Details Last Updated DateTime 5 080609. 28 g 70 /min 18 /min 97.9 [degF] 92 % 136/68 mm[Hg] [facility] 5 14:39:07 Date Recorded Body weight Heart rate Respiratory rate Body temperature Oxygen saturation Systolic And Diastolic Provider Name and Address Organization Details Last Updated DateTime 5 000222. 1 g 66 /min 18 /min 96.8 [degF] 94 % 154/72 mm[Hg] NIKITA [facility] 5 12:53:45 Date Recorded Body weight Heart rate Respiratory rate Body temperature Oxygen saturation Systolic And Diastolic Provider Name and Address Organization Details Last Updated DateTime 5 262688. 88 g 72 /min 21 /min 96.9 [degF] 96 % 130/78 mm[Hg] NIKITA [facility] 5 12:08:49 Social History None recorded. Functional Status None recorded. Mental Status None recorded. Family History Nothing Reported. Medical History No medical history recorded. Immunizations Vaccine Type Date Status Note Provider Nam e and Address Organization Details Recorded Time Tdap 1 completed Not Available [facility] 07/03/2025 11:46:10 Influenza, high-dose, trivalent, PF 5 completed Not Available [facility] 07/03/2025 11:46:10 Pneumococcal conjugate PCV 13 5 completed Not Available [facility] 07/03/2025 11:46:10 Influenza, high-dose, trivalent, PF 6 completed Not Available [facility] 07/03/2025 11:46:10 pneumococcal polysaccharide PPV23 7 completed Not Available [facility] 07/03/2025 11:46:10 Influenza, high-dose, trivalent, PF 7 completed Not Available [facility] 07/03/2025 11:46:10 Influenza, high-dose, trivalent, PF 8 completed Not Available [facility] 07/03/2025 11:46:10 Tdap 9 completed Not Available [facility] 07/03/2025 11:46:10 Influenza, split virus, quadrivalent, preservative 9 completed Not Available [facility] 07/03/2025 11:46:10 zoster recombinant 0 completed Not Available [facility] 07/03/2025 11:46:10 Influenza, recombinant, quadrivalent, PF 0 completed Not Available [facility] 07/03/2025 11:46:10 COVID-19, mRNA, LNP-S, PF, 30 mcg/0.3 mL dose 1 completed Not Available [facility] 07/03/2025 11:46:10 COVID-19, mRNA, LNP-S, PF, 30 mcg/0.3 mL dose 1 completed Not Available [facility] 07/03/2025 11:46:10 zoster recombinant 1 completed Not Available [facility] 07/03/2025 11:46:10 COVID-19, mRNA, LNP-S, PF, 30 mcg/0.3 mL dose 1 completed Not Available [facility] 07/03/2025 11:46:10 Influenza, adjuvanted, quadrivalent, PF 2 completed Not Available [facility] 07/03/2025 11:46:10 COVID-19, mRNA, LNP-S, bivalent, PF, 30 mcg/0.3 mL dose 2 completed Not Available [facility] 07/03/2025 11:46:10 Influenza, high-dose, quadrivalent, PF 3 completed Not Available [facility] 07/03/2025 11:46:10 Tdap 3 completed Not Available [facility] 07/03/2025 11:46:10 Influenza, split virus, trivalent, PF 4 completed Not Available [facility] 07/03/2025 11:46:10 Influenza, split virus, trivalent, preservative 3 completed Not Available [facility] 02/25/2023 02:31:40 Past Encounters Encounter ID Performer Location Encounter Start Date Encounter Closed Date Diagnosis/Indication Diagnosis SNOMED-CT Code Diagnosis ICD10 Code Diagnosis IMO Codes Diagnosis Note [id number] Mike Serrano DO [facility] ([facility]) [address] [place] [phone] 5 04/10/2025 12:59:18 04/15/2025 12:01:05 Benign essential hypertension 1852194 I10 Chronic ki dney disease due to type 2 diabetes mellitus 4468256065 08 E11.22 8001104373 Chronic ki dney disease stage 3 981477733 N18.30 0693715240 Benign pro static hyperplasia 910314404 N40.1 18036872 Iron defic iency anemia 16411372 D50.8 [id number] Mike Serrano DO [facility] ([facility]) [address] [place] [phone] 5 05/05/2025 12:44:01 05/07/2025 07:51:52 Benign essential hypertension 6366391 I10 Benign pro static hyperplasia 373528322 N40.1 62476364 Arthritis 6267049 M19.90 Chronic ki dney disease stage 3 072889109 N18.30 1193780557 Chronic ki dney disease due to type 2 diabetes mellitus 3334264830 08 E11.22 6553816479 Iron defic iency anemia 76536794 D50.8 0587927 [id number] Mike Serrano DO [facility]) [address] [place] [address]73 5 05/26/2025 13:52:35 05/28/2025 08:37:05 History of fall 091051988 Z91.81 2202298 Benign ess ential hypertension 2070702 I10 Chronic ki dney disease due to type 2 diabetes mellitus 3678044435 08 E11.22 0667411199 Iron defic iency anemia 91691658 D50.8 4317339 [id number] Mike Serrano DO [facility] ([facility]) [address] [place] [phone] 5 06/23/2025 12:00:18 07/01/2025 14:06:15 Benign essential hypertension 9908813 I10 Benign pro static hyperplasia 012220579 N40.1 16532251 Arthritis 8618682 M19.90 Chronic ki dney disease stage 3 668200435 N18.30 6274373903 Chronic ki dney disease due to type 2 diabetes mellitus 8912926986 08 E11.22 5235067774 Iron defic iency anemia 51956912 D50.8 7296277 [id number] Mike Serrano [facility] ([facility]) [address] [place] [phone] 5 07/03/2025 11:45:59 07/14/2025 09:26:29 Benign essential hypertension 7251747 I10 Arthritis 0216316 M19.90 Chronic ki dney disease stage 3 999483518 N18.30 2417167034 Chronic ki dney disease due to type 2 diabetes mellitus 5956566918 08 E11.22 2422999392 Iron defic iency anemia 85524817 D50.8 5623657 Benign pro static hyperplasia 344870082 N40.1 10588154 Health Concerns Section Related Observation LastModified by Organization Detai ls LastModified Time None Recorded Concern Status LastModified by Organization Details LastModified Time None Recorded Advance Directives Directive None Recorded Payers Insurance Date Sequence Insurance Name Policy Number Policy Elliott Covered Member ID Elliott Member ID Guarantor Name 07/01/2025 [place] [facility] Rufus Gonsalez [id number] Rufus Gonsalez 07/03/2025 2 [place] Rufus Gonsalez [id number] Rufus Gonsalez 07/03/2025 1 [place] [facility] Rufus Gonsalez [id number] Rufus Gonsalez 07/03/2025 [place] - [facility] (MEDICARE) Rufus Gonsalez [id number] Rufus Gonsalez 05/16/2025 2 UNSPECIFIED REMIT PAYOR Rufus Gonsalez 05/18/2025 2 UNSPECIFIED REMIT PAYOR Rufus Gonsalez Notes Date Note Type Note Provider Name and Address Organization Details Recorded Time 5 text/html HypertensionReported by PatientHPIFor severity, patient reportsgrade 1 (130-139/80-89). For duration, patient reportshas noted for years. For alleviating factors, patient reportsmedication.ROS as noted in the HPI new admit to SNF for theapy. Mike Serrano, DO [address] [place] [address], [phone], [facility] 12:09:37 5 text/html HypertensionReported by PatientHPIFor severity, patient reportsgrade 1 (130-139/80-89). For duration, patient reportshas noted for years. For alleviating factors, patient reportsmedication.ROS as noted in the HPI no complaints per staff or patient. Mike Serrano DO [address] [place] [address], [phone], [facility] 05/05/2025 15:09:09 5 text/html HypertensionReported by PatientHPIFor severity, patient reportsgrade 1 (130-139/80-89). For duration, patient reportshas noted for years. For alleviating factors, patient reportsmedication.ROS as noted in the HPI fall over the weekend, no injuries. Mike Serrano DO [address] [place] [address], [phone], [facility] 05/27/2025 15:03:54 5 text/html HypertensionReported by PatientHPIFor severity, patient reportsgrade 1 (130-139/80-89). For duration, patient reportshas noted for years. For alleviating factors, patient reportsmedication.ROS as noted in the HPI no complaints per staff or patient. Mike Serrano DO [address] [place] [address], [phone], [facility] 06/29/2025 16:18:04 5 text/html HypertensionReported by PatientHPIFor severity, patient reportsgrade 1 (130-139/80-89). For duration, patient reportshas noted for years. For alleviating factors, patient reportsmedication.ROS as noted in the HPI c/o worsening RLS symptoms. Mike Serrano DO [address] [place] [address], [phone], [facility] 07/11/2025 16:35:50
--- OUTSIDE RECORDS SUMMARY | 2025-07-19 10:34 | XMS_ITS | Continuity of Care Document ---
Author Organization [facility], LShawLLelo, [facility] ([facility]) Address [address] [facility] [place] [address] Assessment No assessment recorded. Plan of Treatment [...] By Organization Details Last Modified Time 06/23/2025 9332775 Blood pressure and heart rate controlled. Mood good, doing well. [email or web address] Not available 06/23/2025 12:55:44 Reason for Referral None Reported. Problems Name Problem SNOMED Code Status Onset Date Resolution Date Notes Provider Name and Address Organization Details Recorded Time Benign essential hypertensi on 0677422 Active 2002 Hyperte nsion; 003 2:28PM by Jeremie Gordillo MD, Office Visit; Promote d; acuity set as *; Not Available [facility] 3 03:14:21 Arthritis 7340072 Active 2002 Arthrit is; 003 2:29PM by Jeremie Gordillo MD, Office Visit; Promote d; acuity set as *; Not Available [facility] 3 03:14:22 Chronic kidney disease due to type 2 diabetes mellitus 457969827786 Active 2024 [facility] 5 14:58:38 Chronic kidney disease stage 3 854943744 Active 2024 [facility] 5 14:58:38 Benign prostatic hyperplasi a 772331571 Active [facility] 5 14:58:39 Iron deficiency anemia 02924608 Active 2024 [facility] 5 14:58:41 Problem Notes None recorded. [...] Address Organization Details Last Updated DateTime 5 225787. 1 g 66 /min 18 /min 96.8 [degF] 94 % 154/72 mm[Hg] NIKITA VELASQUEZ [facility] 5 12:53:45 Social History None recorded. Functional Status None recorded. Mental Status None recorded. Family History Nothing Reported. Medical History No medical history recorded. Immunizations Vaccine Type Date Status Note Provider Nam e and Address Organization Details Recorded Time Tdap 1 completed Not Available [facility] 07/03/2025 11:46:10 Influenza, high-dose, trivalent, PF 5 completed Not Available [facility] 07/03/2025 11:46:10 Pneumococcal conjugate PCV 13 5 completed Not Available [facility] 07/03/2025 11:46:10 Influenza, high-dose, trivalent, PF 6 completed Not Available [facility] 07/03/2025 11:46:10 pneumococcal polysaccharide PPV23 7 completed Not Available [facility] 07/03/2025 11:46:10 Influenza, high-dose, trivalent, PF 7 completed Not Available [facility] 07/03/2025 11:46:10 Influenza, high-dose, trivalent, PF 8 completed Not Available [facility] 07/03/2025 11:46:10 Tdap 9 completed Not Available [facility] 07/03/2025 11:46:10 Influenza, split virus, quadrivalent, preservative 9 completed Not Available [facility] 07/03/2025 11:46:10 zoster recombinant 0 completed Not Available [facility] 07/03/2025 11:46:10 Influenza, recombinant, quadrivalent, PF 0 [...] mcg/0.3 mL dose 1 completed Not Available [facility] 07/03/2025 11:46:10 Influenza, adjuvanted, quadrivalent, PF 2 completed Not Available [facility] 07/03/2025 11:46:10 COVID-19, mRNA, LNP-S, bivalent, PF, 30 mcg/0.3 mL dose 2 completed Not Available [facility] 07/03/2025 11:46:10 Influenza, high-dose, quadrivalent, PF 3 completed Not Available [facility] 07/03/2025 11:46:10 Tdap 3 completed Not Available [facility] 07/03/2025 11:46:10 Influenza, split virus, trivalent, PF 4 completed Not Available [facility] 07/03/2025 11:46:10 Influenza, split virus, trivalent, preservative 3 completed Not Available [facility] 02/25/2023 02:31:40 Past Encounters Encounter ID Performer Location Encounter Start Date Encounter Closed Date Diagnosis/Indication Diagnosis SNOMED-CT Code Diagnosis ICD10 Code Diagnosis IMO Codes Diagnosis Note [id number] Mike Serrano DO [facility] ([facility]) [address] [place] [phone] 05/26/2025 13:52:35 05/28/2025 08:37:05 History of fall 475005710 Z91.81 8858521 Benign ess ential hypertension 4404335 I10 Chronic ki dney disease due to type 2 diabetes mellitus 1805514847 08 E11.22 1629516622 Iron defic iency anemia 86541425 D50.8 3073133 [id number] Mike Serrano DO [facility] ([facility]) [address] [place] [address] 06/23/2025 12:00:18 07/01/2025 14:06:15 Benign essential hypertension 0630133 I10 Benign pro static hyperplasia 798844848 N40.1 29394250 Arthritis 2427210 M19.90 Chronic ki dney disease stage 3 114295802 N18.30 9967222149 Chronic ki dney disease due to type 2 diabetes mellitus 0580064068 08 E11.22 5787211647 Iron defic iency anemia 77240249 D50.8 8521709 Health Concerns Section Related Observation LastModified by Organization Detai ls LastModified Time None Recorded Concern Status LastModified by Organization Details LastModified Time None Recorded Payers Encounter Date Sequence Insurance Name Policy Number Policy Elliott Covered Member ID Elliott Member ID Guarantor Name 06/23/2025 1 [place] [facility] Rufus Gonsalez [id number] Rfuus Gonsalez 06/23/2025 2 [place] Rufus Gonsalez [id number] Rufus Gonsalez Notes Date Note Type Note Provider Name and Address Organization Details Recorded Time 5 text/html HypertensionReported by PatientHPIFor severity, patient reportsgrade 1 (130-139/80-89). For duration, patient reportshas noted for years. For alleviating factors, patient reportsmedication.ROS as noted in the HPI no complaints per staff or patient. Mike Serrano DO [address] [place] [address], [phone], [facility] 06/29/2025 16:18:04
--- OUTSIDE RECORDS SUMMARY | 2025-07-19 10:34 | XMS_ITS | Continuity of Care Document ---
Author Organization [facility], Malena, [facility] ([facility]) Address [address] [place] [address] Assessment No assessment recorded. Plan of Treatment [...] By Organization Details Last Modified Time 05/26/2025 [id number] Fall over the weekend, no injuries. Does c/o abd pain, will stop iron and vit D to see if abd pain improves. [email or web address] Not available 05/26/2025 14:42:40 Reason for Referral None Reported. Results Created Date Observation Date Name Description Value Unit Range Abnormal Flag Note LastModifiedBy Organization Detail LastModifiedTime Result Notes None recorded. Problems Name Problem SNOMED Code Status Onset Date Resolution Date Notes Provider Name and Address Organization Details Recorded Time Benign essential hypertensi on 7680143 Active 2002 Hyperte nsion; 003 2:28PM by Jeremie Gordillo MD, Office Visit; Promote d; acuity set as *; Not Available [facility] 3 03:14:21 Arthritis 0644826 Active 2002 Arthrit is; 003 2:29PM by Jeremie Gordillo MD, Office Visit; Promote d; acuity set as *; Not Available [facility] 3 03:14:22 Chronic kidney disease due to type 2 diabetes mellitus 963264828077 Active 2024 NIKITA adan, [facility], Malena 14:58:38 Chronic kidney disease stage 3 653620201 [facility]. 14:58:38 Benign prostatic hyperplasi a 637943953 Active 2024 [facility] [place] 5 14:58:39 Iron deficiency anemia 83751296 Active 2024 [facility] [place] 14:58:41 Problem Notes None recorded. [...] Address Organization Details Last Updated DateTime 5 804579. 28 g 70 /min 18 /min 97.9 [degF] 92 % 136/68 mm[Hg] NIKITA VELASQUEZ [facility] 5 14:39:07 Social History None recorded. Functional Status None recorded. Mental Status None recorded. Family History Nothing Reported. Medical History No medical history recorded. Immunizations Vaccine Type Date Status Note Provider Nam e and Address Organization Details Recorded Time Tdap [address] [facility] 07/03/2025 11:46:10 Influenza, high-dose, trivalent, PF [address] [facility] 07/03/2025 11:46:10 Pneumococcal conjugate PCV [address] [facility] 07/03/2025 11:46:10 Influenza, high-dose, trivalent, PF 6 completed Not Available [facility] 07/03/2025 11:46:10 pneumococcal polysaccharide PPV23 [address] [facility] 07/03/2025 11:46:10 Influenza, high-dose, trivalent, PF 7 completed Not Available [facility] 07/03/2025 11:46:10 Influenza, high-dose, trivalent, PF 8 completed Not Available [facility] 07/03/2025 11:46:10 Tdap 9 completed Not Available [facility] 07/03/2025 11:46:10 Influenza, split virus, quadrivalent, preservative 9 completed Not Available [facility] 07/03/2025 11:46:10 zoster recombinant 0 completed [facility] 11:46:10 Influenza, recombinant, quadrivalent, PF 0 completed [facility] Available [facility] 07/03/2025 11:46:10 COVID-19, mRNA, LNP-S, PF, 30 mcg/0.3 mL dose 1 completed Not Available [facility] 07/03/2025 11:46:10 COVID-19, mRNA, LNP-S, PF, 30 mcg/0.3 mL dose 1 completed Not Available [facility] 07/03/2025 11:46:10 zoster recombinant 1 completed Not Available [facility] 07/03/2025 11:46:10 COVID-19, mRNA, LNP-S, PF, 30 mcg/0.3 mL dose 1 completed Not Available [facility] 07/03/2025 11:46:10 Influenza, adjuvanted, quadrivalent, PF 2 completed Not Available [facility] 07/03/2025 11:46:10 COVID-19, mRNA, LNP-S, bivalent, PF, 30 mcg/0.3 mL dose 2 completed Not Available [facility] 07/03/2025 11:46:10 Influenza, high-dose, quadrivalent, PF 3 completed [facility] Available [facility]25 11:46:10 Tdap 3 completed Not Available [facility] 07/03/2025 11:46:10 Influenza, split virus, trivalent, PF 4 completed Not Available [facility] 07/03/2025 11:46:10 Influenza, split virus, trivalent, preservative [address] [facility] 02/25/2023 02:31:40 Past Encounters Encounter ID Performer Location Encounter Start Date Encounter Closed Date Diagnosis/Indication Diagnosis SNOMED-CT Code Diagnosis ICD10 Code Diagnosis IMO Codes Diagnosis Note [id number] Mike Serrano DO [facility] [address] [place] [address] 05/05/2025 12:44:01 05/07/2025 07:51:52 Benign essential hypertension 4706599 I10 Benign pro static hyperplasia 915336226 N40.1 12447308 Arthritis 5922099 M19.90 Chronic ki dney disease stage 3 163155949 N18.30 2661313157 Chronic ki dney disease due to type 2 diabetes mellitus 7456343054 08 E11.22 8515602161 Iron defic iency anemia 46295391 D50.8 6156471 [id number] Mike Serrano DO [facility] [address] [place] [address] 05/26/2025 13:52:35 05/28/2025 08:37:05 History of fall 476119180 Z91.81 [id number] Benign ess ential hypertension 0324074 I10 Chronic ki dney disease due to type 2 diabetes mellitus 3934419516 08 E11.22 2949253419 Iron defic iency anemia 60153370 D50.8 2784817 Health Concerns Section Related Observation LastModified by Organization Detai ls LastModified Time None Recorded Concern Status LastModified by Organization Details LastModified Time None Recorded Payers Encounter Date Sequence Insurance Name Policy Number Policy Elliott Covered Member ID Elliott Member ID Guarantor Name 05/26/2025 1 [place]ARE [place]: [facility] Rufus Gonsalez [id number] Rufus Gonsalez Notes Date Note Type Note Provider Name and Address Organization Details Recorded Time text/html HypertensionReported by PatientHPIFor severity, patient reportsgrade 1 (130-139/80-89). For duration, patient reportshas noted for years. For alleviating factors, patient reportsmedication.ROS as noted in the HPI fall over the weekend, no injuries. Mike Serrano DO [address] [place] [address], [phone], [facility], Malena 05/27/2025 15:03:54
--- OUTSIDE RECORDS SUMMARY | 2025-07-19 10:34 | XMS_ITS | Patient Health Record ---
Author Organization [facility], [facility] Address [address] [place] [address] Care Team Providers Care Measurement Analyst Name Role Phone Torsten Jesus Primary Care Provider DONNA Louise Unavailable [phone] SHARONDA ISABELLE Unavailable [phone] Allergies No Known Allergies Results Component Value Reference Range Notes Urinalysis, Routine Reviewed date:01/23/2025 01:13:16 PM Interpretation: Performing Lab: Notes/Report: Urine-Color dark yellow Appearance slightly cloudy Glucose - Bilirubin - Ketones - Specific [place] 1.025 Occult Blood 3+ pH 6.0 Urine [...] day; Duration: 90 days *Pick strength-form from 2Duche for eRX* Active Glimepiride 2 MG 1 [...] day; Duration: 90 days *Pick strength-form from 2Duche for eRX* Active metFORMIN HCl 1000 MG 1 tablet with a meal Orally BID; Duration: 30 day(s) Active Aspirin 81 81 MG 1 tablet Orally Once a day; Duration: 30 day(s) *Pick strength-form from 2Duche for eRX* 08/04/2020 Active Stool Softener 100 MG 1 capsule as needed Orally Once a day Active traMADol HCl 50 MG 1 tablet as needed Orally bid; Duration: 30 days 08/03/2021 Active Immunizations Vaccine Route Administration Date Status Comme nts COVID-19 Vaccine (Moderna) Dose #2 Unknown 09/25/2020 Administered Immunization Given by from source eCW:: COVID-19 Vaccine (Pfizer) Dose #1 Unknown 08/28/2020 Administered Immunization Given by from source eCW:: Flucelvax IM Intramuscular 05/25/2021 Administered Influenza (whole), CPT 62949 Inactive Unknown 04/30/2017 Administered Influenza (whole), CPT 97099 Inactive Unknown 04/30/2018 Administered Pneumococcal polysaccharide PPV23 Unknown 2017 Administered Immunization [...] Status W/U Status Risk Notes Problem Nocturia (469916419) Nocturia (R35.1) Active confirmed Problem Essential hypertension (36537867) Essential hypertension (I10) Active confirmed Problem Osteoarthritis (292621128) Osteoarthritis, unspecified osteoarthritis type, unspecified site (M19.90) Active confirmed Problem Lower urinary tract symptoms due to benign prostatic hypertrophy (46198135331801) Benign prostatic hyperplasia with lower urinary tract symptoms (N40.1) Active confirmed Problem Iron deficiency anemia (85323703) Iron deficiency anemia, unspecified iron deficiency anemia type (D50.9) Active confirmed Problem Dysphagia (34602429) Pharyngoesophageal dysphagia (R13.14) Active confirmed Problem History of malignant neoplasm of prostate (075897594) History of prostate cancer (Z85.46) Active confirmed Problem Thrombocytopenia (433719418) Thrombocytopenia (D69.6) Active confirmed Problem Hyperlipidaemia (27537833) Hyperlipidemia, unspecified hyperlipidemia type (E78.5) Active confirmed Problem Constipation (56134950) Constipation (K59.00) Active confirmed Problem Hyperglycemia due to type 2 diabetes mellitus (555713625529728) Uncontrolled type 2 diabetes mellitus with hyperglycemia (E11.65) Active confirmed Problem History of malignant neoplasm of prostate (798937890) Hx of malignant neoplasm of prostate (Z85.46) Active confirmed Problem History of radiation therapy (302256088) History of radiation therapy (Z92.3) Active confirmed Problem Gastroesophageal reflux disease without esophagitis (668008126) Gastroesophageal reflux disease without esophagitis (K21.9) Active confirmed Problem Chronic kidney disease stage 3A (disorder) (210370127) Stage 3a chronic kidney disease (CKD) (N18.31) Active confirmed Problem History of adenomatous polyp of colon (017157987) History of adenomatous polyp of colon (Z86.010) Active confirmed Problem Overactive urinary bladder (disorder) (118313937) OAB (overactive bladder) (N32.81) Active confirmed Problem Type II diabetes mellitus without complication (197014166) Controlled type 2 diabetes mellitus without complication, without long-term current use of insulin (E11.9) Inactive confirmed Problem Malignant tumor of prostate (160056293) Prostate cancer (C61) Inactive confirmed Vital Signs [...] mL Encounters Encounter Location Date Provider Diagnosis [facility] [address] [place] [address] 01/23/2025 ISABELLE MCDONOUGH Benign prostatic hyperplasia with lower urinary tract symptoms N40.1 ; Gross hematuria R31.0 ; Nocturia R35.1 ; History of prostate cancer Z85.46 and History of radiation therapy Z92.[address] [facility] [address] [place] [address] 01/06/2025 DONNA ANDRADE Assessments Encounter Date Diagnosis [...] & Pelvis W & [place] [address] 01/23/2025 Bladder scan 05/25/2020 Bladder scan 10/15/2021 Bladder scan 09/17/2021 Colonoscopy, High Risk Screening-G0105 1 08/13/2021 EGD, Upper GI Diagnostic-34318 Blood Urea Nitrogen (BUN) 01/23/2025 Creatinine Serum 01/23/2025 PSA-Screening 01/23/2025 Future Test Test Name Order Date PSA Diagnostic--58270 05/25/2021 PSA Diagnostic--33515 10/12/2021 Testosterone Total 75553 10/12/2021 PSA Diagnostic--65988 03/13/2022 PSA Diagnostic--42002 09/19/2022 Testosterone Total 83682 09/19/2022 Insurance Providers Payer Name Payer Address Payer Phone Subscriber Number Group Number Insured Name Patient Relationship to Insured Coverage Start Date Coverage End Date [place] [address] [place] [id number] Rufus Gonsalez Self - patient is the insured [facility] Insurance [address] [address] [place], [place] [id number] Rufus Gonsalez Self - patient is the [...]
--- OUTSIDE RECORDS SUMMARY | 2025-07-19 10:34 | XMS_ITS | Continuity of Care Document ---
Author Organization [facility], [place], [facility] ([facility]) Address [address] [facility] [place] [address] Assessment No assessment recorded. Plan of Treatment [...] By Organization Details Last Modified Time 05/05/2025 [id number] Doing well, mood good. Vitals stable. [email or web address] Not available 05/05/2025 14:25:00 Reason for Referral None Reported. Results Created Date Observation Date Name Description Value Unit Range Abnormal Flag Note LastModifiedBy Organization Detail LastModifiedTime Result Notes None recorded. Problems Name Problem SNOMED Code Status Onset Date Resolution Date Notes Provider Name and Address Organization Details Recorded Time Benign essential hypertensi on 7061991 Active 2002 Hyperte nsion; 003 2:28PM by Jeremie Gordillo MD, Office Visit; Promote d; acuity set as *; Not Available [facility] 3 03:14:21 Arthritis 5247398 Active 2002 Arthrit is; 003 2:29PM by Jeremie Gordillo MD, Office Visit; Promote d; acuity set as *; Not Available [facility] 3 03:14:22 Chronic kidney disease due to type 2 diabetes mellitus 639661856739 Active 2024 NIKITA adan, [facility], [place] 5 14:58:38 Chronic kidney disease stage 3 550486662 [facility] 14:58:38 Benign prostatic hyperplasi a 481310367 [facility] 14:58:39 Iron deficiency anemia 43064718 Active 2024 [facility] 5 14:58:41 Problem Notes None recorded. [...] [degF] 96 % 144/68 mm[Hg] NIKITA FISHER [facility] 5 14:23:45 Social History None recorded. Functional Status None recorded. Mental Status None recorded. Family History Nothing Reported. Medical History No medical history recorded. Immunizations Vaccine Type Date Status Note Provider Nam e and Address Organization Details Recorded Time Tdap 1 completed Not Available [facility] 07/03/2025 11:46:10 Influenza, high-dose, trivalent, PF 5 completed Not Available [facility] 07/03/2025 11:46:10 Pneumococcal conjugate PCV 13 5 completed Not Available [facility] 07/03/2025 11:46:10 Influenza, high-dose, trivalent, PF 6 completed Not Available [facility] 07/03/2025 11:46:10 pneumococcal polysaccharide PPV23 7 completed Not Available [facility] 07/03/2025 11:46:10 Influenza, high-dose, trivalent, PF 7 completed Not Available [facility] 07/03/2025 11:46:10 Influenza, high-dose, trivalent, PF 8 completed Not Available [facility] 07/03/2025 11:46:10 Tdap 9 completed Not Available [facility] 07/03/2025 11:46:10 Influenza, split virus, quadrivalent, preservative 9 completed Not Available [facility] 07/03/2025 11:46:10 zoster recombinant 0 completed Not Available [facility] 07/03/2025 11:46:10 Influenza, recombinant, quadrivalent, PF 0 completed Not Available [facility] 07/03/2025 11:46:10 COVID-19, mRNA, LNP-S, PF, 30 mcg/0.3 mL dose 1 completed Not Available [facility] 07/03/2025 11:46:10 COVID-19, mRNA, LNP-S, PF, 30 mcg/0.3 mL dose 1 completed Not Available [facility] 07/03/2025 11:46:10 zoster recombinant 1 completed Not Available [facility] 07/03/2025 11:46:10 COVID-19, mRNA, LNP-S, PF, 30 mcg/0.3 mL dose 1 completed Not Available [facility] 07/03/2025 11:46:10 Influenza, adjuvanted, quadrivalent, PF 2 completed Not Available [facility] 07/03/2025 11:46:10 COVID-19, mRNA, LNP-S, bivalent, PF, 30 mcg/0.3 mL dose 2 completed Not Available [facility] 07/03/2025 11:46:10 Influenza, high-dose, quadrivalent, PF 3 completed [facility] Available [facility] 07/03/2025 11:46:10 Tdap 3 completed Not Available [facility] 07/03/2025 11:46:10 Influenza, split virus, trivalent, PF 4 completed Not Available [facility] 07/03/2025 11:46:10 Influenza, split virus, trivalent, preservative 3 completed Not Available [facility] 02/25/2023 02:31:40 Past Encounters Encounter ID Performer Location Encounter Start Date Encounter Closed Date Diagnosis/Indication Diagnosis SNOMED-CT Code Diagnosis ICD10 Code Diagnosis IMO Codes Diagnosis Note [id number] Mike Serrano DO [facility] ([address] [address] 04/10/2025 12:59:18 04/15/2025 12:01:05 Benign essential hypertension 4995606 I10 Chronic ki dney disease due to type 2 diabetes mellitus 2917367854 08 E11.22 2838143910 Chronic ki dney disease stage 3 520883807 N18.30 0963736205 Benign pro static hyperplasia 981425112 N40.1 14376998 Iron defic iency anemia 84523567 D50.8 5787933 [id number] Mike Serrano DO [facility] ([facility]) [address] [place] [address] 05/05/2025 12:44:01 05/07/2025 07:51:52 Benign essential hypertension 0157428 I10 Benign pro static hyperplasia 660255714 N40.1 50457578 Arthritis 0184138 M19.90 Chronic ki dney disease stage 3 140237183 N18.30 6943161595 Chronic ki dney disease due to type 2 diabetes mellitus 7205705242 08 E11.22 4943828553 Iron defic iency anemia 70875131 D50.8 2222731 Health Concerns Section Related Observation LastModified by Organization Detai ls LastModified Time None Recorded Concern Status LastModified by Organization Details LastModified Time None Recorded Payers Encounter Date Sequence Insurance Name Policy Number Policy Elliott Covered Member ID Elliott Member ID Guarantor Name 05/05/2025 1 MEDICARE [place]: [facility] Rufus Gonsalez [id number] Rufus Gonsalez Notes Date Note Type Note Provider Name and Address Organization Details Recorded Time text/html HypertensionReported by PatientHPIFor severity, patient reportsgrade 1 (130-139/80-89). For duration, patient reportshas noted for years. For alleviating factors, patient reportsmedication.ROS as noted in the HPI no complaints per staff or patient. Mike Serrano DO [address] [place] [address], [address], [facility], LShaw[facility] 05/05/2025 15:09:09
--- OUTSIDE RECORDS SUMMARY | 2025-07-19 10:34 | XMS_ITS | Clinical Summary ---
Author Organization Formerly [facility] Facility Address [address] [place] [address] Care Team Providers Care Booking Clerk Name Role Phone Jay Tineo MD Primary Care Provider [phone] Social History Tobacco Use Types Packs/Day Years [...] patient's age to complete this topic Insurance [facility] Regions 1,2,3 (VACCN) Care Teams Booking Clerk Relationship Specialty Start Date End Date Jay Tineo MD [address] [place] [address] PCP - General Family Medicine 08/04/21
--- OUTSIDE RECORDS SUMMARY | 2025-07-19 10:34 | XMS_ITS | Continuity of Care Document ---
Author Organization [facility], L.[place], [facility] ([facility]) Address [address] [place] [address] Assessment No assessment recorded. Plan of Treatment [...] Modified By Organization Details Last Modified Time 07/03/2025 [id number] Worsening RLS symptoms at night, will increase requip to 4mg at hs. [email or web address] Not available 07/03/2025 12:12:27 Reason for Referral None Reported. Problems Name Problem SNOMED Code Status Onset Date Resolution Date Notes Provider Name and Address Organization Details Recorded Time Benign essential hypertensi on 4870784 Active 2002 Hyperte nsion; 003 2:28PM by Jeremie Gordillo MD, Office Visit; Promote d; acuity set as *; Not Available [facility] 3 03:14:21 Arthritis 7320255 Active 2002 Arthrit is; 003 2:29PM by Jeremie Gordillo MD, Office Visit; Promote d; acuity set as *; Not Available [facility] 3 03:14:22 Chronic kidney disease due to type 2 diabetes mellitus 281832880209 Active 2024 [facility] 14:58:38 Chronic kidney disease stage 3 637543200 Active 2024 NIKITA adan [facility] 5 14:58:38 Benign prostatic hyperplasi a 159419805 Active 2024 NIKITA adan [facility] 5 14:58:39 Iron deficiency anemia 45708540 Active 2024 NIKITA adan [facility] 5 14:58:41 Problem Notes None recorded. Medical [...] Address Organization Details Last Updated DateTime 5 151626. 88 g 72 /min 21 /min 96.9 [degF] 96 % 130/78 mm[Hg] NIKITA VELASQUEZ [facility], [facility] 5 12:08:49 Social History None recorded. Functional Status None recorded. Mental Status None recorded. Family History Nothing Reported. Medical History No medical history recorded. Immunizations Vaccine Type Date Status Note Provider Nam e and Address Organization Details Recorded Time Tdap 1 completed Not Available [facility] 07/03/2025 11:46:10 Influenza, high-dose, trivalent, PF 5 completed Not Available [facility] 07/03/2025 11:46:10 Pneumococcal conjugate PCV 13 5 completed Not Available [facility] 07/03/2025 11:46:10 Influenza, high-dose, trivalent, PF 6 completed Not Available [facility] 07/03/2025 11:46:10 pneumococcal polysaccharide PPV23 7 completed Not Available [facility] 07/03/2025 11:46:10 Influenza, high-dose, trivalent, PF 7 completed Not Available [facility] 07/03/2025 11:46:10 Influenza, high-dose, trivalent, PF 8 completed Not Available [facility] 07/03/2025 11:46:10 Tdap 9 completed Not Available [facility] 07/03/2025 11:46:10 Influenza, split virus, quadrivalent, preservative 9 completed Not Available [facility] 07/03/2025 11:46:10 zoster recombinant 0 completed [...] 1 completed Not Available [facility] 07/03/2025 11:46:10 Influenza, adjuvanted, quadrivalent, PF 2 completed Not Available [facility] 07/03/2025 11:46:10 COVID-19, mRNA, LNP-S, bivalent, PF, 30 mcg/0.3 mL dose 2 completed Not Available [facility] 07/03/2025 11:46:10 Influenza, high-dose, quadrivalent, PF 3 completed Not Available [facility] 07/03/2025 11:46:10 Tdap 3 completed Not Available [facility] 07/03/2025 11:46:10 Influenza, split virus, trivalent, PF 4 completed Not Available [facility] 07/03/2025 11:46:10 Influenza, split virus, trivalent, preservative 3 completed Not Available [facility] 02/25/2023 02:31:40 Past Encounters Encounter ID Performer Location Encounter Start Date Encounter Closed Date Diagnosis/Indication Diagnosis SNOMED-CT Code Diagnosis ICD10 Code Diagnosis IMO Codes Diagnosis Note [id number] Mike Serrano DO [facility] ([facility]) [address] [place] [address] 06/23/2025 12:00:18 07/01/2025 14:06:15 Benign essential hypertension 3040831 I10 Benign pro static hyperplasia 997368004 N40.1 62443644 Arthritis 4992389 M19.90 Chronic ki dney disease stage 3 831968232 N18.30 0133692659 Chronic ki dney disease due to type 2 diabetes mellitus 5936813367 08 E11.22 8340429394 Iron defic iency anemia 34768761 D50.8 1285484 [id number] Mike Serrano DO [facility] ([facility]) [address] [place] [address] 07/03/2025 11:45:59 07/14/2025 09:26:29 Benign essential hypertension 3609151 I10 Arthritis 9644594 M19.90 Chronic ki dney disease stage 3 063747598 N18.30 8609344304 Chronic ki dney disease due to type 2 diabetes mellitus 8691060698 08 E11.22 4291960237 Iron defic iency anemia 33873253 D50.8 6313975 Benign pro static hyperplasia 874487409 N40.1 90052120 Health Concerns Section Related Observation LastModified by Organization Detai ls LastModified Time None Recorded Concern Status LastModified by Organization Details LastModified Time None Recorded Payers Encounter Date Sequence Insurance Name Policy Number Policy Elliott Covered Member ID Elliott Member ID Guarantor Name 07/03/2025 1 [place] [employer] Rufus Gonsalez [id number] Rufus Gonsalez 07/03/2025 2 [place] Rufus Gonsalez [id number] Rufus Gonsalez Notes Date Note Type Note Provider Name and Address Organization Details Recorded Time 5 text/html HypertensionReported by PatientHPIFor severity, patient reportsgrade 1 (130-139/80-89). For duration, patient reportshas noted for years. For alleviating factors, patient reportsmedication.ROS as noted in the HPI c/o worsening RLS symptoms. Mike Serrano DO [address] [place] [address], [address], [facility], [place] 07/11/2025 16:35:50
--- OUTSIDE RECORDS SUMMARY | 2025-07-19 10:34 | XMS_ITS | Encounter Summary ---
Author Organization [facility], [facility] Address [address] [facility] [address] [place] [address] Phone Care Team Providers Care Sewer Pipe Layer Name Role Phone Jay Tineo MD Primary Care Provider [phone] Encounter Details Date Type Department Care Team (Late st Contact Info) Description 09/21/2021 Orders Only [facility] [address] [facility] [address] [place] [address] Type 2 diabetes mellitus with [...] (HCC) documented in this encounter Care Teams Sewer Pipe Layer Relationship Specialty Start Date End Date Jay Tineo MD [address] [place] [address] PCP - General Family Medicine 08/04/21 documented as of this encounter
--- OUTSIDE RECORDS SUMMARY | 2025-07-19 10:35 | XMS_ITS | Patient Health Record ---
Author Organization [facility] Address [address] [place] [address] Care Team Providers Care Dispute Specialist Name Role Phone Jesus Sarmiento Primary Care Provider Vivian Henao [phone] Allergies Allergen (clinical drug ingredient) Drug/Non Drug [...] IM Intramuscular 05/25/2021 Administered Influenza (whole), CPT 10645 Inactive Unknown 04/30/2017 Administered Influenza (whole), CPT 84597 Inactive Unknown 04/30/2018 Administered Pneumococcal polysaccharide PPV23 [...] Status W/U Status Risk Notes Problem Nocturia (098409474) Nocturia (R35.1) Active confirmed Problem Lower urinary tract symptoms due to benign prostatic hypertrophy (65608103161051) Benign prostatic hyperplasia with lower urinary tract symptoms (N40.1) Active confirmed Problem Essential hypertension (00709695) Essential hypertension (I10) Active confirmed Problem Gastroesophageal reflux disease without esophagitis (555888842) Gastroesophageal reflux disease without esophagitis (K21.9) Active confirmed Problem Iron deficiency anemia (27974973) Iron deficiency anemia, unspecified iron deficiency anemia type (D50.9) Active confirmed Problem Osteoarthritis (680918413) Osteoarthritis, unspecified osteoarthritis type, unspecified site (M19.90) Active confirmed Problem Hyperglycemia due to type 2 diabetes mellitus (837558247989113) Uncontrolled type 2 diabetes mellitus with hyperglycemia (E11.65) Active confirmed Problem Hyperlipidaemia (08847682) Hyperlipidemia, unspecified hyperlipidemia type (E78.5) Active confirmed Problem History of malignant neoplasm of prostate (872142220) Hx of malignant neoplasm of prostate (Z85.46) Active confirmed Problem Constipation (31460106) Constipation (K59.00) Active confirmed Problem Thrombocytopenia (236487847) Thrombocytopenia (D69.6) Active confirmed Problem Dysphagia (52157617) Pharyngoesophageal dysphagia (R13.14) Active confirmed Problem Overactive urinary bladder (disorder) (379762374) OAB (overactive bladder) (N32.81) Active confirmed Problem History of malignant neoplasm of prostate (306260457) History of prostate cancer (Z85.46) Active confirmed Problem History of adenomatous polyp of colon (023285054) History of adenomatous polyp of colon (Z86.010) Active confirmed Problem History of radiation therapy (471950075) History of radiation therapy (Z92.3) Active confirmed Problem Chronic kidney disease stage 3A (disorder) (720727472) Stage 3a chronic kidney disease (CKD) (N18.31) Active confirmed Problem Type II diabetes mellitus without complication (417688696) Controlled type 2 diabetes mellitus without complication, without long-term current use of insulin (E11.9) Inactive confirmed Problem Malignant tumor of prostate (308202508) Prostate cancer (C61) Inactive confirmed Plan Of Treatment No Information Insurance Providers Payer Name Payer Address Payer Phone Subscriber Number Group Number Insured Name Patient Relationship to Insured Coverage Start Date Coverage End Date [place] Medicare [address] [place] [phone] [id number] Rufus Gonsalez Self - patient is the insured [employer] [address] [address] [place] [phone] [id number] Rufus Gonsalez Self - patient is the [...]
[2025-07-19 10:48] LABS: Hematocrit 31.9 % (37-53); Hemoglobin 9.80 g/dL (11.27-16.99); Mean Corpuscular HGB Conc 30.7 g/dL (30-55); Mean Corpuscular Hemoglobin 26.9 pg (27-33); Mean Corpuscular Volume 87.6 fl (82-101); Nucleated Red Blood Cells % 0 %; Platelet Count 161 10^3/cmm (157-399); Red Blood Count 3.64 10^6/uL (3.85-5.65); White Blood Count 4.43 10^3/uL (3.29-11.43)
[2025-07-19 10:54] VITALS: BP 150/85; PULSE 70; O2SAT 94
[2025-07-19 10:55] LABS: Glucose Urine UA Negative (Normal); Nitrate Urine Positive (Negative); Specific Gravity, Urine 1.021 (1.005-1.030)
[2025-07-19 11:01] LABS: INR 0.96 (0.8-1.2); Prothrombin Time 13.50 SECONDS (12.1-14.9)
[2025-07-19 11:03] LABS: Partial Thromboplastin Time 25.0 SECONDS (23.9-36.7)
[2025-07-19 11:06] LABS: Lactic Sepsis W/Reflex 1.4 mmol/L (0.5-2.2)
[2025-07-19 11:14] LABS: Alanine Aminotransferase 11 U/L (0-41); Albumin Level 3.9 g/dL (3.5-5.2); Alkaline Phosphatase 51 U/L (40-130); Anion Gap 16.3 (5-19); Aspartate Amino Transferase 19 U/L (0-40); Blood Urea Nitrogen 30 mg/dL (8-23); Calcium 9.3 mg/dL (8.5-10.5); Carbon Dioxide 23 mmol/L (22-29); Chloride 102 mmol/L (98-107); Globulin 2.0 g/dL (1.3-4.6); Glucose 146 mg/dL (65-115); Osmolality Calculated 293 mOsm/kg (285-295); Potassium 4.3 mmol/L (3.5-5.1); Sodium 137 mmol/L (136-145); Total Protein 5.9 g/dL (6.6-8.7)
--- NOTE | 2025-07-19 11:23 | CTR_ITS ---
PROCEDURE INFORMATION: Exam: CT Abdomen And Pelvis Without Contrast Exam date and time: 07/19/2025 11:31 AM Age: 85 years old Clinical indication: Other: Hematuria, malaise. Denies dysuria, n/v/d, abd pain. Onset today. PT has stage 3 ckd; Additional info: Urinary tract infection, renal failure, hematuria TECHNIQUE: Imaging protocol: Computed tomography of the abdomen and pelvis without contrast. Radiation optimization: All CT scans at this facility use at least one of these dose optimization techniques: automated exposure control; mA and/or kV adjustment per patient size (includes targeted exams where dose is matched to clinical indication); or iterative reconstruction. COMPARISON: CR (CHEST, ) 07/10/2025 5:24 AM RADIATION DOSE METRICS: Total DLP (mGy-cm): 993.17 FINDINGS: Lungs: Mucous plugging in the right lower lobe. Diaphragm: Large hiatal hernia. Liver: Normal. No mass. Gallbladder and biliary ducts: There is a gallstone present. Pancreas: Normal. No ductal dilation. Spleen: Normal. No splenomegaly. Adrenal glands: Normal. No mass. Kidneys and ureters: Left renal indeterminate 1 x 0.9 cm hyperdense lesion. Right renal 3 mm stone. Bilateral renal simple cysts. Stomach and bowel: Sigmoid and descending colon diverticulosis. No small bowel loop dilatation. Appendix: Appendix is normal. Intraperitoneal space: Unremarkable. No free air. No significant fluid collection. Vasculature: Mild calcified atherosclerotic changes are seen throughout the abdominal aorta. Lymph nodes: Unremarkable. No enlarged lymph nodes. Urinary bladder: Unremarkable as visualized. Reproductive: Unremarkable as visualized. Bones/joints: Mild lumbar spine degenerative changes. Soft tissues: Indeterminate soft tissue density lesion in the bladder on the right side 1.3 x 2.1 cm. Fat containing umbilical hernia. CT/CT abdomen pelvis wo con [id number] IMPRESSION: 1. Indeterminate soft tissue density lesion in the bladder on the right side 1.3 x 2.1 cm. Neoplasm can not be excluded. Correlation with cystoscopy finding may be helpful. 2. Mucous plugging in the right lower lobe. 3. Left renal indeterminate 1 x 0.9 cm hyperdense lesion. MRI of the kidney without and with contrast for further evaluation is advised. 4. Right renal 3 mm stone. 5. No obstructive uropathy. 6. Large hiatal hernia. 7. Cholelithiasis 8. Sigmoid and descending colon diverticulosis. 9. Additional findings as described. COMMENTS: Consistent with the [employer]'s Incidental Findings Committee white paper (J [employer] 2018): Any incidental renal lesion less than 1 cm or classified as too small to characterize, or any incidental cystic renal lesion characterized as simple-appearing, is likely benign. No follow-up imaging is recommended for these lesions per consensus recommendations based on imaging criteria.
[2025-07-19] MEDS: cefepime 2,000 mg SDV 2000 MG IVP (11:41)
[2025-07-19 11:43] VITALS: BP 150/83; PULSE 69; O2SAT 97
[2025-07-19 12:28] VITALS: RESP 20; O2SAT 96
[2025-07-19] MEDS: morphine 4 mg/mL SDV 1 mL IVP (12:28)
[2025-07-19] MEDS: ondansetron 2 mg/ML SDV 2 mL 4 MG IVP (12:28)
[2025-07-19 13:00] VITALS: BP 106/64; PULSE 68; O2SAT 93
--- NOTE | 2025-07-19 13:09 | PC.NURSE ---
pt report called to [facility] nurse at [facility] at 1308.
[2025-07-19 13:15] VITALS: BP 106/64; PULSE 64; O2SAT 96
== END 2025-07-19 13:45 | disposition home or self-care (01) ==
PROVIDERS: Emergency Provider Emergency Medicine; PCP Internal Medicine
DX: N39.0 Urinary tract infection, site not specified (principal); N32.89 Other specified disorders of bladder; E86.0 Dehydration; Z79.84 Long term (current) use of oral hypoglycemic drugs; Z79.82 Long term (current) use of aspirin; R53.81 Other malaise; E78.5 Hyperlipidemia, unspecified; E11.22 Type 2 diabetes mellitus with diabetic chronic kidney disease; I12.9 Hypertensive chronic kidney disease with stage 1 through stage 4 chronic kidney disease, or unspecified chronic kidney disease; N18.30 Chronic kidney disease, stage 3 unspecified; Z86.73 Personal history of transient ischemic attack (TIA), and cerebral infarction without residual deficits; Z87.891 Personal history of nicotine dependence
CPT/HCPCS: 36415; 74176; 80053; 81001; 83605; 85025; 85610; 85730; 86140; 87040; 87077; 87086; 87186; 96361; 96374; 96375; 99285; J0692; J2270; J2405; J7030